=== PATIENT | male | born 1970 | race Caucasian/White ===

== ENCOUNTER 2016-10-01 12:42 | Emergency (ER) | payer OTHER ==
[2016-10-01 12:51] VITALS: BP 145/80; PULSE 71; RESP 18; TEMP 98.7
--- NOTE | 2016-10-01 13:25 | ED ---
General Adult HPI - General Chief complaint: Dental/Oral Stated complaint: Dental Pain Time Seen by Provider: 10/01/16 12:52 Source: patient, RN notes reviewed Mode of arrival: ambulatory Limitations: no limitations - History of Present Illness Initial comments: Patient 46-year-old male who presents emergency room today with a chief complaint of increased dental pain over the last 2 days. He does admit to a bad tooth of tooth #32. She states is been ongoing off and on over the last several months. States he was scheduled to have it removed. Patient states increased pain last 2 days. Patient denies any drainage or discharge. Does admit to some mild swelling. Patient denies any recent fever, chills, shortness of breath, chest pain, back pain, abdominal pain, nausea or vomiting, numbness or tingling, dysuria or hematuria, constipation or diarrhea, headaches or visual changes, or any other complaints. - Related Data Home Medications Medication Instructions Recorded Confirmed HYDROcodone/APAP 5-325MG [Padroni 5] 1 - 2 each PO Q6HR PRN 12/28/14 12/28/14 PARoxetine [Paxil] 20 mg PO DAILY 12/28/14 12/28/14 Previous Rx's Medication Instructions Recorded Clindamycin HCl [Cleocin] 300 mg PO Q6H 10 Days 10/01/16 Hydrocodone/Acetaminophen [Padroni 1 each PO Q6HR PRN #15 tab 10/01/16 5-325] Ibuprofen [Motrin] 800 mg PO Q6HR PRN #30 tab 10/01/16 Allergies Allergy/AdvReac Type Severity Reaction Status Date / Time Penicillins Allergy Unknown Verified 10/01/16 12:51 Childhood Review of Systems ROS Statement: Those systems with pertinent positive or pertinent negative responses have been documented in the HPI. ROS Other: All systems not noted in ROS Statement are negative. Past Medical History Past Medical History: No Reported History History of Any Multi-Drug Resistant Organisms: None Reported Past Surgical History: No Surgical Hx Reported Past Anesthesia/Blood Transfusion Reactions: No Reported Reaction Past Psychological History: Anxiety Smoking Status: Former smoker Past Alcohol Use History: Occasional Past Drug Use History: None Reported - Past Family History Father Family Medical History: Cancer Additional Family Medical History / Comment(s): Brain CA Mother Additional Family Medical History / Comment(s): stroke General Exam - General Exam Comments Initial Comments: General: The patient is awake and alert, in no distress, and does not appear acutely ill. Eye: Pupils are equal, round and reactive to light, extra-ocular movements are intact. No nystagmus. There is normal conjunctiva bilaterally. No signs of icterus. Ears, nose, mouth and throat: There are moist mucous membranes and no oral lesions. Patient does have fractured tooth #32 down to the gumline. Tender over tooth #31. No sign of abscess. Neck: The neck is supple, there is no tenderness or JVD. Cardiovascular: There is a regular rate and rhythm. No murmur, rub or gallop is appreciated. Respiratory: Lungs are clear to auscultation, respirations are non-labored, breath sounds are equal. No wheezes, stridor, rales, or rhonchi. Musculoskeletal: Normal ROM, no tenderness. Strength 5/5. Sensation intact. Pulses equal bilaterally 2+. Neurological: A&O x 3. CN II-XII intact, There are no obvious motor or sensory deficits. Coordination appears grossly intact. Speech is normal. Skin: Skin is warm and dry and no rashes or lesions are noted. Psychiatric: Cooperative, appropriate mood & affect, normal judgment. Limitations: no limitations Course Vital Signs 10/01/16 12:49 Temperature 98.7 F Pulse Rate 71 Respiratory 18 Rate Blood Pressure 145/80 O2 Sat by Pulse 96 Oximetry Medical Decision Making - Medical Decision Making Patient advised to follow-up with oral surgeon. Will be started on clindamycin. Given short prescription of pain medication. Disposition Clinical Impression: Dental abscess Disposition: HOME SELF-CARE Condition: Good Instructions: Dental Abscess (ED) Additional Instructions: Please follow-up with oral surgeon as discussed. Please use antibiotic as prescribed pain medication as needed. Please be aware that pain medicines may make you drowsy. Please return if any symptoms increase or worsen. Prescriptions: Clindamycin HCl [Cleocin] 300 mg PO Q6H 10 Days Hydrocodone/Acetaminophen [Padroni 5-325] 1 each PO Q6HR PRN #15 tab PRN Reason: Pain Ibuprofen [Motrin] 800 mg PO Q6HR PRN #30 tab PRN Reason: Pain Time of Disposition: 13:14
== END 2016-10-01 13:33 | disposition home or self-care (01) ==
LOC: EC 12:42
DX: K04.7 Periapical abscess without sinus (principal); F41.9 Anxiety disorder, unspecified; Z87.891 Personal history of nicotine dependence; Z79.899 Other long term (current) drug therapy; Z88.0 Allergy status to penicillin

== ENCOUNTER 2017-01-27 11:53 | Inpatient (IN) | payer OTHER ==
[2017-01-27] MEDS ORDERED: THIAMINE 100 MG/ML 2 ML VIAL IVPB STA (12:25)
[2017-01-27] MEDS ORDERED: SODIUM CHLORIDE 0.9% 1,000 ML IV STA (12:25)
[2017-01-27] MEDS ORDERED: SODIUM CHLORIDE 0.9% 500 ML IV STA (12:25)
[2017-01-27] MEDS ORDERED: FOLIC ACID 1 MG TAB PO STA (12:31)
[2017-01-27 12:35] LABS: Basophils # (A) 0.1 k/uL (0-0.2); Basophils % (A) 1 %; CH 32.4; CHCM 34.6; Eosinophils # (A) 0.1 k/uL (0-0.7); Eosinophils % (A) 1 %; HCT 44.5 % (39.0-53.0); HDW 2.05; HGB 14.9 gm/dL (13.0-17.5); Luc % (Auto) 3; Lymphocytes # (A) 1.6 k/uL (1.0-4.8); Lymphocytes % (A) 20 %; MCH 31.5 pg (25.0-35.0); MCHC 33.6 g/dL (31.0-37.0); MCV 93.8 fL (80.0-100.0); Mean Platelet Volume 7.7; Monocytes # (A) 0.5 k/uL (0-1.0); Monocytes % (A) 6 %; Neutrophils # (A) 5.7 k/uL (1.3-7.7); Neutrophils % (A) 71 %; RBC 4.74 m/uL (4.30-5.90); RDW 14.2 % (11.5-15.5); WBC 8.1 k/uL (3.8-10.6); WBC (Perox) 7.76
[2017-01-27 12:42] LABS: ALT 135 U/L (21-72); AST 106 U/L (17-59); Alkaline Phosphatase 61 U/L (38-126); Amylase 92 U/L (30-110); Anion Gap 16 mmol/L; Blood Urea Nitrogen 11 mg/dL (9-20); Calcium 9.4 mg/dL (8.4-10.2); Carbon Dioxide 20 mmol/L (22-30); Chloride 107 mmol/L (98-107); Glucose 180 mg/dL (74-99); Non-African American GFR(MDRD) >60 (>60 ml/min/1.73 sqM); Potassium 4.4 mmol/L (3.5-5.1); Sodium 143 mmol/L (137-145); Total Bilirubin 0.6 mg/dL (0.2-1.3); Total Protein 7.7 g/dL (6.3-8.2)
[2017-01-27] MEDS ORDERED: SODIUM CHLORIDE 0.9% 1,000 ML with MVI, ADULT NO.4 WITH VIT K 10 ML, THIAMINE 100 MG, F... IV ONE ×4 (12:43)
[2017-01-27] MEDS ORDERED: LORazepam 2 MG/ML SYRINGE IV STA (12:44)
[2017-01-27 12:50] LABS: Alcohol 444 mg/dL
[2017-01-27 13:10] LABS: Appearance,Urine Clear (Clear); Bilirubin,Urine Negative (Negative); Glucose,Urine (UA) Trace (Negative); Ketones,Urine Negative (Negative); Leukocyte Esterase,Urine Negative (Negative); Nitrite,Urine Negative (Negative); PH, Urine 6.5 (5.0-8.0); Protein,Urine Negative (Negative); Specific Gravity,Urine 1.002 (1.001-1.035); UA Billing (MACRO vs. MICRO) CHEM; Urobilinogen,Urine <2.0 mg/dL (<2.0)
--- NOTE | 2017-01-27 13:29 | ED ---
General Adult HPI - General Chief complaint: Alcohol Stated complaint: withdrawls Time Seen by Provider: 01/27/17 12:06 Source: patient, RN notes reviewed, old records reviewed Mode of arrival: ambulatory Limitations: no limitations - History of Present Illness Initial comments: A 47-year-old male the ER for evaluation of delirium, severe alcohol toxicity. Going to withdraw from alcohol. Alcohol withdrawal. Patient states his last drink was earlier today, started trying to quit since last night. Patient's been hallucinating, not acting appropriately per . Patient denies homicidal or suicidal. Patient is argumentative on exam - Related Data Home Medications Medication Instructions Recorded Confirmed HYDROcodone/APAP 5-325MG [Bolivar 5] 1 - 2 each PO Q6HR PRN 12/28/14 12/28/14 PARoxetine [Paxil] 20 mg PO DAILY 12/28/14 12/28/14 Previous Rx's Medication Instructions Recorded Clindamycin HCl [Cleocin] 300 mg PO Q6H 10 Days 10/01/16 Hydrocodone/Acetaminophen [B[place]ivar 1 each PO Q6HR PRN #15 tab 10/01/16 5-325] Ibuprofen [Motrin] 800 mg PO Q6HR PRN #30 tab 10/01/16 Allergies Allergy/AdvReac Type Severity Reaction Status Date / Time Penicillins Allergy Unknown Verified 01/27/17 11:58 Childhood Review of Systems ROS Statement: Those systems with pertinent positive or pertinent negative responses have been documented in the HPI. ROS Other: All systems not noted in ROS Statement are negative. Past Medical History Past Medical History: No Reported History Additional Past Medical History / Comment(s): ETOH abuse History of Any Multi-Drug Resistant Organisms: None Reported Past Surgical History: No Surgical Hx Reported Past Anesthesia/Blood Transfusion Reactions: No Reported Reaction Past Psychological History: Anxiety Smoking Status: Former smoker Past Alcohol Use History: Daily, Heavy Past Drug Use History: None Reported - Past Family History Father Family Medical History: Cancer Additional Family Medical History / Comment(s): Brain CA Mother Additional Family Medical History / Comment(s): stroke General Exam Limitations: no limitations General appearance: alert, in no apparent distress Head exam: Present: atraumatic, normocephalic, normal inspection Eye exam: Present: normal appearance, PERRL, EOMI. Absent: scleral icterus, conjunctival injection, periorbital swelling ENT exam: Present: normal exam, mucous membranes moist Neck exam: Present: normal inspection. Absent: tenderness, meningismus, lymphadenopathy Respiratory exam: Present: normal lung sounds bilaterally. Absent: respiratory distress, wheezes, rales, rhonchi, stridor Cardiovascular Exam: Present: regular rate, normal rhythm, normal heart sounds. Absent: systolic murmur, diastolic murmur, rubs, gallop, clicks GI/Abdominal exam: Present: soft, normal bowel sounds. Absent: distended, tenderness, guarding, rebound, rigid Extremities exam: Present: normal inspection, full ROM, normal capillary refill. Absent: tenderness, pedal edema, joint swelling, calf tenderness Back exam: Present: normal inspection Neurological exam: Present: alert, oriented X3, CN II-XII intact Psychiatric exam: Present: normal affect, normal mood Skin exam: Present: warm, dry, intact, normal color. Absent: rash Course Vital Signs 01/27/17 01/27/17 11:55 12:21 Temperature 97.5 F L Pulse Rate 77 76 Respiratory 18 26 H Rate Blood Pressure 136/76 128/84 O2 Sat by Pulse 98 97 Oximetry - Reevaluation(s) Reevaluation #1: 01/27/17 13:29 Patient eating chemical sedation regarding actions Medical Decision Making - Medical Decision Making 47 LDR for evaluation of alcohol cultural, patient's acutely alcohol intoxicated , [place]. Patient will be admitted for monitoring of vital signs, monitoring of electrolytes, rehydration, monitoring of acute alcoholic trauma - Lab Data Result diagrams: 01/27/17 12:15 01/27/17 12:15 Lab Results 01/27/17 01/27/17 01/27/17 Range/Units 12:15 12:15 12:15 WBC 8.1 (3.8-10.6) k/uL RBC 4.74 (4.30-5.90) m/uL Hgb 14.9 (13.0-17.5) gm/dL Hct 44.5 (39.0-53.0) % MCV 93.8 (80.0-100.0) fL MCH 31.5 (25.0-35.0) pg MCHC 33.6 (31.0-37.0) g/dL RDW 14.2 (11.5-15.5) % Plt Count 218 (150-450) k/uL Neutrophils % 71 % Lymphocytes % 20 % Monocytes % 6 % Eosinophils % 1 % Basophils % 1 % Neutrophils # 5.7 (1.3-7.7) k/uL Lymphocytes # 1.6 (1.0-4.8) k/uL Monocytes # 0.5 (0-1.0) k/uL Eosinophils # 0.1 (0-0.7) k/uL Basophils # 0.1 (0-0.2) k/uL Sodium 143 (137-145) mmol/L Potassium 4.4 (3.5-5.1) mmol/L Chloride 107 (98-107) mmol/L Carbon Dioxide 20 L (22-30) mmol/L Anion Gap 16 mmol/L BUN 11 (9-20) mg/dL Creatinine 0.62 L (0.66-1.25) mg/dL Est GFR (MDRD) Af Amer >60 (>60 ml/min/1.73 sqM) Est GFR (MDRD) Non-Af >60 (>60 ml/min/1.73 sqM) Glucose 180 H (74-99) mg/dL Calcium 9.4 (8.4-10.2) mg/dL Phosphorus 2.8 (2.5-4.5) mg/dL Magnesium 2.0 (1.6-2.3) mg/dL Total Bilirubin 0.6 (0.2-1.3) mg/dL AST 106 H (17-59) U/L ALT 135 H (21-72) U/L Alkaline Phosphatase 61 (38-126) U/L Total Protein 7.7 (6.3-8.2) g/dL Albumin 4.9 (3.5-5.0) g/dL Amylase 92 (30-110) U/L Lipase 261 (23-300) U/L Urine Color Urine Appearance (Clear) Urine pH (5.0-8.0) Ur Specific Ackerman (1.001-1.035) Urine Protein (Negative) Urine Glucose (UA) (Negative) Urine Ketones (Negative) Urine Blood (Negative) Urine Nitrite (Negative) Urine Bilirubin (Negative) Urine Urobilinogen (<2.0) mg/dL Ur Leukocyte Esterase (Negative) Urine Opiates Screen (NotDetected) Ur Oxycodone Screen (NotDetected) Urine Methadone Screen (NotDetected) Ur Propoxyphene Screen (NotDetected) Ur Barbiturates Screen (NotDetected) U Tricyclic Antidepress (NotDetected) Ur Phencyclidine Scrn (NotDetected) Ur Amphetamines Screen (NotDetected) U Methamphetamines Scrn (NotDetected) U Benzodiazepines Scrn (NotDetected) Urine Cocaine Screen (NotDetected) U Marijuana (THC) Screen (NotDetected) Serum Alcohol 444 mg/dL 01/27/17 Range/Units 12:54 WBC (3.8-10.6) k/uL RBC (4.30-5.90) m/uL Hgb (13.0-17.5) gm/dL Hct (39.0-53.0) % MCV (80.0-100.0) fL MCH (25.0-35.0) pg MCHC (31.0-37.0) g/dL RDW (11.5-15.5) % Plt Count (150-450) k/uL Neutrophils % % Lymphocytes % % Monocytes % % Eosinophils % % Basophils % % Neutrophils # (1.3-7.7) k/uL Lymphocytes # (1.0-4.8) k/uL Monocytes # (0-1.0) k/uL Eosinophils # (0-0.7) k/uL Basophils # (0-0.2) k/uL Sodium (137-145) mmol/L Potassium (3.5-5.1) mmol/L Chloride (98-107) mmol/L Carbon Dioxide (22-30) mmol/L Anion Gap mmol/L BUN (9-20) mg/dL Creatinine (0.66-1.25) mg/dL Est GFR (MDRD) Af Amer (>60 ml/min/1.73 sqM) Est GFR (MDRD) Non-Af (>60 ml/min/1.73 sqM) Glucose (74-99) mg/dL Calcium (8.4-10.2) mg/dL Phosphorus (2.5-4.5) mg/dL Magnesium (1.6-2.3) mg/dL Total Bilirubin (0.2-1.3) mg/dL AST (17-59) U/L ALT (21-72) U/L Alkaline Phosphatase (38-126) U/L Total Protein (6.3-8.2) g/dL Albumin (3.5-5.0) g/dL Amylase (30-110) U/L Lipase (23-300) U/L Urine Color Colorless Urine Appearance Clear (Clear) Urine pH 6.5 (5.0-8.0) Ur Specific Ackerman 1.002 (1.001-1.035) Urine Protein Negative (Negative) Urine Glucose (UA) Trace H (Negative) Urine Ketones Negative (Negative) Urine Blood Negative (Negative) Urine Nitrite Negative (Negative) Urine Bilirubin Negative (Negative) Urine Urobilinogen <2.0 (<2.0) mg/dL Ur Leukocyte Esterase Negative (Negative) Urine Opiates Screen Not Detected (NotDetected) Ur Oxycodone Screen Not Detected (NotDetected) Urine Methadone Screen Not Detected (NotDetected) Ur Propoxyphene Screen Not Detected (NotDetected) Ur Barbiturates Screen Not Detected (NotDetected) U Tricyclic Antidepress Not Detected (NotDetected) Ur Phencyclidine Scrn Not Detected (NotDetected) Ur Amphetamines Screen Not Detected (NotDetected) U Methamphetamines Scrn Not Detected (NotDetected) U Benzodiazepines Scrn Not Detected (NotDetected) Urine Cocaine Screen Not Detected (NotDetected) U Marijuana (THC) Screen Not Detected (NotDetected) Serum Alcohol mg/dL Disposition Clinical Impression: Alcoholic intoxication, Toxic effect of alcohol, Alcoholic hepatitis, Delirium Disposition: ADMITTED IP TO THIS [facility] Condition: Fair Referrals: Parmjit Rider MD [Primary Care Provider] - 1-2 days
[2017-01-27] MEDS ORDERED: THIAMINE 100 MG/ML 2 ML VIAL IM STA (13:31)
[2017-01-27] MEDS ORDERED: LORazepam 2 MG/ML SYRINGE IV PRN ×2 (13:31)
[2017-01-27] MEDS: DIAZEPAM 5 MG/ML 2 ML SYRINGE IVP SCH ×2 (15:26→21:10)
[2017-01-27 17:06] VITALS: BMI 25.0
[2017-01-27] MEDS ORDERED: NICOTINE 21MG/24HR PATCH TRANSDERM STA (17:21)
[2017-01-27] MEDS: THIAMINE 100 MG TAB PO SCH (17:48)
[2017-01-27] MEDS: METOPROLOL TARTRATE 25 MG TAB PO SCH (21:10)
[2017-01-28] MEDS: DIAZEPAM 5 MG/ML 2 ML SYRINGE IVP SCH ×2 (03:34→08:00)
[2017-01-28 07:24] VITALS: RESP 16
[2017-01-28] MEDS: METOPROLOL TARTRATE 25 MG TAB PO SCH ×3 (07:59→20:33)
[2017-01-28] MEDS: NICOTINE 21MG/24HR PATCH TRANSDERM SCH (07:59)
[2017-01-28] MEDS: LORazepam 2 MG/ML SYRINGE IV PRN ×4 (08:08→20:25)
[2017-01-28] MEDS: THIAMINE 100 MG TAB PO SCH ×2 (12:27→16:04)
[2017-01-28] MEDS: FAMOTIDINE 20 MG TAB PO SCH ×2 (14:02→20:33)
[2017-01-28] MEDS: DIAZEPAM 5 MG TAB PO SCH ×2 (14:02→18:09)
[2017-01-28] MEDS: NICOTINE POLACRILEX 2 MG GUM BUCCAL PRN ×2 (14:03→20:34)
--- NOTE | 2017-01-28 17:46 | HP ---
DATE OF ADMISSION: 01/27/2017 PRESENTING COMPLAINT: Alcohol intoxication. HISTORY OF PRESENTING COMPLAINT: This is a 47-year-old patient of Dr. Rider with longstanding history of alcoholism. The patient had been drinking for quite some time then became sober for over a year then started back about a year and a half ago. Drinks vodka. Patient's /significant other also drinks alcohol sometimes. Patient got really fed up, felt exhausted yesterday and has come in. Patient is having early alcohol withdrawal, put on Valium. Patient easily gets nauseated and dry heaving. Feels tired. The patient has got some tremors. REVIEW OF SYSTEMS: CONSTITUTIONAL: Weak, tired, tremors. HEENT: None. RESPIRATORY: None. CARDIOVASCULAR: None. GASTROINTESTINAL: Heartburn, nausea. GENITOURINARY: None. MUSCULOSKELETAL: None. DERMATOLOGIC: None. HEMATOLOGIC: None. LYMPHATIC: None. PSYCHIATRY: ( ). NEUROLOGICAL: Tremors present. Past medical history of chronic alcoholism with some low back pain, GERD. PAST SURGICAL HISTORY: Surgery for penis. PSYCH HISTORY: Anxiety. 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 Smokes about 1 to 2 packs a day and drinking vodka. Family history of brain cancer. HOME MEDICATIONS: 1. Vitamin B complex 1 capsule p.o. daily. 2. Vitamin D3, 1000 units p.o. daily. 3. Multivitamin 1 tablet p.o. daily. 4. Lexapro 10 mg p.o. daily. ALLERGIES: PENICILLIN. On examination, temperature 97.5, pulse 77, respirations 18, blood pressure 136/76, pulse ox 98% on room air. GENERAL APPEARANCE: Average built, lying in bed, somewhat shaky, restless. EYES: Pupils equal. Conjunctivae normal. HENT: Oral cavity normal. NECK: JVD not raised. Mass not palpable. RESPIRATORY: Effort normal. LUNGS: Fair air entry. CARDIOVASCULAR: First and second sounds normal. No edema. ABDOMEN: Soft, nontender. Liver and spleen not palpable. LYMPHATIC: No lymph node palpable in the neck or axillae. PSYCHIATRY: Alert and oriented x3. Mood and affect anxious appearing. NEUROLOGICAL: Pupils equal. Cranial nerves grossly intact. Generalized tremulousness is present. INVESTIGATIONS: White count 8.1, hemoglobin 14.9. Potassium 4.4. Glucose 180. AST 106, ALT 135. Serum alcohol was 444. ASSESSMENT: 1. Acute alcohol intoxication, present on admission. 2. Alcohol withdrawals. 3. Chronic alcohol dependence. 4. Alcoholic hepatitis. 5. Hyperglycemia. 6. Chronic nicotine dependence, smokes cigarettes. 7. Gastroesophageal reflux disease. PLAN: I had a lengthy talk with the patient and , talked about counseling sessions for alcohol. The patient does want to try and stop. At the present time, I have put the patient on Valium 10 mg q.6 and also beta blockers to cut back on the sympathetic drive, Pepcid for GI and a nicotine patch. Patient will be watched closely and see how he fairs. Care was discussed in detail.
[2017-01-29] MEDS: DIAZEPAM 5 MG TAB PO SCH ×4 (00:20→17:51)
[2017-01-29] MEDS: LORazepam 2 MG/ML SYRINGE IV PRN ×3 (06:31→21:18)
[2017-01-29] MEDS: NICOTINE 21MG/24HR PATCH TRANSDERM SCH ×2 (06:31→21:25)
[2017-01-29] MEDS: METOPROLOL TARTRATE 25 MG TAB PO SCH ×3 (08:41→21:22)
[2017-01-29] MEDS: FAMOTIDINE 20 MG TAB PO SCH ×2 (08:41→21:22)
[2017-01-29] MEDS: THIAMINE 100 MG TAB PO SCH ×2 (12:45→16:06)
--- NOTE | 2017-01-29 21:32 | P.PN ---
Progress Note - Text DATE OF SERVICE: 01/29/2017 PRESENTING COMPLAINT: Alcohol intoxication INTERVAL HISTORY: This 47-year-old male who presented with acute alcohol intoxication and withdrawal symptoms. Patient symptoms while improved, are still present. Appears fidgety, unable to sit still, when asked to extend his arms is visible shaking, while sitting on the edge of the bed patient had visible shaking as well. States he is not hallucinating but would really like to go home. Patient was able to eat some of his meals, is able to get up and around in the room to one from the bathroom. Long conversation was had regarding the perils of alcohol withdrawal, and the risk that he would be taking by going home now. He verbalized understanding however continue to push to go home. Explained to patient that late afternoon rounds would occur and we would see how he felt at that time. REVIEW OF SYSTEMS: Done for constitutional ,cardiovascular, GI, pulmonary with relevant findings as above. CURRENT MEDICATIONS Valium 15 mg by mouth every 6 hours, Pepcid 20 mg twice a day, Ativan, Lopressor , nicotine patch, Nicorette gum, vitamin B1. PHYSICAL EXAM VITAL SIGNS: Temperature 98.0, pulse 65, respiratory rate 16, blood pressure 140/80, oxygen saturation 98% on room air. GENERAL APPEARANCE: . Sitting in bed, anxious, visibly shaking, appears sweaty, EYES: Pupils equal. Conjunctiva normal. NECK: JVD not raised. Mass not palpable. RESPIRATORY: Respiratory effort increased. Lungs diminished bilaterally to auscultation. CARDIOVASCULAR: First and second sounds normal. No edema. ABDOMEN: Soft. Liver and spleen not palpable. No tenderness. No mass palpable. PSYCHIATRY: Alert and oriented x3. Mood and affect anxiox. INVESTIGATIONS: None new ASSESSMENT: Acute alcohol intoxication, present on admission, improving Alcohol withdrawals, improving Chronic alcohol dependence. Alcoholic hepatitis. Hyperglycemia, not on insulin. Chronic nicotine dependence, smokes cigarettes. Gastroesophageal reflux disease. PLAN: Currently on Valium Lopressor and CIWA scale for withdrawal symptoms. While patient's symptoms have improved in the past 24 hours, patient remains fidgety and anxious to leave. Informed patient to wait for afternoon rounds, we would see how he feels. Discussion was had with Dr. Cuellar regarding the concerns above, increased amount of Valium patient is receiving to help minimize some of his symptoms. Patient will be reevaluated on late afternoon rounds. We'll continue to monitor very closely. [employer] statement: Patient was seen and examined by nurse practitioner Nyasia Zaidi and all elements of the case discussed with attending Dr. Cuellar
[2017-01-30 01:21] VITALS: BP 134/88; PULSE 60; TEMP 97.9
[2017-01-30] MEDS: DIAZEPAM 5 MG TAB PO SCH ×2 (05:59)
--- NOTE | 2017-01-30 07:46 | PN ---
DATE OF SERVICE: 01/29/2017 ATTENDING NOTE: This patient was seen and examined by me earlier today. I reviewed the note of my nurse practitioner, Ms. Zaidi. Reviewed and discussed additional findings below. This is a patient who presented with alcohol withdrawals and alcoholic intoxication. Earlier today, patient is rather uncontrolled and increased the patient's Valium to 50 mg q.4. Later in the day he was a bit more settled, started to walk up and down the hallway. On examination, still somewhat shaky at rest, anxious. Blood pressure 140/80. Anxious-appearing. ASSESSMENT: 1. Alcohol withdrawal, uncontrolled this morning. 2. Chronic alcohol dependence. PLAN: I had a very lengthy talk with the patient. He was keen to go home. He has a lot of work to do. I did tell him that he is on a hefty dose of Valium right now and it would not be a good idea to go home. Very lengthy discussion was held and told him depending on how he does tomorrow, we may consider. Total time spent today was about 40 minutes with over 25 minutes of discussion today.
--- NOTE | 2017-02-03 13:22 | DS ---
DATE OF ADMISSION: 01/27/2017 DATE OF DISCHARGE: 01/30/2017 DATE LEFT AGAINST MEDICAL ADVICE: 01/30/2017 FINAL DIAGNOSES: 1. Acute alcohol intoxication present on admission. 2. Alcohol withdrawal syndrome including delirium tremens. 3. Chronic alcohol dependence. 4. Alcoholic hepatitis. 5. Hypoglycemia. 6. Chronic nicotine dependence, cigarette dependent. 7. Gastroesophageal reflux disease. HOSPITAL COURSE: This patient had alcohol problem for long time presented with alcoholic intoxication and alcoholic hepatitis, put on high dose of Valium and beta blockers, nicotine patch. I did middle school guidance counselor the patient extensively. Patient was very keen to go home. It was explained to him it is very important he stays back or he will go back into drinking. On 01/30/17 early in the morning, the patient left AGAINST MEDICAL ADVICE.
== END 2017-01-30 06:24 | disposition left against medical advice (07) | DRG 894 ==
LOC: EC 11:53 → 4MS4W 13:31
PROVIDERS: ADMIT Hospitalist; ATTEND Hospitalist
PROC: HZ2ZZZZ Detoxification Services for Substance Abuse Treatment (ICD-10-PCS; principal; 2017-01-27)
DX: F10.221 Alcohol dependence with intoxication delirium (principal); K70.10 Alcoholic hepatitis without ascites; F10.231 Alcohol dependence with withdrawal delirium; K21.9 Gastro-esophageal reflux disease without esophagitis; R73.9 Hyperglycemia, unspecified; R11.0 Nausea; M54.5 Low back pain; R53.1 Weakness; R12 Heartburn; F17.210 Nicotine dependence, cigarettes, uncomplicated; F41.9 Anxiety disorder, unspecified; Z88.0 Allergy status to penicillin; Z53.21 Procedure and treatment not carried out due to patient leaving prior to being seen by health care provider; Z71.41 Alcohol abuse counseling and surveillance of alcoholic; Z79.899 Other long term (current) drug therapy; Z80.8 Family history of malignant neoplasm of other organs or systems; Z87.438 Personal history of other diseases of male genital organs; Z82.3 Family history of stroke; Y90.8 Blood alcohol level of 240 mg/100 ml or more
CPT/HCPCS: 36415; 80053; 80306; 80320; 81003; 82075; 82150; 83690; 83735; 84100; 85025; 96361; 96365; 96375; 99285

== ENCOUNTER 2017-04-07 02:19 | Inpatient (IN) | payer OTHER ==
[2017-04-07] MEDS ORDERED: SODIUM CHLORIDE 0.9% 1,000 ML with MVI, ADULT NO.4 WITH VIT K 10 ML, THIAMINE 100 MG, F... IV ONE ×4 (02:39)
--- NOTE | 2017-04-07 02:42 | ED ---
General Adult HPI - General Chief complaint: Overdose Stated complaint: overdose Time Seen by Provider: 04/07/17 02:35 Source: patient, RN notes reviewed Mode of arrival: wheelchair Limitations: no limitations - History of Present Illness Initial comments: Patient is a 47-year-old male presenting to the emergency department for alcohol intoxication and possibly taking Klonopin. Patient does not recall whether or not he took Klonopin. Reportedly patient's does have concern for this. No other reported ingestion. Patient does admit to having difficult times trying to discontinue alcohol. Patient does admit to feeling depressed. Patient is unclear if he is having thoughts of self-harm. No homicidal thoughts. No hallucinations. No physical complaints. - Related Data Home Medications Medication Instructions Recorded Confirmed Cholecalciferol [Vitamin D3] 1,000 unit PO DAILY 01/27/17 01/27/17 Escitalopram [Lexapro] 10 mg PO DAILY 01/27/17 01/27/17 Multivitamins, Thera [Multivitamin 1 tab PO DAILY 01/27/17 01/27/17 (formulary)] Vitamin B Complex 1 cap PO DAILY 01/27/17 01/27/17 Allergies Allergy/AdvReac Type Severity Reaction Status Date / Time Penicillins Allergy Unknown Verified 04/07/17 02:28 Childhood Review of Systems ROS Statement: Those systems with pertinent positive or pertinent negative responses have been documented in the HPI. ROS Other: All systems not noted in ROS Statement are negative. Constitutional: Denies: fever Eyes: Denies: eye pain ENT: Denies: ear pain Respiratory: Denies: cough Cardiovascular: Denies: chest pain Endocrine: Denies: fatigue Gastrointestinal: Denies: abdominal pain Genitourinary: Denies: dysuria Musculoskeletal: Denies: arthralgia Skin: Denies: rash Neurological: Denies: weakness Psychiatric: Reports: depression Past Medical History Past Medical History: GERD/Reflux Additional Past Medical History / Comment(s): ETOH abuse, low back pain History of Any Multi-Drug Resistant Organisms: None Reported Past Surgical History: No Surgical Hx Reported Additional Past Surgical History / Comment(s): 2014 surgery for fractured penis Past Anesthesia/Blood Transfusion Reactions: No Reported Reaction Past Psychological History: Anxiety Smoking Status: Current every day smoker - Past Family History Father Family Medical History: Cancer Additional Family Medical History / Comment(s): Brain CA and is . Mother Family Medical History: CVA/TIA Additional Family Medical History / Comment(s): Mother is living. General Exam Limitations: no limitations General appearance: alert, in no apparent distress Head exam: Present: atraumatic Eye exam: Present: normal appearance, PERRL, EOMI, nystagmus ENT exam: Present: normal oropharynx Neck exam: Present: normal inspection Respiratory exam: Present: normal lung sounds bilaterally Cardiovascular Exam: Present: regular rate, normal rhythm GI/Abdominal exam: Present: soft. Absent: tenderness Extremities exam: Present: normal inspection Neurological exam: Present: alert Psychiatric exam: Present: depressed Skin exam: Present: normal color Course Vital Signs 04/07/17 02:20 Temperature 97.5 F L Pulse Rate 77 Respiratory 20 Rate Blood Pressure 127/88 O2 Sat by Pulse 96 Oximetry - Reevaluation(s) Reevaluation #1: 04/07/17 03:53 Patient reevaluated and unchanged. Case discussed with Dr. casarez, who will admit for Dr. Rider. Psychiatry will be consult. Medical Decision Making - Lab Data Result diagrams: 04/07/17 03:02 04/07/17 03:02 Lab Results 04/07/17 04/07/17 04/07/17 Range/Units 03:02 03:02 03:02 WBC 10.6 (3.8-10.6) k/uL RBC 5.32 (4.30-5.90) m/uL Hgb 16.6 (13.0-17.5) gm/dL Hct 50.1 (39.0-53.0) % MCV 94.0 (80.0-100.0) fL MCH 31.1 (25.0-35.0) pg MCHC 33.1 (31.0-37.0) g/dL RDW 14.2 (11.5-15.5) % Plt Count 317 (150-450) k/uL Neutrophils % 66 % Lymphocytes % 23 % Monocytes % 7 % Eosinophils % 1 % Basophils % 1 % Neutrophils # 7.0 (1.3-7.7) k/uL Lymphocytes # 2.4 (1.0-4.8) k/uL Monocytes # 0.7 (0-1.0) k/uL Eosinophils # 0.1 (0-0.7) k/uL Basophils # 0.1 (0-0.2) k/uL PT 9.7 (9.0-12.0) sec INR 0.9 (<1.2) Sodium 145 (137-145) mmol/L Potassium 4.1 (3.5-5.1) mmol/L Chloride 107 (98-107) mmol/L Carbon Dioxide 22 (22-30) mmol/L Anion Gap 16 mmol/L BUN 14 (9-20) mg/dL Creatinine 0.70 (0.66-1.25) mg/dL Est GFR (MDRD) Af Amer >60 (>60 ml/min/1.73 sqM) Est GFR (MDRD) Non-Af >60 (>60 ml/min/1.73 sqM) Glucose 89 (74-99) mg/dL Calcium 9.4 (8.4-10.2) mg/dL Total Bilirubin 0.5 (0.2-1.3) mg/dL AST 45 (17-59) U/L ALT 44 (21-72) U/L Alkaline Phosphatase 58 (38-126) U/L Total Protein 7.4 (6.3-8.2) g/dL Albumin 4.7 (3.5-5.0) g/dL Salicylates <1.0 mg/dL Acetaminophen <10.0 ug/mL Serum Alcohol 426 mg/dL Disposition Clinical Impression: Alcoholic intoxication, Benzodiazepine overdose of undetermined intent Disposition: ADMITTED IP TO THIS HOSP Referrals: Parmjit Rider MD [Primary Care Provider] - 1-2 days Decision Time: 03:53
[2017-04-07 03:11] LABS: Basophils # (A) 0.1 k/uL (0-0.2); Basophils % (A) 1 %; CH 32.3; CHCM 34.5; Eosinophils # (A) 0.1 k/uL (0-0.7); Eosinophils % (A) 1 %; HCT 50.1 % (39.0-53.0); HDW 2.22; HGB 16.6 gm/dL (13.0-17.5); Luc # (Auto) 0.26; Luc % (Auto) 2; Lymphocytes # (A) 2.4 k/uL (1.0-4.8); Lymphocytes % (A) 23 %; MCH 31.1 pg (25.0-35.0); MCHC 33.1 g/dL (31.0-37.0); Mean Platelet Volume 7.3; Monocytes # (A) 0.7 k/uL (0-1.0); Monocytes % (A) 7 %; Neutrophils % (A) 66 %; RBC 5.32 m/uL (4.30-5.90); RDW 14.2 % (11.5-15.5); WBC 10.6 k/uL (3.8-10.6)
[2017-04-07 03:23] LABS: INR 0.9 (<1.2); Prothrombin Time 9.7 sec (9.0-12.0)
[2017-04-07 03:33] LABS: ALT 44 U/L (21-72); AST 45 U/L (17-59); Acetaminophen <10.0 ug/mL; Alkaline Phosphatase 58 U/L (38-126); Anion Gap 16 mmol/L; Blood Urea Nitrogen 14 mg/dL (9-20); Calcium 9.4 mg/dL (8.4-10.2); Carbon Dioxide 22 mmol/L (22-30); Chloride 107 mmol/L (98-107); Glucose 89 mg/dL (74-99); Non-African American GFR(MDRD) >60 (>60 ml/min/1.73 sqM); Potassium 4.1 mmol/L (3.5-5.1); Salicylate <1.0 mg/dL; Sodium 145 mmol/L (137-145); Total Bilirubin 0.5 mg/dL (0.2-1.3); Total Protein 7.4 g/dL (6.3-8.2)
[2017-04-07 03:49] LABS: Alcohol 426 mg/dL
[2017-04-07] MEDS ORDERED: NALOXONE 0.4 MG/ML 1 ML VIAL IV PRN (03:54)
[2017-04-07] MEDS ORDERED: THIAMINE 100 MG/ML 2 ML VIAL IM STA (03:56)
[2017-04-07] MEDS ORDERED: LORazepam 2 MG/ML SYRINGE IV PRN ×2 (03:56)
[2017-04-07] MEDS ORDERED: HALOPERIDOL LACTATE 5 MG/ML 1 ML VIAL IM ONE (04:12)
[2017-04-07 04:51] VITALS: BMI 23.7
[2017-04-07] MEDS: LORazepam 2 MG/ML SYRINGE IV PRN ×3 (05:29→18:35)
[2017-04-07] MEDS: NICOTINE 21MG/24HR PATCH TRANSDERM SCH (12:42)
--- NOTE | 2017-04-07 12:44 | P.HPIM ---
History of Present Illness H&P Date: 04/07/17 Chief Complaint: Alcohol intoxication History of present complaint: This is a 47-year-old patient of Dr. New.Patient is a long-standing history of alcoholism. Was in the hospital about 2 months ago. The patient was back in 4 to the patient lives with his significant other and drinks about a fifth of vodka a day and drinks overnight for monitoring tonight. Also smokes cigarettes. Patient about in about 2:00 in the morning but intoxicated depressed some suicidal ideation. Patient currently states that he may have said something stupid does not think he would do that. Lethargic tired that he ate his breakfast this morning. The bili much in bed. Anxious. GEN.: Tired EYES: None HEENT: None NECK: None RESPIRATORY: None CARDIOVASCULAR: None GASTROINTESTINAL: Heartburn GENITOURINARY: None MUSCULOSKELETAL: None LYMPHATICS: None HEMATOLOGICAL: None PSYCHIATRY: Anxious depressed NEUROLOGICAL: None Past medical history: Chronic alcohol dependence, alcoholic hepatitis, chronic nicotine dependence, GERD Past surgical history surgery for practice fractured penis and did great break both his arms also had laceration of his liver and fracture of his ribs in 2011 new primary Social history: Has a girlfriend. 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 Smokes about 2 packs a day for about 32 years and drinking about a fifth of vodka a day sometimes marijuana. Family history: Brain cancer : Home medications: Home medications reviewed ALLERGIES: Penicillin VITAL SIGNS: 37.5, 77, 20, 127/88, and 6% room air GENERAL: [Average built, laying in bed tired appearing. EYES: Pupils equal. Conjunctiva normal. HEENT: External appearance of nose and ears normal, oral cavity grossly normal. NECK: JVD not raised; masses not palpable. HEART: First and second heart sounds are normal; no edema. LUNGS: Respiratory rate normal; clear to auscultation. ABDOMEN: Soft, nontender, liver spleen not palpable, no masses palpable. LYMPHATICS: No lymph nodes palpable in the axilla and neck. PSYCH: Alert and oriented x3; mood and affect anxious appearingl. NEUROLOGICAL: Cranial nerves grossly intact; no facial asymmetry, power and sensation grossly intact. Investigations white count 10.6 hemoglobin 16.6 potassium 4.1 Urine drug screen positive for marijuana, serum alcohol for 426 Assessment: 1-acute metabolic encephalopathy from acute alcohol intoxication present admission -Chronic alcohol dependency -Alcoholic hepatitis --Chronic nicotine dependence patient cigarette smoker -GERD probably from alcoholic gastritis -Depression not otherwise specified controlled with acute flareup Plan: Patient has a sitter at the bedside. Psychiatry is consulted. We will put the patient on Valium for DVT prophylaxis. Did educational guidance counselor patient against smoking and alcohol. Also given a nicotine patch. Past Medical History Past Medical History: GERD/Reflux Additional Past Medical History / Comment(s): ETOH abuse, low back pain History of Any Multi-Drug Resistant Organisms: None Reported Past Surgical History: No Surgical Hx Reported, Orthopedic Surgery Additional Past Surgical History / Comment(s): 2014 surgery for fractured penis. Pt. states he broke both of his arms and had surgery; states back in 1999 -something. States he lacerated his liver. States he fractured all of his ribs back in 2011. Past Anesthesia/Blood Transfusion Reactions: No Reported Reaction Past Psychological History: Anxiety Additional Psychological History / Comment(s): Pt resides with his significant other. 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 Smoking Status: Current every day smoker Past Alcohol Use History: Daily, Heavy Additional Past Alcohol Use History / Comment(s): Pt started smoking in 1984 and is about a 2 ppd smoker. He has been drinking more for quite a while and is up to at least 1/5 of vodka a day. Past Drug Use History: Marijuana - Past Family History Father Family Medical History: Cancer Additional Family Medical History / Comment(s): Brain CA and is . Mother Family Medical History: CVA/TIA Additional Family Medical History / Comment(s): Mother is living. Medications and Allergies Home Medications Medication Instructions Recorded Confirmed Type Cholecalciferol [Vitamin D3] 1,000 unit PO DAILY 01/27/17 04/07/17 History Escitalopram [Lexapro] 10 mg PO DAILY 01/27/17 04/07/17 History Multivitamins, Thera [Multivitamin 1 tab PO DAILY 01/27/17 04/07/17 History (formulary)] Vitamin B Complex 1 cap PO DAILY 01/27/17 04/07/17 History clonazePAM [KlonoPIN] 1 mg PO TID 04/07/17 04/07/17 History Allergies Allergy/AdvReac Type Severity Reaction Status Date / Time Penicillins Allergy Unknown Verified 04/07/17 08:04 Childhood Results CBC & Chem 7: 04/07/17 03:02 04/07/17 03:02
[2017-04-07] MEDS: METOPROLOL TARTRATE 12.5 MG TAB PO SCH ×2 (13:02→21:35)
[2017-04-07] MEDS: DIAZEPAM 5 MG TAB PO SCH ×3 (13:06→21:36)
[2017-04-07] MEDS: THIAMINE 100 MG TAB PO SCH (17:09)
[2017-04-08] MEDS: METOPROLOL TARTRATE 12.5 MG TAB PO SCH (07:39)
[2017-04-08] MEDS: NICOTINE 21MG/24HR PATCH TRANSDERM SCH (07:39)
[2017-04-08] MEDS: DIAZEPAM 5 MG TAB PO SCH (07:39)
[2017-04-08 07:46] VITALS: BP 141/94; PULSE 62; RESP 16; TEMP 97.4
[2017-04-08] MEDS: LORazepam 2 MG/ML SYRINGE IV PRN ×2 (08:03→12:30)
[2017-04-08] MEDS ORDERED: MULTIVITAMINS, THERA 1 EACH TAB PO SCH (12:00)
[2017-04-08] MEDS: THIAMINE 100 MG TAB PO SCH (12:30)
--- NOTE | 2017-04-08 12:34 | P.DS ---
Providers Date of admission: 04/07/17 15:53 Expected date of discharge: 04/08/17 Attending physician: Mark Cuellar Consults: 04/07/17 03:54 Consult Physician Urgent Consulting Provider: Alonzo Thomson Consult Reason/Comments: Klonopin overdose, depression Do you want consulting provider notified?: Yes Primary care physician: Parmjit Rider Hospital Course: Final diagnoses: 1-acute metabolic encephalopathy from acute alcohol intoxication present on admission -Chronic alcohol dependency -Alcoholic hepatitis --Chronic nicotine dependence patient cigarette smoker -GERD probably from alcoholic gastritis -Depression not otherwise specified controlled with acute flareup Hospital course: This is a patient with long-standing history of alcoholism. Presents with alkaline intoxication depression initially had some suicidal ideation and he's told me that is very stupid about the same thing. Was put on Valium remained calm. Today he very much wants to go home had a long talk with the patient counseled him against smoking and alcohol. He was to make things work. Discussed with Dr. Thomson of psychiatry. He cleared the patient to be discharged.. Discussion and discharge planning more than 35 minutes. On examination: Lungs-clear to station, cardiovascular first seconds are normal, abdomen-soft nontender Psych AO 3 mood affect normal. Consultation: Psychiatry-Dr. Thomson Plan - Discharge Summary New Discharge Prescriptions: New Diazepam [Valium] 0 mg PO DIRECTED #12 tab Metoprolol Tartrate [Lopressor] 12.5 mg PO BID #6 tab Nicotine 21Mg/24Hr Patch [Habitrol] 1 patch TRANSDERM DAILY #14 patch Continue Cholecalciferol [Vitamin D3] 1,000 unit PO DAILY Multivitamins, Thera [Multivitamin (formulary)] 1 tab PO DAILY Escitalopram [Lexapro] 10 mg PO DAILY Vitamin B Complex 1 cap PO DAILY No Action clonazePAM [KlonoPIN] 1 mg PO TID Discharge Medication List Cholecalciferol [Vitamin D3] 1,000 unit PO DAILY 01/27/17 [History] Escitalopram [Lexapro] 10 mg PO DAILY 01/27/17 [History] Multivitamins, Thera [Multivitamin (formulary)] 1 tab PO DAILY 01/27/17 [History ] Vitamin B Complex 1 cap PO DAILY 01/27/17 [History] clonazePAM [KlonoPIN] 1 mg PO TID 04/07/17 [History] Diazepam [Valium] 0 mg PO DIRECTED #12 tab 04/08/17 [Rx] Metoprolol Tartrate [Lopressor] 12.5 mg PO BID #6 tab 04/08/17 [Rx] Nicotine 21Mg/24Hr Patch [Habitrol] 1 patch TRANSDERM DAILY #14 patch 04/08/17 [ Rx] Follow up Appointment(s)/Referral(s): Parmjit Rider MD [Primary Care Provider] - 3 Days
--- NOTE | 2017-04-08 12:34 | CONS ---
DATE OF SERVICE: 04/07/2017 PURPOSE OF CONSULTATION: Evaluation for alcoholism, acute intoxication and alcohol withdrawal. 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 He has has a number of admission for acute detoxification. He indicates that he has had past diagnosis of delirium tremens where he was reported to be confused, delirious and having psychotic symptoms. He has a long history of alcohol use going back to his 20s. He says in the last ten years or more, he has progressively used more alcohol and currently reports drinking about a fifth of vodka per day. He notes that he gets up on the morning and will drink to quiet his shakes and then he is able to go to work. He says he has made efforts in the past to drink, to stop drinking though for the most part, though he rarely goes more than several days to a week without drinking. His longest period of sobriety was from 2011 to 2012 when he was free of alcohol for al year and a half. He said part of that related to being in long term after having been arrested fro driving on a suspended license. Apparently he has had a number of charges relating to that. He has had two DWI in the . He says typically he will dry out for a few days and then will get back into drinking. He acknowledges that withdrawal issues will get intense for him after a few days when he will have mood swings, irritability and depressed mood and physical symptoms. Alcohol will relieve his symptoms for a short term. He says there is at least part of him that has motivations for stop drinking. He recognizes the degree to which his drinking is affecting his life. 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 According to records, he lives with his significant other who also has alcohol use. This may be a complication to his own issues. On admission, he apparently made some indications about having suicide thoughts. When I interviewed him, he made no indication in that regard. When I talked to nursing , they said in general he has been doing fairly well. He dimas been cooperative. For the most part, he has been fairly calm. He has only required a total of 3 mg of Ativan. He has maintained good orientation and clear mentation. Apparently he is on withdrawal protocol. He is receiving Valium 5 mg three times a day in addition to prn Ativan titrated to withdrawal symptoms based on his CIWA score. At home, it was noted that he was on Klonopin 1 mg three times a day. Since admission, his vital signs have been stable and without significant signs of alcohol withdrawal. Lab findings have been unremarkable. MENTAL STATUS: The patient was lying in bed, he gave fair eye contact. Psychomotor activity was slow. Speech was monotone. He answered questions with brief responses. His thoughts were clear. He did not say a lot. He was not spontaneous or interactive. Though he did give direct responses to questions. His affect was flat. His mood depressed. He was significantly distressed. There were no indications of thought disorder. He was oriented times three and alert. He was cooperative in the interview. ASSESSMENT: This 47 -year-old male was diagnosed with alcohol dependence. He may have underlying mood disorder secondary to his alcohol use disorder. Whether there are other significant mental health issues will require further evaluation. At this point, I would recommend continuing the protocol for alcohol withdrawal. The patient is at risk for developing delirium tremens given the terminal clerk nature and severity of his drinking. I discussed with the patient that there might be benefit for his being on the medicine like Zyprexa that can help reduce physiologic stress response relating to alcohol withdrawal symptoms particularly early withdrawal. We discussed possible treatment for mood disorder. I advised the patient that antidepressants may be important medications for him though generally are of little value the first six to eight weeks of withdrawal from alcohol. I also advised the patient that continued use of benzodiazepines such as Klonopin is not recommended for any terminal clerk use as it simply continues substance dependency to get thru early withdrawal in order to be able to help stabilize withdrawal symptoms and improved mood he needs to be off all habit forming medications and substances for six to eight weeks. I discussed with the patient that the oncology social worker on the medical floor will talk to him about possible referral for outpatient substance use treatment and support. The patient indicated that his intention is to get back to work as soon as possible which he hopes is early next week. He declines to consider any possible placement in an inpatient substance use treatment program. Obviously, the prognosis is quite guarded. I would not start any other medications at this time though over the next few days as he gets through some of the immediate detox issues, we could look at possibly starting the Zyprexa as a potential help for him if he chooses to get into a program to help him stop drinking. If there are any further issues that develop over the weekend , please contact the psychiatric unit and reconsult for the patient. If he is still in the hospital on Monday, I will see him in follow-up. TO
== END 2017-04-08 13:03 | disposition home or self-care (01) | DRG 896 ==
LOC: EC 02:19 → 4MS4W 03:54 → OBSVTOIN 15:53
PROVIDERS: ADMIT Hospitalist; ATTEND Hospitalist
DX: F10.229 Alcohol dependence with intoxication, unspecified (principal); G93.41 Metabolic encephalopathy; F10.239 Alcohol dependence with withdrawal, unspecified; R45.851 Suicidal ideations; K70.10 Alcoholic hepatitis without ascites; F41.9 Anxiety disorder, unspecified; F17.210 Nicotine dependence, cigarettes, uncomplicated; K21.9 Gastro-esophageal reflux disease without esophagitis; K29.20 Alcoholic gastritis without bleeding; F32.9 Major depressive disorder, single episode, unspecified; Z79.899 Other long term (current) drug therapy; Z88.0 Allergy status to penicillin; Y90.8 Blood alcohol level of 240 mg/100 ml or more
CPT/HCPCS: 36415; 80053; 80306; 80320; 82075; 83520; 85025; 85610; 96365; 96372; 96375; 99285

== ENCOUNTER 2017-08-30 16:34 | Inpatient (IN) | payer OTHER ==
[2017-08-30] MEDS ORDERED: LORazepam 2 MG/ML INJ IV STA (17:14)
[2017-08-30] MEDS ORDERED: THIAMINE 100 MG/ML 2 ML VIAL IM STA (17:14)
[2017-08-30] MEDS ORDERED: SODIUM CHLORIDE 0.9% 1,000 ML IV STA (17:14)
[2017-08-30 17:27] LABS: Basophils # (A) 0.1 k/uL (0-0.2); Basophils % (A) 1 %; Eosinophils # (A) 0.1 k/uL (0-0.7); Eosinophils % (A) 1 %; HCT 47.8 % (39.0-53.0); Lymphocytes # (A) 2.9 k/uL (1.0-4.8); Lymphocytes % (A) 32 %; MCHC 33.5 g/dL (31.0-37.0); MCV 89.4 fL (80.0-100.0); Mean Platelet Volume 7.2; Monocytes # (A) 0.4 k/uL (0-1.0); Monocytes % (A) 4 %; Neutrophils # (A) 5.7 k/uL (1.3-7.7); Neutrophils % (A) 61 %; Platelet Count 448 k/uL (150-450); RBC 5.35 m/uL (4.30-5.90); RDW 15.3 % (11.5-15.5); WBC 9.3 k/uL (3.8-10.6)
[2017-08-30 17:39] LABS: ALT 29 U/L (21-72); AST 30 U/L (17-59); Albumin 4.6 g/dL (3.5-5.0); Alkaline Phosphatase 72 U/L (38-126); Anion Gap 16 mmol/L; Blood Urea Nitrogen 9 mg/dL (9-20); Calcium 9.8 mg/dL (8.4-10.2); Carbon Dioxide 24 mmol/L (22-30); Chloride 110 mmol/L (98-107); Glucose 137 mg/dL (74-99); Lipase 251 U/L (23-300); Magnesium 1.9 mg/dL (1.6-2.3); Potassium 3.9 mmol/L (3.5-5.1); Sodium 150 mmol/L (137-145); Total Bilirubin 0.2 mg/dL (0.2-1.3); Total Protein 7.4 g/dL (6.3-8.2)
--- NOTE | 2017-08-30 17:43 | CT ---
EXAMINATION TYPE: CT brain wo con DATE OF EXAM: 08/30/2017 COMPARISON: NONE HISTORY: Patient appears intoxicated. Seizure-like activity. CT DLP: 1144 mGycm. Automated Exposure Control for Dose Reduction was Utilized. TECHNIQUE: CT scan of the head is performed without contrast. FINDINGS: There is no mass effect nor midline shift. Ventricles have normal size. There is no sign of intracranial hemorrhage. The calvarium is intact. CONCLUSION: Normal CT scan of the brain.
--- NOTE | 2017-08-30 17:45 | ED ---
Seizure HPI - General Chief Complaint: Seizure Stated Complaint: Seizure Time Seen by Provider: 08/30/17 16:55 Source: patient Mode of arrival: wheelchair Limitations: no limitations - History of Present Illness Initial Comments: Is a 47-year-old male with a history of alcohol abuse who presents emergency department for suspected seizure. The patient states that he has been drinking about a fifth a day since her spouse. He states that at that time he stopped taking his depression medications and started drinking again. He has been to [place] in the past and was sober for a couple of months however then again started drinking. He states that today he decided he wanted to stop drinking however believes that he had a seizure because she just woke up on the ground. He does not recall a lot of what happened today and is a poor historian. The patient states that he does feel like he drank today however he is unsure how much. He denies any headache right now. No visual changes. States he just feels generally unwell. A little bit of nausea and some shakiness and anxiety. - Related Data Home Medications Medication Instructions Recorded Confirmed [id number] 2 tab PO Q4-6H PRN 08/30/17 08/30/17 [Excedrin] Escitalopram [Lexapro] 10 mg PO DAILY 08/30/17 08/30/17 Allergies Allergy/AdvReac Type Severity Reaction Status Date / Time Penicillins Allergy Unknown Verified 08/30/17 16:40 Childhood Review of Systems ROS Statement: Those systems with pertinent positive or pertinent negative responses have been documented in the HPI. ROS Other: All systems not noted in ROS Statement are negative. Past Medical History Past Medical History: GERD/Reflux Additional Past Medical History / Comment(s): ETOH abuse, low back pain History of Any Multi-Drug Resistant Organisms: None Reported Past Surgical History: Orthopedic Surgery Additional Past Surgical History / Comment(s): 2015 surgery for fractured penis. Pt. states he broke both of his arms and had surgery; states back in 1999 -something. States he lacerated his liver. States he fractured all of his ribs back in 2011. Past Anesthesia/Blood Transfusion Reactions: No Reported Reaction Past Psychological History: Anxiety, Depression Smoking Status: Current every day smoker Past Alcohol Use History: Abuse, Heavy Past Drug Use History: Marijuana - Past Family History Father Family Medical History: Cancer Additional Family Medical History / Comment(s): Brain CA and is . Mother Family Medical History: CVA/TIA Additional Family Medical History / Comment(s): Mother is living. General Exam - General Exam Comments Initial Comments: Constitutional: Awake alert patient is agitated and appears uncomfortable Head: Normocephalic atraumatic Eyes: no conjunctival injection No scleral icterus EOMI, pupils are 4 mm reactive bilaterally Neck: No JVD Supple Heart: Regular rate rhythm normal S1-S2 no murmurs Lungs: Clear to auscultation bilaterally No wheezing No rales Abdomen: Soft nondistended nontender Extremities: Non edematous DP pulses intact Radial pulses intact Neuro: A&Ox3 No focal neurologic deficits, the patient is tremulous Psych: Appropriate mood and affect Limitations: no limitations Course Vital Signs 08/30/17 16:40 Temperature 97.3 F L Pulse Rate 96 Respiratory 18 Rate Blood Pressure 128/84 O2 Sat by Pulse 100 Oximetry Medical Decision Making - Medical Decision Making Is a 47-year-old male who presents emergency report for alcohol withdrawal seizure. Patient will call us [phone]. He is also found to be hypernatremic at 150. The patient was started on lactated Ringer's per Dr. Cuellar's team. He is going to be admitted for a call the trauma an impending DTs. Admission orders placed. - Lab Data Result diagrams: 08/30/17 17:05 08/30/17 17:05 Lab Results 08/30/17 08/30/17 Range/Units 17:05 17:05 WBC 9.3 (3.8-10.6) k/uL RBC 5.35 (4.30-5.90) m/uL Hgb 16.0 (13.0-17.5) gm/dL Hct 47.8 (39.0-53.0) % MCV 89.4 (80.0-100.0) fL MCH 30.0 (25.0-35.0) pg MCHC 33.5 (31.0-37.0) g/dL RDW 15.3 (11.5-15.5) % Plt Count 448 (150-450) k/uL Neutrophils % 61 % Lymphocytes % 32 % Monocytes % 4 % Eosinophils % 1 % Basophils % 1 % Neutrophils # 5.7 (1.3-7.7) k/uL Lymphocytes # 2.9 (1.0-4.8) k/uL Monocytes # 0.4 (0-1.0) k/uL Eosinophils # 0.1 (0-0.7) k/uL Basophils # 0.1 (0-0.2) k/uL Sodium 150 H (137-145) mmol/L Potassium 3.9 (3.5-5.1) mmol/L Chloride 110 H (98-107) mmol/L Carbon Dioxide 24 (22-30) mmol/L Anion Gap 16 mmol/L BUN 9 (9-20) mg/dL Creatinine 0.89 (0.66-1.25) mg/dL Est GFR (MDRD) Af Amer >60 (>60 ml/min/1.73 sqM) Est GFR (MDRD) Non-Af >60 (>60 ml/min/1.73 sqM) Glucose 137 H (74-99) mg/dL Calcium 9.8 (8.4-10.2) mg/dL Magnesium 1.9 (1.6-2.3) mg/dL Total Bilirubin 0.2 (0.2-1.3) mg/dL AST 30 (17-59) U/L ALT 29 (21-72) U/L Alkaline Phosphatase 72 (38-126) U/L Total Protein 7.4 (6.3-8.2) g/dL Albumin 4.6 (3.5-5.0) g/dL Lipase 251 (23-300) U/L Serum Alcohol mg/dL Acetone, Qual Negative (Negative) Disposition Clinical Impression: Alcohol withdrawal, Hypernatremia Disposition: ADMITTED IP TO THIS HOSP Condition: Stable
[2017-08-30] MEDS ORDERED: LACTATED RINGERS 1,000 ML IV ONE (18:07)
[2017-08-30] MEDS ORDERED: NALOXONE 0.4 MG/ML 1 ML VIAL IV PRN (18:11)
[2017-08-30] MEDS ORDERED: LORazepam 2 MG/ML INJ IV PRN ×2 (18:11)
[2017-08-30] MEDS: THIAMINE 100 MG TAB PO SCH (18:18)
[2017-08-30 19:45] VITALS: BMI 24.4
[2017-08-30] MEDS ORDERED: NICOTINE 21MG/24HR PATCH TRANSDERM STA (20:04)
[2017-08-30] MEDS ORDERED: METOPROLOL TARTRATE 12.5 MG TAB PO SCH (20:30)
[2017-08-30] MEDS ORDERED: NICOTINE 21MG/24HR PATCH TRANSDERM SCH (20:30)
[2017-08-30] MEDS ORDERED: DIAZEPAM 5 MG TAB PO SCH (22:00)
[2017-08-30] MEDS: DIAZEPAM 5 MG TAB PO SCH (22:25)
[2017-08-30] MEDS: METOPROLOL TARTRATE 12.5 MG TAB PO SCH (22:25)
[2017-08-30] MEDS: SODIUM CHLORIDE 0.9% 1,000 ML IV SCH (22:26)
--- NOTE | 2017-08-30 22:57 | HP ---
HISTORY AND PHYSICAL DATE OF ADMISSION: 08/30/2017 PRESENTING COMPLAINT: Possible seizure, alcohol related. HISTORY OF PRESENTING COMPLAINT: This is a 47-year-old patient of Dr. Rider, long-standing history of alcoholism. The patient continues to drink about a fifth of vodka a day, continues to smoke a pack a day. The patient is at home and he is not sure, but it looks like he may have had a seizure. He then called his girlfriend and patient was brought in here. The patient is somewhat delirious from the alcohol, not able to give a more detailed history, rather restless. He says he continues to drink. REVIEW OF SYSTEMS: CONSTITUTIONAL: Tired. HEENT: None. RESPIRATORY: None. CARDIOVASCULAR: None. GASTROINTESTINAL: Heartburn. GENITOURINARY: None. MUSCULOSKELETAL: None. DERMATOLOGICAL: None. HEMATOLOGIC: None. LYMPHATIC: None. PSYCHIATRY: Anxious, depressed. NEUROLOGICAL: Possible seizure. PAST MEDICAL HISTORY: Chronic alcohol dependence, alcoholic hepatitis, chronic nicotine dependence, GERD. PAST SURGICAL HISTORY: Surgery for fractured penis, broke both of his arms and had surgery, lacerated his liver, also had fracture of all of his ribs. 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 The patient has been drinking at least a pint of vodka a day, does some marijuana. Family history of brain cancer. HOME MEDICATIONS: 1. Lexapro 10 mg a day. 2. Excedrin 2 tablets q.4-6 p.r.n. ALLERGIES: PENICILLIN. EXAMINATION: Temperature 97.3, pulse 96, respirations 18, blood pressure 120/84, pulse ox 100% on room air. The patient is average build, BMI 24.4, lying in bed, rather restless, anxious-appearing. EYES: Pupils equal. Conjunctivae normal. HEENT: Oral cavity normal. NECK: JVD not raised. Mass not palpable. RESPIRATORY: Effort normal. LUNGS: Slightly decreased breath sounds. CARDIOVASCULAR: First and second sounds normal. No edema. ABDOMEN: Soft, nontender. Liver and spleen not palpable. LYMPHATIC: No lymph node palpable. PSYCHIATRY: Alert and oriented x3. Patient is rather restless. NEUROLOGICAL: Moving all 4 limbs. No facial asymmetry. INVESTIGATION: White count 9.3, hemoglobin 16. Sodium 150, potassium 3.9, BUN and creatinine are normal. Alcohol results not noted from the ER. ASSESSMENT: 1. Possible alcohol-related seizure. 2. Chronic alcohol dependence. 3. Acute alcohol withdrawal with element of delirium tremens. 4. Hypernatremia, likely free water deficit. 5. Chronic nicotine dependence. Patient is a cigarette smoker. PLAN: Patient will be put on lactated Ringer's 100 cc now with seizure precautions, given a nicotine patch. Will start the patient on Valium 10 mg 3 times a day and Lopressor 12.5 three times a day for adrenergic drive control. Will keep a close eye on the patient. MMODL / IJN: [id number] /
[2017-08-31] MEDS: LORazepam 2 MG/ML INJ IV PRN ×2 (05:50→08:18)
[2017-08-31] MEDS: ACETAMINOPHEN TAB 325 MG TAB PO PRN ×2 (05:50→11:04)
[2017-08-31] MEDS: SODIUM CHLORIDE 0.9% 1,000 ML IV SCH ×3 (05:52→21:41)
[2017-08-31] MEDS ORDERED: ONDANSETRON 4 MG/2 ML VIAL IVP PRN (06:02)
[2017-08-31] MEDS: DIAZEPAM 5 MG TAB PO SCH ×4 (08:07→21:40)
[2017-08-31] MEDS: METOPROLOL TARTRATE 12.5 MG TAB PO SCH ×3 (08:08→21:39)
[2017-08-31] MEDS: ENOXAPARIN 40 MG/0.4 ML SYRINGE SQ SCH ×2 (08:08→08:14)
[2017-08-31] MEDS: ESCITALOPRAM 10 MG TAB PO SCH (08:08)
[2017-08-31] MEDS: NICOTINE 21MG/24HR PATCH TRANSDERM SCH (08:09)
[2017-08-31] MEDS: THIAMINE 100 MG TAB PO SCH ×2 (11:05→17:12)
[2017-08-31 14:52] LABS: Anion Gap 9 mmol/L; Blood Urea Nitrogen 14 mg/dL (9-20); Calcium 9.7 mg/dL (8.4-10.2); Carbon Dioxide 29 mmol/L (22-30); Chloride 103 mmol/L (98-107); Glucose 96 mg/dL (74-99); Potassium 4.1 mmol/L (3.5-5.1); Sodium 141 mmol/L (137-145)
--- NOTE | 2017-08-31 19:53 | XR ---
EXAMINATION TYPE: XR lumbosacral spine min 4V DATE OF EXAM: 08/31/2017 COMPARISON: NONE HISTORY: Back pain TECHNIQUE: 5 views FINDINGS: Vertebra have normal alignment. There is slight narrowing with spurring at L4-5 and L5-S1. There is no compression fracture. Posterior elements are intact. Sacroiliac joints appear intact. IMPRESSION: Mild spondylosis in the lower lumbar spine. No fracture seen. There is also spurring at T 12-L1.
--- NOTE | 2017-08-31 20:34 | P.PN ---
Progress Note - Text Progress Note Date: 08/31/17 DATE OF SERVICE: 08/31/2017 PRESENTING COMPLAINT: Alcohol withdrawal HISTORY OF PRESENT ILLNESS: 47-year-old male who presents with possible seizure likely alcohol-related. Drinks about a fifth of vodka a day continues to smoke. States he found himself down felt like he had a seizure then he called his girlfriend and was brought for further evaluation and treatment. INTERVAL HISTORY: 08/31/2017 Sitting up at the edge of the bed, somewhat restless. Talking about wanting to get out of here. Vital signs stable, afebrile. Patient maintained on Valium and beta emma for delirium tremens control. Additionally has the CIWA protocol available should he become more acute. Has complaints of low back pain that is chronic in nature. We'll consult orthopedic spine service. Tolerating his diet, ambulatory in the room and gardiner ways and encouraged to be ambulatory. Last BM prior to admission. REVIEW OF SYSTEMS: Done for constitutional ,cardiovascular, GI, pulmonary with relevant findings as above. CURRENT MEDICATIONS Tylenol, Valium, Lovenox, Lexapro, Ativan, Lopressor, nicotine patch, Zofran, vitamin B1 PHYSICAL EXAM VITAL SIGNS: Temperature 97.3, pulse 70, respiratory rate 16, blood pressure 120/80, oxygen saturation 98% on room air. GENERAL APPEARANCE: Sitting up in the edge of the bed, anxious appearing. HENT: Normocephalic, JVD not raised. Mass not palpable. Oral cavity normal, external appearance of ears and nose normal. EYES:Pupils equal. Conjunctiva normal. RESPIRATORY: Respiratory effort normal. Lungs diminished to auscultation. CARDIOVASCULAR: First and second sounds normal. No edema. ABDOMEN: Soft. Liver and spleen not palpable. No tenderness. No mass palpable. PSYCHIATRY: Alert and oriented x3. Mood and affect anxious and mildly fidgety. INVESTIGATIONS: BMP unremarkable ASSESSMENT: -Possible alcohol related seizure. -Chronic alcohol dependence. -Acute alcohol withdrawal with elements of delirium tremens. -Hypernatremia, likely free water deficit, resolved area -Chronic nicotine dependence, patient is a current cigarette smoke -Chronic low back pain PLAN: Continue Valium 10 mg 4 times a day and Lopressor 3 times a day. Consult orthospine for chronic back pain. Plan of care discussed with the patient at the bedside he is in agreement. We will follow closely. G[employer] APPLIANCE SERVICER statement: Patient was seen and examined by nurse practitioner Nyasia Zaidi and all elements of the case discussed with attending Dr. Cuellar
--- NOTE | 2017-08-31 23:05 | PN ---
PROGRESS NOTE DATE OF SERVICE: 08/31/2017 ATTENDING NOTE: This patient was seen and examined by me. I discussed the case with the nurse practitioner Rona Dyan. This is a patient who presented with acute alcohol intake on chronic with DTs. The patient was rather restless when I saw him this morning, already on Valium though, better than last night. The patient has chronic low back pain and is concerned about that. Alcohol is affecting all his lifestyle and his family. On examination, temperature 97.3, pulse 70, respiration 20, blood pressure 128/80, pulse ox 98% on room air. Somewhat restless but much improved from yesterday. LUNGS: Slightly decreased breath sounds. CARDIOVASCULAR: First and second sounds normal. ASSESSMENT: 1. Acute alcohol withdrawal. 2. Chronic alcohol dependence. 3. Chronic low back pain. I did order an x-ray that showed slight narrowing with spurring at L4-L5 and L5-S1. Will also get an opinion from Dr. Galicia. In the meantime, I did increase the Valium to 10 mg q.6. The patient is already on Lopressor. I encouraged him to ambulate. Total time spent today was about 35 to 40 minutes, including 25 to 30 minutes of counseling for smoking, alcohol, lifestyle changes, exercise. MMODL / IJN: [id number] /
[2017-09-01] MEDS: SODIUM CHLORIDE 0.9% 1,000 ML IV SCH ×2 (06:21→14:42)
[2017-09-01] MEDS: ACETAMINOPHEN TAB 325 MG TAB PO PRN ×2 (06:48→10:41)
[2017-09-01] MEDS: LORazepam 2 MG/ML INJ IV PRN (06:49)
[2017-09-01 08:23] VITALS: BP 131/92; PULSE 66; RESP 16; TEMP 97.8
[2017-09-01] MEDS: ENOXAPARIN 40 MG/0.4 ML SYRINGE SQ SCH (08:36)
[2017-09-01] MEDS: ESCITALOPRAM 10 MG TAB PO SCH (08:36)
[2017-09-01] MEDS: METOPROLOL TARTRATE 12.5 MG TAB PO SCH (08:39)
[2017-09-01] MEDS: NICOTINE 21MG/24HR PATCH TRANSDERM SCH (08:39)
[2017-09-01] MEDS: DIAZEPAM 5 MG TAB PO SCH ×2 (08:39→11:27)
--- NOTE | 2017-09-01 08:57 | P.CNOR ---
<Jarad Liz - Last Filed: 09/01/17 08:48> History of Present Illness - [facility] Consult date: 09/01/17 Requesting physician: Mark Cuellar Consult reason: low back pain History of present illness: Patient is a pleasant 47-year-old male who is seen and examined at the bedside after consultation was placed for further evaluation for chronic low back pain. Patient was originally admitted on the 08/30/2017 after presenting to the emergency department for alcohol-related suspected seizure. Patient has a history of alcohol abuse. He states he has been at [facility] for rehabilitation previously. His last stay at [facility] was a few months ago. He states he had remained dry and avoided drinking until the last week. 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 He has been drinking with them and states he has also been drinking due to his ongoing low back pain. Denies specific workup in regards to his lumbar spine. He states he did experience left lower extremity sciatica a few years ago that was debilitating at that time. He is not currently experiencing these symptoms. He states his most significant symptom his ongoing low back pain that radiates towards the right lateral hip. He denies any specific falls, accidents, or injuries. He states he is not currently experiencing any withdrawal symptoms. He states he is ready for discharge home and no longer wishes to be in the hospital. He is restless at the bedside and has difficulty sitting still. X-rays lumbar spine were taken during this admission. Past Medical History Past Medical History: GERD/Reflux Additional Past Medical History / Comment(s): ETOH abuse, low back pain History of Any Multi-Drug Resistant Organisms: None Reported Past Surgical History: Orthopedic Surgery Additional Past Surgical History / Comment(s): 2014 surgery for fractured penis. Pt. states he broke both of his arms and had surgery; states back in 1999 -. States he lacerated his liver. States he fractured all of his ribs back in 2011. Past Anesthesia/Blood Transfusion Reactions: No Reported Reaction Past Psychological History: Anxiety, Depression Additional Psychological History / Comment(s): Pt resides with his significant other. 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 Smoking Status: Current every day smoker Past Alcohol Use History: Abuse, Heavy Additional Past Alcohol Use History / Comment(s): Pt started smoking in 1984 and is about a 1 ppd smoker. He has been drinking more for quite a while and is up to at least 1/5 of vodka a day. Past Drug Use History: Marijuana - Past Family History Father Family Medical History: Cancer Additional Family Medical History / Comment(s): Brain CA and is . Mother Family Medical History: CVA/TIA Additional Family Medical History / Comment(s): Mother is living. Medications and Allergies Home Medications Medication Instructions Recorded Confirmed Type Escitalopram [Lexapro] 10 mg PO DAILY 08/30/17 08/30/17 History Acetaminophen Tab [Tylenol] 650 mg PO Q6HR PRN tab 09/01/17 Rx Diazepam [Valium] 5 mg PO DIRECTED #12 tab 09/01/17 Rx Disulfiram 250 mg PO DIRECTED #30 tablet 09/01/17 Rx Metoprolol Tartrate [Lopressor] 12.5 mg PO TID #15 tab 09/01/17 Rx Naproxen [Naprosyn] 500 mg PO Q12HR #14 tab 09/01/17 Rx Nicotine 21Mg/24Hr Patch [Habitrol] 1 patch TRANSDERM DAILY #42 patch 09/01/17 Rx Thiamine [Vitamin B-1] 100 mg PO BID@1200,1700 tab 09/01/17 Rx Allergies Allergy/AdvReac Type Severity Reaction Status Date / Time Penicillins Allergy Unknown Verified 08/30/17 16:40 Childhood Physical Examination Physical exam: Patient is awake, alert, and oriented 3; patient appears restless and agitated has difficulty sitting still Vital signs stable Good chest excursion with deep inspiration and expiration Examination of lumbar spine reveals skin is intact with no abrasions, lacerations, or bruises; no erythema, purulence or signs of infection No significant pain with palpation of the lumbosacral spine along the midline Dorsiflexion, plantarflexion, and extensor hallucis longus positive sustained bilaterally Lower extremity strength 5/5 bilaterally Patellar reflex 1+ bilaterally and Achilles reflexes 0+ bilaterally No lower extremity hyperreflexia bilaterally Straight leg test negative bilateral lower extremities No signs or symptoms of DVT; no calf pain No pain with internal and external rotation of the hips bilaterally Neurovascularly intact Results Pertinent Studies: X-rays lumbar spine: L4-5 and L5-S1 degenerative disc disease with some anterior osteophytic spurring; T12-L1 significant disc disease; overall alignment appears to be adequately maintained; no evidence of vertebral body compression fracture - Labs Labs: H & H 08/30/17 Range/Units 17:05 Hgb 16.0 (13.0-17.5) gm/dL Hct 47.8 (39.0-53.0) % Result Diagrams: 08/30/17 17:05 08/31/17 13:57 Assessment and Plan Assessment: Assessment: Chronic low back pain L4-5 and L5-S1 degenerative disc disease History of alcohol abuse (1) Chronic low back pain Status: Acute Code(s): M54.5 - LOW BACK PAIN; G89.29 - OTHER CHRONIC PAIN SNOMED Code(s): 782646802 (2) Lumbar degenerative disc disease Status: Acute Code(s): M51.36 - OTHER INTERVERTEBRAL DISC DEGENERATION, LUMBAR REGION SNOMED Code(s): 01801355 (3) Disc degeneration, lumbosacral Status: Acute Code(s): M51.37 - OTHER INTERVERTEBRAL DISC DEGENERATION, LUMBOSACRAL REGION SNOMED Code(s): 95721274 (4) Alcohol abuse Status: Acute Code(s): F10.10 - ALCOHOL ABUSE, UNCOMPLICATED SNOMED Code(s) : 50395839 Plan: Plan: 1. After reviewing of imaging, physical examination of the patient, and further discussion with the patient, we will currently planned to continue with conservative treatment. He does have evidence of some degenerative changes at his lumbosacral spine without evidence of acute change. He is not currently experiencing any significant lower extremity radiculopathy or weakness. He continues to experience ongoing low back pain that has been chronic for him without significant change recently. He was admitted for further evaluation and treatment for possible alcohol-related seizure. At this time, we will not currently plan for further imaging or evaluation here in the hospital. Patient is eager for discharge and is hopeful for discharge home today. We will plan to follow him up in the outpatient setting for further evaluation and treatment. We will plan to have him follow-up in approximately 2 weeks at [facility] for further evaluation. Patient may follow- up with Jarad Liz or Dr. Yonathan Galicia. We will plan to obtain further imaging at that time. We will refrain from prescribing narcotic pain medications during his admittance and discharge. We will leave pain control up to medicine's recommendations. Patient may continue to participate in activities to tolerance. 2. Medicine to continue following the patient 3. From an orthopedic spine standpoint, patient is clear for discharge once cleared by medicine 4. Following discharge, patient may follow-up with Jarad Liz PA-C or Dr. Yonathan Galicia at [facility] in approximately 2 weeks for further evaluation 5. Patient will be discussed in detail with Dr. Yonathan Galicia Time with Patient: Less than 30 <Leobardo Galicia - Last Filed: 09/03/17 09:46> Physical Examination Osteopathic Statement: *. No significant issues noted on an osteopathic structural exam other than those noted in the History and Physical/Consult. Results - Labs Labs: H & H 08/30/17 Range/Units 17:05 Hgb 16.0 (13.0-17.5) gm/dL Hct 47.8 (39.0-53.0) % Result Diagrams: 08/30/17 17:05 08/31/17 13:57 Assessment and Plan Plan: I was able to review the case and review the imaging and discussed the case with the position contract assistant. I agree with the above and we will continue with conservative care at this point. We do not plan surgical intervention at this point. If patient continues to have significant symptoms we can see him back in as outpatient and possible 2 weeks at our office
[2017-09-01] MEDS: THIAMINE 100 MG TAB PO SCH (11:06)
--- NOTE | 2017-09-01 15:24 | DS ---
DISCHARGE SUMMARY DATE OF ADMISSION: 08/20/2017 DATE OF DISCHARGE: 09/01/2017. FINAL DIAGNOSES: 1. Acute delirium tremens from alcohol intake. 2. chronic alcohol dependence. 3. Hyponatremia, likely free water deficit. 4. Chronic nicotine dependence, patient is a cigarette smoker. 5. Chronic lumbar pain, possibly lumbago with mild spondylosis of the lumbar spine. HOSPITAL COURSE: This patient drinks quite a bit of vodka, presented with acute DTs. Initially, I thought this could have been seizures, but the patient did have a classic delirium tremens. Responded well to Valium, beta blockers. Patient also got some chronic low back pain, lumbar spine did show some mild evidence of spondylosis seen by Dr. Yonathan Galicia who will see the patient as an outpatient. Again today, patient was counseled against smoking and alcohol. On exam, lungs are clear. CARDIOVASCULAR: First and second sounds are normal. Patient is up and about, tolerating a diet. DISCHARGE MEDICATIONS: 1. Lexapro 10 mg p.o. daily. 2. Valium 5 mg, taper as directed. 3. Disulfiram 500 mg p.o. daily for 7 days, then 250 mg a day. 4. Lopressor 12.5 p.o. t.i.d. for 15 tablets. 5. Naproxen 500 mg p.o. q.12 fourteen tablets. 6. Nicotine patch. 7. Thiamine 100 mg p.o. b.i.d. Patient may return to work next . Follow up with Dr. Rider in 3 days. Follow with Jarad Liz/Dr. Galicia in 2 weeks. Smoking cessation counseling at least more than 3 minutes was spent in addition to the discharge summary. MMODL / IJN: [id number] /
== END 2017-09-01 15:24 | disposition home or self-care (01) | DRG 897 ==
LOC: EC 16:34 → 4MS4W 18:12
PROVIDERS: ADMIT Hospitalist; ATTEND Hospitalist
DX: F10.231 Alcohol dependence with withdrawal delirium (principal); E87.0 Hyperosmolality and hypernatremia; K70.10 Alcoholic hepatitis without ascites; E87.1 Hypo-osmolality and hyponatremia; G40.509 Epileptic seizures related to external causes, not intractable, without status epilepticus; F17.210 Nicotine dependence, cigarettes, uncomplicated; K21.9 Gastro-esophageal reflux disease without esophagitis; G89.29 Other chronic pain; M47.9 Spondylosis, unspecified; M51.37 Other intervertebral disc degeneration, lumbosacral region; Z71.6 Tobacco abuse counseling; Z71.41 Alcohol abuse counseling and surveillance of alcoholic; Z80.8 Family history of malignant neoplasm of other organs or systems; Z82.3 Family history of stroke; Z79.899 Other long term (current) drug therapy; Z88.0 Allergy status to penicillin; Z79.82 Long term (current) use of aspirin
CPT/HCPCS: 36415; 70450; 72110; 80048; 80053; 80320; 82009; 83690; 83735; 85025; 96361; 96372; 96374; 99285

== ENCOUNTER 2018-12-06 20:29 | Emergency (ER) | payer OTHER ==
[2018-12-06 20:58] VITALS: BP 154/122; PULSE 99; RESP 20; TEMP 97.9
--- NOTE | 2018-12-06 22:23 | ED ---
Fall HPI - General Chief Complaint: Fall Stated Complaint: Fall, Facial Injury Time Seen by Provider: 12/06/18 21:02 Source: patient, EMS Mode of arrival: EMS - History of Present Illness Initial Comments: 48-year-old male presents today for follow-up. Patient states he tripped over a manhole. Patient fell for his face. Patient states he did lose consciousness. Patient states he has a headache. Patient denies neck pain. Patient wants C collar removed. Patient states he is bleeding a lot which was his main concern and presented for evaluation. Patient denies diplopia or visual changes vision loss numbness tingling loss sensation muscle weakness of the upper or lower extremity. Remaining review of systems negative, patient denies any recent fever, chills, shortness of breath, chest pain, back pain, abdominal pain, nausea or vomiting, dysuria or hematuria, constipation or diarrhea, or any other complaints. Upon arrival pt trying to leave, I discussed importance of imaging studies. Pt agreed to treatment. - Related Data Home Medications Medication Instructions Recorded Confirmed No Known Home Medications 12/06/18 12/06/18 Allergies Allergy/AdvReac Type Severity Reaction Status Date / Time Penicillins Allergy Rash/Hives Verified 12/06/18 21:20 Review of Systems ROS Statement: Those systems with pertinent positive or pertinent negative responses have been documented in the HPI. ROS Other: All systems not noted in ROS Statement are negative. Past Medical History Past Medical History: GERD/Reflux Additional Past Medical History / Comment(s): ETOH abuse, low back pain History of Any Multi-Drug Resistant Organisms: None Reported Past Surgical History: Orthopedic Surgery Additional Past Surgical History / Comment(s): 2014 surgery for fractured penis. Pt. states he broke both of his arms and had surgery; states back in 1999- something. States he lacerated his liver. States he fractured all of his ribs back in 2011. Past Anesthesia/Blood Transfusion Reactions: No Reported Reaction Past Psychological History: Anxiety, Depression Smoking Status: Current every day smoker Past Alcohol Use History: Abuse, Heavy Past Drug Use History: Marijuana - Past Family History Father Family Medical History: Cancer Additional Family Medical History / Comment(s): Brain CA and is . Mother Family Medical History: CVA/TIA Additional Family Medical History / Comment(s): Mother is living. General Exam - General Exam Comments Initial Comments: General: The patient is awake and alert, in no distress, and does not appear acutely ill. Eye: Pupils are equal, round and reactive to light, extra-ocular movements are intact. No nystagmus. There is normal conjunctiva bilaterally. No signs of icterus. Ears, nose, mouth and throat: There are moist mucous membranes and no oral lesions. Neck: The neck is supple, there is no tenderness or JVD. Soft tissue swelling over the right zygomatic arch. Orbits appear intact. No peeking of pupils. No raccoon or Lester sign. No pain extraocular movements. C-collar in place. Cardiovascular: There is a regular rate and rhythm. No murmur, rub or gallop is appreciated. Respiratory: Lungs are clear to auscultation, respirations are non-labored, breath sounds are equal. No wheezes, stridor, rales, or rhonchi Gastrointestinal: Soft, non-distended, non-tender abdomen without masses or organomegaly noted. There is no rebound or guarding present. No CVA tenderness. Bowel sounds are unremarkable. Musculoskeletal: Normal ROM, no tenderness. Strength 5/5. Sensation intact. Pulses equal bilaterally 2+. Neurological: A&O x 3. CN II-XII intact, There are no obvious motor or sensory deficits. Coordination appears grossly intact. Speech is normal. Skin: Skin is warm and dry and no rashes or lesions are noted. Psychiatric: Cooperative, appropriate mood & affect, normal judgment. Limitations: no limitations Course Vital Signs 12/06/18 20:52 Temperature 97.9 F Pulse Rate 99 Respiratory 20 Rate Blood Pressure 154/122 O2 Sat by Pulse 95 Oximetry Medical Decision Making - Medical Decision Making Patient left prior to imaging studies. Patient states he did not need to be evaluated and left. Left AGAINST MEDICAL ADVICE without completion of care. Disposition Clinical Impression: Fall Disposition: Left Against Medical Advice Condition: Undetermined Is patient prescribed a controlled substance at d/c from ED?: No Referrals: Parmjit Rider MD [Primary Care Provider] - 1-2 days Time of Disposition: 04:50
== END 2018-12-06 22:49 | disposition left against medical advice (07) ==
LOC: EC 20:29
DX: R51 Headache (principal); R22.0 Localized swelling, mass and lump, head; F17.200 Nicotine dependence, unspecified, uncomplicated; Z88.0 Allergy status to penicillin; Z53.29 Procedure and treatment not carried out because of patient's decision for other reasons; W01.198A Fall on same level from slipping, tripping and stumbling with subsequent striking against other object, initial encounter; Y92.410 Unspecified street and highway as the place of occurrence of the external cause
CPT/HCPCS: 99283

== ENCOUNTER 2018-12-21 20:36 | Inpatient (IN) | payer OTHER ==
[2018-12-21] MEDS: SODIUM CHLORIDE 0.9% 500 ML 500 ML IV STA (21:32)
[2018-12-21] MEDS ORDERED: THIAMINE 100 MG/ML 2 ML VIAL IM STA (21:47)
[2018-12-21] MEDS ORDERED: LORazepam 2 MG/ML INJ IV PRN ×2 (21:47)
[2018-12-21 21:54] LABS: Basophils # (A) 0.1 k/uL (0-0.2); Basophils % (A) 1 %; Eosinophils # (A) 0.1 k/uL (0-0.7); Eosinophils % (A) 2 %; HCT 49.4 % (39.0-53.0); Lymphocytes # (A) 1.6 k/uL (1.0-4.8); Lymphocytes % (A) 25 %; MCH 31.2 pg (25.0-35.0); MCHC 32.3 g/dL (31.0-37.0); MCV 96.7 fL (80.0-100.0); Mean Platelet Volume 8.1; Monocytes # (A) 0.6 k/uL (0-1.0); Monocytes % (A) 9 %; Neutrophils # (A) 3.7 k/uL (1.3-7.7); Neutrophils % (A) 59 %; Platelet Count 218 k/uL (150-450); RBC 5.12 m/uL (4.30-5.90); RDW 14.9 % (11.5-15.5); WBC 6.3 k/uL (3.8-10.6)
[2018-12-21] MEDS: THIAMINE 100 MG TAB PO SCH (22:09)
[2018-12-21 22:10] LABS: ALT 115 U/L (21-72); AST 132 U/L (17-59); Albumin 4.9 g/dL (3.5-5.0); Alkaline Phosphatase 59 U/L (38-126); Anion Gap 13 mmol/L; Blood Urea Nitrogen 7 mg/dL (9-20); Calcium 9.9 mg/dL (8.4-10.2); Carbon Dioxide 26 mmol/L (22-30); Chloride 107 mmol/L (98-107); Glucose 110 mg/dL (74-99); Lipase 175 U/L (23-300); Potassium 4.5 mmol/L (3.5-5.1); Sodium 146 mmol/L (137-145); Total Bilirubin 0.5 mg/dL (0.2-1.3); Total Protein 7.7 g/dL (6.3-8.2)
[2018-12-21 22:26] LABS: Alcohol 474 mg/dL
--- NOTE | 2018-12-21 22:54 | CT ---
EXAM: CT Head Without Intravenous Contrast CLINICAL HISTORY: Intoxication TECHNIQUE: Axial computed tomography images of the head/brain without intravenous contrast. CTDI is 56.87 mGy and DLP is 1366.4 mGy-cm. This CT exam was performed using one or more of the following dose reduction techniques: automated exposure control, adjustment of the mA and/or kV according to patient size, and/or use of iterative reconstruction technique. Coronal and sagittal reconstructions are performed COMPARISON: 08/30/17 FINDINGS: Brain: Unremarkable. No hemorrhage. No significant white matter disease. No edema. Ventricles: Unremarkable. No ventriculomegaly. Bones/joints: Unremarkable. No acute fracture. Soft tissues: Unremarkable. Sinuses: Small polyp versus retention cyst in lateral aspect of right maxillary sinus. Thin layer of mucosal thickening in left maxillary sinus. Mastoid air cells: Unremarkable as visualized. No mastoid effusion. IMPRESSION: No acute findings. Minimal sinus disease EXAM: CT Cervical Spine Without Intravenous Contrast CLINICAL HISTORY: Intoxication TECHNIQUE: Axial computed tomography images of the cervical spine without intravenous contrast. CTDI is 56.87 mGy and DLP is 1366.4 mGy-cm. This CT exam was performed using one or more of the following dose reduction techniques: automated exposure control, adjustment of the mA and/or kV according to patient size, and/or use of iterative reconstruction technique. Coronal and sagittal reconstructions are performed COMPARISON: No relevant prior studies available. FINDINGS: Vertebrae: Unremarkable. No acute fracture. Discs/spinal canal/neural foramina: Mild to moderate degenerative disc disease, worse at C5-6. No spinal canal stenosis. Soft tissues: Unremarkable. IMPRESSION: No fracture or subluxation.
[2018-12-21 23:51] LABS: Appearance,Urine Clear (Clear); Bilirubin,Urine Negative (Negative); Blood,Urine Negative (Negative); Color,Urine Light Yellow; Glucose,Urine (UA) Negative (Negative); Ketones,Urine Negative (Negative); Leukocyte Esterase,Urine Negative (Negative); Nitrite,Urine Negative (Negative); PH, Urine 6.5 (5.0-8.0); Protein,Urine Negative (Negative); Specific Gravity,Urine 1.004 (1.001-1.035); Urobilinogen,Urine <2.0 mg/dL (<2.0)
[2018-12-22 00:01] LABS: Amphetamine Screen,Urine Not Detected (NotDetected); Barbiturate Screen,Urine Not Detected (NotDetected); Benzodiazepines Screen,Urine Not Detected (NotDetected); Cocaine Screen,Urine Not Detected (NotDetected); Methadone Screen, Urine Not Detected (NotDetected); Opiate Screen,Urine Not Detected (NotDetected); Oxycodone Screen, Urine Not Detected (NotDetected); Phencyclidine Screen,Urine Not Detected (NotDetected); Tricyclic Antidepressant,Urine Not Detected (NotDetected); Urn Cannabinoid Scrn Not Detected (NotDetected)
--- NOTE | 2018-12-22 00:32 | ED ---
General Adult HPI - General Source: patient, family, RN notes reviewed, old records reviewed Mode of arrival: wheelchair Limitations: no limitations <Enrrique Stafford - Last Filed: 12/22/18 00:32> <Desirae Bennett - Last Filed: 12/22/18 00:34> - General Chief complaint: Alcohol Stated complaint: Detox Time Seen by Provider: 12/21/18 21:01 - History of Present Illness Initial comments: 48-year-old male patient passed medical history of alcohol abuse presents to ED for alcohol intoxication. Patient reports that he wants to stop drinking. Patient reports he has been drinking heavily today. Patient reports he drinks about 1 L per day. Patient denies any falls or trauma. Patient has a 4 they did have a fall approximately one month ago which she was seen here but declined imaging and left AGAINST MEDICAL ADVICE. Patient denies any other complaints at this time. Patient denies headache chest pain shortness of breath, nausea vomiting or diarrhea. Systemic: Pt denies fatigue, myalgia, fever/chills, rash. Pt denies weakness, night sweats, weight loss. Neuro: Pt denies headache, visual disturbances, syncope or pre-syncope. HEENT: Pt denies ocular discharge or irritation, otalgia, rhinorrhea, phary ngitis or notable lymphadenopathy. Cardiopulmonary: Pt denies chest pain, SOB, heart palpitations, dyspnea on exertion. Abdominal/GI: Pt denies abdominal pain, n/v/d. : Pt denies dysuria, burning w/ urination, frequency/urgency. Denies new onset urinary or bowel incontinence. MSK: Pt denies myalgia, loss of strength or function in extremities. Neuro: Pt denies new onset weakness, paresthesias. (Enrrique Stafford) - Related Data Home Medications Medication Instructions Recorded Confirmed No Known Home Medications 12/06/18 12/21/18 Allergies Allergy/AdvReac Type Severity Reaction Status Date / Time Penicillins Allergy Rash/Hives Verified 12/21/18 21:14 Review of Systems ROS Other: All systems not noted in ROS Statement are negative. <Enrrique Stafford - Last Filed: 12/22/18 00:32> ROS Other: All systems not noted in ROS Statement are negative. <Desirae Bennett - Last Filed: 12/22/18 00:34> ROS Statement: Those systems with pertinent positive or pertinent negative responses have been documented in the HPI. Past Medical History Past Medical History: GERD/Reflux Additional Past Medical History / Comment(s): ETOH abuse, low back pain History of Any Multi-Drug Resistant Organisms: None Reported Past Surgical History: Orthopedic Surgery Additional Past Surgical History / Comment(s): 2014 surgery for fractured penis. Pt. states he broke both of his arms and had surgery; states back in 1999- . States he lacerated his liver. States he fractured all of his ribs back in 2011. Past Anesthesia/Blood Transfusion Reactions: No Reported Reaction Past Psychological History: Anxiety, Depression Smoking Status: Current every day smoker Past Alcohol Use History: Abuse, Heavy Past Drug Use History: Marijuana - Past Family History Father Family Medical History: Cancer Additional Family Medical History / Comment(s): Brain CA and is . Mother Family Medical History: CVA/TIA Additional Family Medical History / Comment(s): Mother is living. <Enrrique Stafford - Last Filed: 12/22/18 00:32> General Exam Limitations: no limitations <Enrrique Stafford - Last Filed: 12/22/18 00:32> - General Exam Comments Initial Comments: Constitutional: NAD, AOX3, Pt has pleasant affect. HEENT: NC/AT, trachea midline, neck supple, no lymphadenopathy. Posterior pharynx non erythematous, without exudates. External ears appear normal, without discharge. Mucous membranes moist. Eyes PERRLA, EOM intact. There is no scleral icterus. No pallor noted. Cardiopulmonary: RRR, no murmurs, rubs or gallops, no JVD noted. Lungs CTAB in anterior and posterior jones. No peripheral edema. Abdominal exam: Abdomen soft and non-distended. Abdomen non-tender to palpation in all 4 quadrants. Bowel sounds active in LLQ. No hepatosplenomegaly. No ecchymosis Neuro: CN II-XII intact. No nuchal rigidity. No focal deficit, no facial droop. MSK: No posterior calf tenderness bilaterally, homans sign negative bilaterally. Posterior tibialis and radial pulse +2 bilaterally. Sensation intact in upper and lower extremities. Full active ROM in upper and lower extremities, 5/5 stregnth. (Enrrique Stafford) Course Vital Signs 12/21/18 12/21/18 12/21/18 20:47 21:01 22:58 Temperature 98.5 F Pulse Rate 77 Respiratory 16 18 19 Rate Blood Pressure 133/95 O2 Sat by Pulse 97 Oximetry 12/21/18 23:42 Temperature Pulse Rate Respiratory 21 Rate Blood Pressure O2 Sat by Pulse Oximetry Medical Decision Making - Lab Data Result diagrams: 12/21/18 21:30 12/21/18 21:30 <Enrrique Stafford - Last Filed: 12/22/18 00:32> - Lab Data Result diagrams: 12/21/18 21:30 12/21/18 21:30 <Desirae Bennett - Last Filed: 12/22/18 00:34> - Medical Decision Making 48-year-old male patient passed medical history of alcohol abuse presents to ED for alcohol intoxication. Patient reports that he wants to stop drinking. Patient reports he has been drinking heavily today. Patient reports he drinks about 1 L per day. Patient denies any falls or trauma. Patient has a 4 they did have a fall approximately one month ago which she was seen here but declined imaging and left AGAINST MEDICAL ADVICE. Patient denies any other complaints at this time. Patient denies headache chest pain shortness of breath, nausea vomiting or diarrhea. Pt VSS, afebrile. Physical exam did not display acute pathology. Laboratory investigations revealed nonpassive CBC. CMP revealed mildly elevated liver enzymes. UA negative, toxicology screen negative. Alcohol 474. He previously supplied did not display any acute process. Patient placed in C reportable. Patient be admitted to hospital for acute intoxication. Case discussed with . (Enrrique Stafford) I personally saw and examined the patient. I reviewed and agree with the mid- level provider findings including all diagnostic interpretations and treatment plans as written unless otherwise stated. , Patient care was discussed with Dr. Monique of the [facility] who agrees with plan for admission for alcohol intoxication, concern for withdrawal as the patient is a daily drinker at high risk of alcohol withdrawal. (Desirae Bennett) - Lab Data Lab Results 12/21/18 12/21/18 12/21/18 Range/Units 21:30 21:30 23:30 WBC 6.3 (3.8-10.6) k/uL RBC 5.12 (4.30-5.90) m/uL Hgb 16.0 (13.0-17.5) gm/dL Hct 49.4 (39.0-53.0) % MCV 96.7 (80.0-100.0) fL MCH 31.2 (25.0-35.0) pg MCHC 32.3 (31.0-37.0) g/dL RDW 14.9 (11.5-15.5) % Plt Count 218 (150-450) k/uL Neutrophils % 59 % Lymphocytes % 25 % Monocytes % 9 % Eosinophils % 2 % Basophils % 1 % Neutrophils # 3.7 (1.3-7.7) k/uL Lymphocytes # 1.6 (1.0-4.8) k/uL Monocytes # 0.6 (0-1.0) k/uL Eosinophils # 0.1 (0-0.7) k/uL Basophils # 0.1 (0-0.2) k/uL Sodium 146 H (137-145) mmol/L Potassium 4.5 (3.5-5.1) mmol/L Chloride 107 (98-107) mmol/L Carbon Dioxide 26 (22-30) mmol/L Anion Gap 13 mmol/L BUN 7 L (9-20) mg/dL Creatinine 0.52 L (0.66-1.25) mg/dL Est GFR (CKD-EPI)AfAm >90 (>60 ml/min/1.73 sqM) Est GFR (CKD-EPI)NonAf >90 (>60 ml/min/1.73 sqM) Glucose 110 H (74-99) mg/dL Calcium 9.9 (8.4-10.2) mg/dL Total Bilirubin 0.5 (0.2-1.3) mg/dL AST 132 H (17-59) U/L ALT 115 H (21-72) U/L Alkaline Phosphatase 59 (38-126) U/L Total Protein 7.7 (6.3-8.2) g/dL Albumin 4.9 (3.5-5.0) g/dL Lipase 175 (23-300) U/L Urine Color Light Yellow Urine Appearance Clear (Clear) Urine pH 6.5 (5.0-8.0) Ur Specific [place] 1.004 (1.001-1.035) Urine Protein Negative (Negative) Urine Glucose (UA) Negative (Negative) Urine Ketones Negative (Negative) Urine Blood Negative (Negative) Urine Nitrite Negative (Negative) Urine Bilirubin Negative (Negative) Urine Urobilinogen <2.0 (<2.0) mg/dL Ur Leukocyte Esterase Negative (Negative) Urine Opiates Screen Not Detected (NotDetected) Ur Oxycodone Screen Not Detected (NotDetected) Urine Methadone Screen Not Detected (NotDetected) Ur Propoxyphene Screen Not Detected (NotDetected) Ur Barbiturates Screen Not Detected (NotDetected) U Tricyclic Antidepress Not Detected (NotDetected) Ur Phencyclidine Scrn Not Detected (NotDetected) Ur Amphetamines Screen Not Detected (NotDetected) U Methamphetamines Scrn Not Detected (NotDetected) U Benzodiazepines Scrn Not Detected (NotDetected) Urine Cocaine Screen Not Detected (NotDetected) U Marijuana (THC) Screen Not Detected (NotDetected) Serum Alcohol 474 H* mg/dL Disposition Is patient prescribed a controlled substance at d/c from ED?: No <Enrrique Stafford - Last Filed: 12/22/18 00:32> <Desirae Bennett P - Last Filed: 12/22/18 00:34> Clinical Impression: Alcohol intoxication Disposition: ADMITTED IP TO THIS HOSP Condition: Serious Instructions (If sedation given, give patient instructions): Alcohol Intoxication (ED) Referrals: Parmjit Rider MD [Primary Care Provider] - 1-2 days
[2018-12-22] MEDS: LORazepam 2 MG/ML INJ IV PRN ×4 (00:55→21:11)
[2018-12-22] MEDS: SODIUM CHLORIDE 0.9% 500 ML 500 ML IV STA (00:59)
[2018-12-22] MEDS: SODIUM CHLORIDE 0.9% 1,000 ML IV SCH ×3 (01:03→21:13)
[2018-12-22 02:09] VITALS: BMI 24.4
--- NOTE | 2018-12-22 06:58 | P.HPIM ---
History of Present Illness H&P Date: 12/22/18 Chief Complaint: Alcohol intoxication 48-year-old male with no significant past medical history except for alcohol abuse Patient presented due to alcohol intoxication severe in nature requesting help to quit alcohol. Patient has been in the cycle multiple times in the past. Reports that 2 weeks ago he sustained a fall on the sidewalk resulted in a bloody face but he didn't seek medical attention at that time. In the ED today CT of the head performed showed no acute injuries. Patient was intoxicated became sober after few hours however his alcohol level was still in the 400 range he denied any other complaints like chest pain or trouble breathing fevers chills coughing abdominal pain or GI bleeding. Urine drug screen was negative, labs showed alcoholic hepatitis Review of Systems Pertinent positives as noted in HPI. All other systems were reviewed and are negative Past Medical History Past Medical History: GERD/Reflux Additional Past Medical History / Comment(s): ETOH abuse, low back pain History of Any Multi-Drug Resistant Organisms: None Reported Past Surgical History: Orthopedic Surgery Additional Past Surgical History / Comment(s): 2014 surgery for fractured penis. Pt. states he broke both of his arms and had surgery; states back in 1999- . States he lacerated his liver. States he fractured all of his ribs back in 2011. Past Anesthesia/Blood Transfusion Reactions: No Reported Reaction Past Psychological History: Anxiety, Depression Smoking Status: Current every day smoker Past Alcohol Use History: Abuse, Heavy Past Drug Use History: Marijuana - Past Family History Father Family Medical History: Cancer Additional Family Medical History / Comment(s): Brain CA and is . Mother Family Medical History: CVA/TIA Additional Family Medical History / Comment(s): Mother is living. Medications and Allergies Home Medications Medication Instructions Recorded Confirmed Type No Known Home Medications 12/06/18 12/21/18 History Allergies Allergy/AdvReac Type Severity Reaction Status Date / Time Penicillins Allergy Rash/Hives Verified 12/21/18 21:14 Physical Exam Vitals: Vital Signs Temp Pulse Resp BP Pulse Ox 12/21/18 23:42 21 12/21/18 22:58 19 12/21/18 21:01 18 12/21/18 20:47 98.5 F 77 16 133/95 97 Intake and Output 12/21/18 12/21/18 12/22/18 14:59 22:59 06:59 Other: Weight 81.647 kg Constitutional: No acute distress, conversant, pleasant Eyes: Anicteric sclerae, moist conjunctiva, no lid-lag Pupils equal round reactive to light ENMT: NC/ bruising over the face Oropharynx clear, no erythema, exudates No active bleeding in the gums Neck: Supple, FROM, no masses, or JVD No carotid bruits No thyromegaly Lungs: Clear to auscultation Clear to percussion Normal respiratory effort, no accessory muscle use Cardiovascular: Heart regular in rate and rhythm, No murmurs, gallops, or rubs No peripheral edema Abdominal: Soft Nontender, no guarding, rebound or rigidity Abdomen moving with respiration Normoactive bowel sounds No hepatomegaly, No splenomegaly No palpable mass No abdominal wall hernia noted Skin: Normal temperature, tone, texture, turgor No induration No subcutaneous nodules No rash, lesions No ulcers Extremities: No digital cyanosis No clubbing Pedal pulses intact and symmetrical Radial pulses intact and symmetrical No calf tenderness Psychiatric: Alert and oriented to person, place and time Appropriate affect fair judgment Neuro Muscles Strength 5/5 in all 4 extremities Sensation to light touch grossly present throughout Cranial nerves II-XII grossly intact No focal sensory deficits Lymphatics: no palpable cervical or supraclavicular , or inguinal lymph nodes Results CBC & Chem 7: 12/21/18 21:30 12/21/18 21:30 Labs: Abnormal Lab Results - Last 24 Hours (Table) 12/21/18 Range/Units 21:30 Sodium 146 H (137-145) mmol/L BUN 7 L (9-20) mg/dL Creatinine 0.52 L (0.66-1.25) mg/dL Glucose 110 H (74-99) mg/dL AST 132 H (17-59) U/L ALT 115 H (21-72) U/L Serum Alcohol 474 H* mg/dL Assessment and Plan Assessment: 48-year-old male with history of alcoholism admitted as an inpatient with anticipated length of stay more than 48 hours due to severe alcohol intoxication patient decided to quit alcohol since he is at risk of withdrawal at this point. Patient sobered up in the ER despite his severely elevated alcohol level Plan: Severe alcohol intoxication Pending alcohol withdrawal syndrome Patient started on IV fluids Benzodiazepines per CIWA scale Withdrawal precautions, seizure precautions, fall precautions Thiamine and folic acid Follow-up labs Patient counseled to quit alcohol Alcoholic hepatitis Continue to follow up levels DVT prophylaxis heparin subcu 3 times a day Surrogate decision-maker: *Patient CODE STATUS: Full code Discussed with: Patient, ER, RN Anticipated discharge: >[address]: Home A total of 60 minutes was spent on the care of this complex patient more than 50% of the time was spent in counseling and care coordination.
[2018-12-22] MEDS: PANTOPRAZOLE 40 MG TABLET PO SCH (08:51)
[2018-12-22] MEDS: THIAMINE 100 MG TAB PO SCH ×2 (08:51→18:25)
[2018-12-22] MEDS: HEPARIN SODIUM,PORCINE 5,000 UNIT/ML 1 ML VIAL SQ SCH ×2 (08:56→18:25)
--- NOTE | 2018-12-22 10:03 | P.PN ---
Subjective Progress Note Date: 12/22/18 Principal diagnosis: Impending withdrawal Patient is a 48-year-old male with a past medical history of GERD, alcohol abuse, and chronic low back pain who presented to the emergency Department severe alcohol intoxication and requesting to help quit drinking. In the ER he underwent an extensive evaluation. He had suffered a fall several weeks ago and did not seek medical attention at that point in time. He underwent a CT head/neck which showed no acute findings the minimal sinus disease. Initial vital signs were within normal limits. Laboratory analysis showed slightly elevated AST at 132 and ALT 115. Alcohol level was 474. He was admitted for impending alcohol withdrawal and detox therapy. He was started on CIWA protocol. Patient seen and examined at bedside. He complains of feeling shaky, slightly nauseous, and having some numbness and tingling. He has undergone detox multiple times. He has never had a seizure or required intubation but has had severe hallucinations. He went to [place] approximately a year ago. He got laid off and then started drinking. He has been drinking approximately 2 pints daily. He denies any chest pain or shortness of breath, he denies any headache. He is now on low back to [place] and he does not believe in AA. But he states he will maintain sobriety after discharge. Objective - Vital Signs Vital signs: Vital Signs Temp 98.2 F 12/22/18 07:00 Pulse 81 12/22/18 07:00 Resp 16 12/22/18 02:00 BP 114/73 12/22/18 07:00 Pulse Ox 94 L 12/22/18 07:00 Intake & Output 12/21/18 12/22/18 12/22/18 18:59 06:59 18:59 Intake Total 200 Balance 200 Weight 81.647 kg Intake: Intake, IV Titration 200 Amount Sodium Chloride 0.9% 1, 200 000 ml @ 100 mls/hr IV . Q10H JOZEF Rx#:[id number] Other: Voiding Method Urinal - Exam General: non toxic, no distress, appears at stated age, disheveled Derm: warm, dry Head: atraumatic, normocephalic, symmetric Eyes: EOMI, no lid lag, anicteric sclera Mouth: no lip lesion, mucus membranes moist Cardiovascular: S1S2 reg, no murmur, positive posterior tibial pulse bilateral, Lungs: CTA bilateral, no rhonchi, no rales , no accessory muscle use Abdominal: soft, nontender to palpation, no guarding, no appreciable organomegaly Ext: no gross muscle atrophy, no edema, no contractures Neuro: CN II-XI grossly intact, no focal neuro deficits, tremors bilaterally Psych: Alert, oriented, appropriate affect - Labs CBC & Chem 7: 12/21/18 21:30 12/21/18 21:30 Labs: Abnormal Lab Results - Last 24 Hours (Table) 12/21/18 Range/Units 21:30 Sodium 146 H (137-145) mmol/L BUN 7 L (9-20) mg/dL Creatinine 0.52 L (0.66-1.25) mg/dL Glucose 110 H (74-99) mg/dL AST 132 H (17-59) U/L ALT 115 H (21-72) U/L Serum Alcohol 474 H* mg/dL Assessment and Plan Assessment: Alcohol intoxication with impending withdrawal -Already starting the trigger on CIWA scale -Thiamine, folic acid -Start Librium 10 mg 3 times daily in addition to CIWA protocol -cinder pit worker consult -Seizure precautions and fall precautions Alcoholic hepatitis -Repeat CMP in a.m. GERD -PPI Tobacco abuse -Nicotine replacement -Cessation DVT prophylaxis: Early ambulation Discussed with: Patient, nursing Anticipated discharge: 1- days Anticipated discharge place: home A total of 25 minutes was spent on the care of this complex patient more than 50% of the time was spent in counseling and care coordination.
[2018-12-22] MEDS: NICOTINE 14MG/24HR PATCH TRANSDERM SCH (14:12)
[2018-12-22] MEDS: FOLIC ACID 1 MG TAB PO SCH (14:12)
[2018-12-22] MEDS ORDERED: CALCIUM CARBONATE 500 MG CHEWABLE PO PRN (18:42)
[2018-12-22] MEDS ORDERED: ACETAMINOPHEN TAB 325 MG TAB PO PRN (18:42)
[2018-12-22] MEDS ORDERED: SIMETHICONE 80 MG CHEWABLE PO PRN (18:43)
[2018-12-23] MEDS: HEPARIN SODIUM,PORCINE 5,000 UNIT/ML 1 ML VIAL SQ SCH ×3 (00:04→17:55)
[2018-12-23 07:18] LABS: HCT 41.7 % (39.0-53.0); HGB 14.1 gm/dL (13.0-17.5); MCH 32.6 pg (25.0-35.0); MCHC 33.7 g/dL (31.0-37.0); MCV 96.6 fL (80.0-100.0); Mean Platelet Volume 8.5; Platelet Count 181 k/uL (150-450); RBC 4.32 m/uL (4.30-5.90); RDW 14.4 % (11.5-15.5); WBC 8.6 k/uL (3.8-10.6)
[2018-12-23 07:52] LABS: ALT 88 U/L (21-72); AST 78 U/L (17-59); Albumin 4.5 g/dL (3.5-5.0); Alkaline Phosphatase 45 U/L (38-126); Anion Gap 11 mmol/L; Blood Urea Nitrogen 8 mg/dL (9-20); Calcium 9.5 mg/dL (8.4-10.2); Carbon Dioxide 25 mmol/L (22-30); Chloride 102 mmol/L (98-107); Glucose 71 mg/dL (74-99); Magnesium 1.4 mg/dL (1.6-2.3); Potassium 3.7 mmol/L (3.5-5.1); Sodium 138 mmol/L (137-145); Total Bilirubin 0.9 mg/dL (0.2-1.3); Total Protein 6.9 g/dL (6.3-8.2)
[2018-12-23] MEDS: NICOTINE 14MG/24HR PATCH TRANSDERM SCH (09:27)
[2018-12-23] MEDS: PANTOPRAZOLE 40 MG TABLET PO SCH (09:27)
[2018-12-23] MEDS: FOLIC ACID 1 MG TAB PO SCH (09:27)
[2018-12-23] MEDS: THIAMINE 100 MG TAB PO SCH ×2 (09:28→17:55)
[2018-12-23] MEDS: LORazepam 2 MG/ML INJ IV PRN (10:33)
[2018-12-23] MEDS: SODIUM CHLORIDE 0.9% 1,000 ML IV SCH ×2 (10:35→17:56)
--- NOTE | 2018-12-23 21:11 | P.PN ---
Subjective Progress Note Date: 12/23/18 (delayed charting seen at 1200) Principal diagnosis: Alcohol withdrawal Patient is a 48-year-old male with a past medical history of GERD, alcohol abuse, and chronic low back pain who presented to the emergency Department severe alcohol intoxication and requesting to help quit drinking. In the ER he underwent an extensive evaluation. He had suffered a fall several weeks ago and did not seek medical attention at that point in time. He underwent a CT head/neck which showed no acute findings the minimal sinus disease. Initial vital signs were within normal limits. Laboratory analysis showed slightly elevated AST at 132 and ALT 115. Alcohol level was 474. He was admitted for impending alcohol withdrawal and detox therapy. He was started on CIWA protocol. Liver enzymes improving. Withdrawl improving by 12/23 with addition of librium Patient seen and examined at bedside. Feeling shaky today, headache improved but not resolved, nausea and diarrhea improved, still feeling slightly weak. Anxious to go home. Objective - Vital Signs Vital signs: Vital Signs Temp 98.3 F 12/23/18 20:04 Pulse 72 12/23/18 20:04 Resp 17 12/23/18 20:04 BP 131/86 12/23/18 20:04 Pulse Ox 98 12/23/18 20:04 Intake & Output 12/23/18 12/23/18 12/24/18 06:59 18:59 06:59 Intake Total 900 Balance 900 Intake: Intake, IV Titration 900 Amount Sodium Chloride 0.9% 1, 900 000 ml @ 100 mls/hr IV . Q10H JOZEF Rx#:[id number] Other: # Voids 2 3 - Exam General: non toxic, no distress, appears at stated age Derm: warm, dry Head: atraumatic, normocephalic, symmetric Eyes: EOMI, no lid lag, anicteric sclera Mouth: no lip lesion, mucus membranes moist Cardiovascular: S1S2 reg, no murmur, positive posterior tibial pulse bilateral, Lungs: Decreased breath sounds bilateral, no rhonchi, no rales , no accessory muscle use Abdominal: soft, nontender to palpation, no guarding, no appreciable organ omegaly Ext: no gross muscle atrophy, no edema, no contractures Neuro: CN II-XI grossly intact, no focal neuro deficits, no tremors noted Psych: Alert, oriented, appropriate affect - Labs CBC & Chem 7: 12/23/18 06:24 12/23/18 06:24 Labs: Abnormal Lab Results - Last 24 Hours (Table) 12/23/18 Range/Units 06:24 BUN 8 L (9-20) mg/dL Creatinine 0.52 L (0.66-1.25) mg/dL Glucose 71 L (74-99) mg/dL Magnesium 1.4 L (1.6-2.3) mg/dL AST 78 H (17-59) U/L ALT 88 H (21-72) U/L Assessment and Plan Assessment: Alcohol withdrawal -Thiamine, folic acid -Librium 10 mg 3 times daily in addition to CIWA protocol -chip loft worker consult -Seizure precautions and fall precautions Alcoholic hepatitis, improving -Repeat CMP in a.m. GERD -PPI Tobacco abuse -Nicotine replacement -Cessation DVT prophylaxis: Early ambulation Discussed with: Patient, nursing Anticipated discharge: Likely home in a.m. Anticipated discharge place: home A total of 25 minutes was spent on the care of this complex patient more than 50% of the time was spent in counseling and care coordination.
[2018-12-24] MEDS: HEPARIN SODIUM,PORCINE 5,000 UNIT/ML 1 ML VIAL SQ SCH ×3 (00:37→08:24)
[2018-12-24] MEDS: SODIUM CHLORIDE 0.9% 1,000 ML IV SCH (04:13)
[2018-12-24 07:49] VITALS: PULSE 85; RESP 18; TEMP 98.7
[2018-12-24 08:11] VITALS: BP 143/87
[2018-12-24] MEDS: THIAMINE 100 MG TAB PO SCH (08:22)
[2018-12-24] MEDS: FOLIC ACID 1 MG TAB PO SCH (08:22)
[2018-12-24] MEDS: PANTOPRAZOLE 40 MG TABLET PO SCH (08:22)
[2018-12-24] MEDS: NICOTINE 14MG/24HR PATCH TRANSDERM SCH (08:22)
--- NOTE | 2018-12-24 20:42 | P.DS ---
Providers Date of admission: 12/21/18 23:48 Expected date of discharge: 12/24/18 Attending physician: Juan Sanders MD Primary care physician: Parmjit Rider Hospital Course: Discharge Diagnosis: Alcohol withdrawal Alcoholic hepatitis GERD Tobacco abuse Hospital Course: Patient is a 48-year-old male with a past medical history of GERD, alcohol abuse, and chronic low back pain who presented to the Emergency Department with severe alcohol intoxication and requesting help to quit drinking. In the ER he underwent an extensive evaluation. He had suffered a fall several weeks ago and did not seek medical attention at that point in time. He underwent a CT head/neck which showed no acute findings with minimal sinus disease. Initial vital signs were within normal limits. Laboratory analysis showed slightly elevated AST at 132 and ALT 115. Alcohol level was 474. He was admitted for impending alcohol withdrawal and detox therapy. He was started on CIWA protocol. Liver enzymes improving. Withdrawal improving by 12/23 with addition of librium. [place] back to baseline on 12/24. He did not want to go back to [facility] for treatment and does not want to join [employer]. He was given resources by social work. He was back to baseline and subsequently discharged home. He will complete a librium taper. We did discuss that librium can lead to overdose if combined with alcohol, and he is aware. He will follow with Dr. Rider in a few days, and is aware that he should have his liver enzymes repeated to ensure then normalize. Patient seen and examined at bedside. Headache resolved, tremors resolved, no longer diaphoretic. Feeling back to baseline and wants to go home. Determined that he will abstain from alcohol. Vital signs reviewed and stable. General: non toxic, no distress, appears at stated age Derm: warm, dry Head: atraumatic, normocephalic, symmetric Eyes: EOMI, no lid lag, anicteric sclera Mouth: no lip lesion, mucus membranes moist Cardiovascular: S1S2 reg, no murmur, positive posterior tibial pulse bilateral, Lungs: CTA bilateral, no rhonchi, no rales , no accessory muscle use Abdominal: soft, nontender to palpation, no guarding, no appreciable organomegaly Ext: no gross muscle atrophy, no edema, no contractures Neuro: CN II-XI grossly intact, no focal neuro deficits Psych: Alert, oriented, appropriate affect A total of 35 minutes of time were spent preparing this complex discharge summary . Pertinent Studies: CT head and neck-no acute process Patient Condition at Discharge: Stable Plan - Discharge Summary New Discharge Prescriptions: New chlordiazePOXIDE HCl [Librium] 10 mg PO DIRECTED #8 cap Discharge Medication List chlordiazePOXIDE HCl [Librium] 10 mg PO DIRECTED #8 cap 12/24/18 [Rx] Follow up Appointment(s)/Referral(s): Parmjit Rider MD [Primary Care Provider] - 12/26/18 9:45 am Patient Instructions/Handouts: Alcohol Intoxication (ED) Activity/Diet/Wound Care/Special Instructions: regular diet activity as tolerated Do not combine librium with alcohol Discharge Disposition: HOME SELF-CARE
== END 2018-12-24 11:40 | disposition home or self-care (01) | DRG 897 ==
LOC: EC 20:36 → 4SSUR 23:48
PROVIDERS: ADMIT Internal Medicine; ATTEND Internal Medicine
DX: F10.229 Alcohol dependence with intoxication, unspecified (principal); F10.239 Alcohol dependence with withdrawal, unspecified; F17.210 Nicotine dependence, cigarettes, uncomplicated; Z71.41 Alcohol abuse counseling and surveillance of alcoholic; F32.9 Major depressive disorder, single episode, unspecified; F41.9 Anxiety disorder, unspecified; K21.9 Gastro-esophageal reflux disease without esophagitis; K70.10 Alcoholic hepatitis without ascites; Z91.81 History of falling; Y90.8 Blood alcohol level of 240 mg/100 ml or more; Z80.8 Family history of malignant neoplasm of other organs or systems; Z82.3 Family history of stroke; M54.5 Low back pain
CPT/HCPCS: 36415; 70450; 72125; 80053; 80306; 80320; 81003; 82075; 83690; 83735; 85025; 85027; 96361; 96372; 96374; 99285

== ENCOUNTER 2019-02-08 10:38 | Emergency (ER) | payer OTHER ==
[2019-02-08 10:45] VITALS: BP 126/84; PULSE 78; RESP 18; TEMP 98
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
--- NOTE | 2019-02-08 11:32 | XR ---
Right ankle and right foot HISTORY: Trauma and pain 3 views of the right ankle, 3 views of the right foot are submitted. No comparisons Bone mineralization, joint spaces and alignment are maintained. Ossific density lateral to the interp halangeal joint of the first digit is well-corticated and not felt likely to be acute. There is some obliquity to the frontal view of the right foot. There is a small plantar calcaneal spur. IMPRESSION: No fracture or dislocation.
== END 2019-02-08 12:00 | disposition home or self-care (01) ==
LOC: EC 10:38
DX: S90.31XA Contusion of right foot, initial encounter (principal); F17.200 Nicotine dependence, unspecified, uncomplicated; Z88.0 Allergy status to penicillin; V03.90XA Pedestrian on foot injured in collision with car, pick-up truck or van, unspecified whether traffic or nontraffic accident, initial encounter
CPT/HCPCS: 99284

== ENCOUNTER 2020-02-05 15:35 | Inpatient (IN) | payer OTHER ==
[2020-02-05] MEDS ORDERED: SODIUM CHLORIDE 0.9% 1,000 ML IV STA (16:17)
--- NOTE | 2020-02-05 17:06 | CT ---
EXAMINATION TYPE: CT brain wo con DATE OF EXAM: 02/05/2020 HISTORY: Seizure activity today. CT DLP: 1173.4 mGycm. Automated Exposure Control for Dose Reduction was Utilized. TECHNIQUE: CT scan of the head is performed without contrast. COMPARISON: CT brain December 21, 2018.. FINDINGS: There is no acute intracranial hemorrhage or midline shift identified. There is diffuse v entricular and sulcal prominence consistent with mild diffuse age-related cerebral atrophy. Matthews-whit e matter differentiation is maintained. The globes are intact and the visualized sinuses are clear. IMPRESSION: No acute intracranial hemorrhage or midline shift. No significant change from prior.
[2020-02-05 17:12] LABS: AST 205 U/L (17-59); African American GFR (CKD) >90 (>60 ml/min/1.73 sqM); Albumin 4.5 g/dL (3.5-5.0); Alcohol <10 mg/dL; Alkaline Phosphatase 53 U/L (38-126); Anion Gap 20 mmol/L; Blood Urea Nitrogen 7 mg/dL (9-20); Calcium 9.8 mg/dL (8.4-10.2); Carbon Dioxide 18 mmol/L (22-30); Chloride 85 mmol/L (98-107); Glucose 130 mg/dL (74-99); Non-African American GFR(CKD) >90 (>60 ml/min/1.73 sqM); Potassium 4.4 mmol/L (3.5-5.1); Sodium 123 mmol/L (137-145); Total Bilirubin 0.8 mg/dL (0.2-1.3)
[2020-02-05 17:17] LABS: ALT 71 U/L (4-49)
[2020-02-05 17:29] LABS: Basophils % (A) 0 %; Eosinophils # (A) 0.1 k/uL (0-0.7); Eosinophils % (A) 0 %; HCT 40.1 % (39.0-53.0); HGB 13.8 gm/dL (13.0-17.5); Lymphocytes # (A) 0.8 k/uL (1.0-4.8); Lymphocytes % (A) 5 %; MCH 29.7 pg (25.0-35.0); MCHC 34.4 g/dL (31.0-37.0); MCV 86.4 fL (80.0-100.0); Mean Platelet Volume 8.7; Monocytes # (A) 1.3 k/uL (0-1.0); Monocytes % (A) 7 %; Neutrophils # (A) 15.7 k/uL (1.3-7.7); Neutrophils % (A) 88 %; Platelet Count 282 k/uL (150-450); RBC 4.64 m/uL (4.30-5.90); RDW 13.2 % (11.5-15.5)
[2020-02-05] MEDS ORDERED: LORazepam 2 MG/ML INJ IV STA (17:33)
[2020-02-05] MEDS: SODIUM CHLORIDE 0.9% 1,000 ML IV SCH (17:46)
[2020-02-05] MEDS ORDERED: LORazepam 2 MG/ML INJ IV PRN ×3 (18:00)
[2020-02-05] MEDS ORDERED: THIAMINE 100 MG/ML 2 ML VIAL IM STA (18:00)
--- NOTE | 2020-02-05 18:04 | ED ---
General Adult HPI - General Chief complaint: Seizure Stated complaint: Seizure Time Seen by Provider: 02/05/20 16:17 Source: patient, EMS, RN notes reviewed, old records reviewed Mode of arrival: EMS Limitations: no limitations - History of Present Illness Initial comments: 50-year-old male presenting for evaluation of seizure. Patient has no previous seizure history. He had a 1 minute witnessed tonic-clonic seizure. Patient is somewhat postictal but able to answer questions on initial evaluation. He does admit to daily drinking approximately 10 drinks daily. He states he has not had anything to drink in the past 24-48 hours. He has no previous history of alcohol withdrawal seizure. No chronic medical conditions. Denies pain complaints. He did bite his tongue. - Related Data Home Medications Medication Instructions Recorded Confirmed Sildenafil Citrate 100 mg PO DAILY PRN 02/05/20 02/05/20 buPROPion XL [Wellbutrin Xl] 150 mg PO DAILY 02/05/20 02/05/20 traZODone HCL [Desyrel] 100 mg PO HS 02/05/20 02/05/20 Allergies Allergy/AdvReac Type Severity Reaction Status Date / Time Penicillins Allergy Rash/Hives Verified 02/08/19 10:45 Review of Systems ROS Statement: Those systems with pertinent positive or pertinent negative responses have been documented in the HPI. ROS Other: All systems not noted in ROS Statement are negative. Past Medical History Past Medical History: GERD/Reflux Additional Past Medical History / Comment(s): ETOH abuse, low back pain History of Any Multi-Drug Resistant Organisms: None Reported Past Surgical History: Orthopedic Surgery Additional Past Surgical History / Comment(s): 2014 surgery for fractured penis. Pt. states he broke both of his arms and had surgery; states back in 1999- something. States he lacerated his liver. States he fractured all of his ribs back in 2011. Past Anesthesia/Blood Transfusion Reactions: No Reported Reaction Past Psychological History: Anxiety, Depression Smoking Status: Current every day smoker Past Alcohol Use History: Abuse, Heavy Past Drug Use History: Marijuana - Past Family History Father Family Medical History: Cancer Additional Family Medical History / Comment(s): Brain CA and is . Mother Family Medical History: CVA/TIA Additional Family Medical History / Comment(s): Mother is living. General Exam Limitations: no limitations General appearance: alert, in no apparent distress Head exam: Present: atraumatic, normocephalic Eye exam: Present: normal appearance, PERRL ENT exam: Present: mucous membranes dry, other (Right lateral tongue abrasion) Neck exam: Present: normal inspection. Absent: tenderness, meningismus Respiratory exam: Present: normal lung sounds bilaterally. Absent: respiratory distress Cardiovascular Exam: Present: regular rate, normal rhythm GI/Abdominal exam: Present: soft. Absent: distended, tenderness, guarding, rebound Extremities exam: Present: normal inspection, normal capillary refill. Absent: pedal edema Neurological exam: Present: alert, oriented X3, CN II-XII intact. Absent: motor sensory deficit Psychiatric exam: Present: normal affect, normal mood Skin exam: Present: warm, dry, intact, normal color. Absent: cyanosis, diaphoretic Course Vital Signs 02/05/20 02/05/20 02/05/20 15:37 17:44 17:49 Temperature 100.8 F H Pulse Rate 81 75 77 Respiratory 18 18 18 Rate Blood Pressure 128/78 128/78 133/91 O2 Sat by Pulse 95 100 100 Oximetry EKG Findings - EKG Comments: EKG Findings:: EKG: Normal sinus rhythm with sinus arrhythmia, rate of 78, LA interval 156, QRS duration 88, QTC 456, no ST segment elevation. Medical Decision Making - Medical Decision Making 50-year-old male with new onset seizure, daily alcohol use. Head CT performed negative for intracranial hemorrhage or mass effect. He has a white blood cell count of 18, patient did have some vomiting and this may be reactive. He has a sodium of 123, he is mildly acidotic with a CO2 of 18. He has elevated AST and ALT which may be related to alcohol. Patient remains in sinus rhythm with stable vitals. He is given Ativan, normal saline in the emergency department. I suspect this is alcohol withdrawal however he does have sodium of 123 which may be contributing. He is maintained on normal saline. He is placed on Ativan according to CIWA. Case discussed with Dr. Pereira who will admit. - Lab Data Result diagrams: 02/05/20 16:08 02/05/20 16:08 Lab Results 02/05/20 02/05/20 Range/Units 16:08 16:08 WBC 18.0 H (3.8-10.6) k/uL RBC 4.64 (4.30-5.90) m/uL Hgb 13.8 (13.0-17.5) gm/dL Hct 40.1 (39.0-53.0) % MCV 86.4 (80.0-100.0) fL MCH 29.7 (25.0-35.0) pg MCHC 34.4 (31.0-37.0) g/dL RDW 13.2 (11.5-15.5) % Plt Count 282 (150-450) k/uL Neutrophils % 88 % Lymphocytes % 5 % Monocytes % 7 % Eosinophils % 0 % Basophils % 0 % Neutrophils # 15.7 H (1.3-7.7) k/uL Lymphocytes # 0.8 L (1.0-4.8) k/uL Monocytes # 1.3 H (0-1.0) k/uL Eosinophils # 0.1 (0-0.7) k/uL Basophils # 0.0 (0-0.2) k/uL Sodium 123 L (137-145) mmol/L Potassium 4.4 (3.5-5.1) mmol/L Chloride 85 L (98-107) mmol/L Carbon Dioxide 18 L (22-30) mmol/L Anion Gap 20 mmol/L BUN 7 L (9-20) mg/dL Creatinine 0.71 (0.66-1.25) mg/dL Est GFR (CKD-EPI)AfAm >90 (>60 ml/min/1.73 sqM) Est GFR (CKD-EPI)NonAf >90 (>60 ml/min/1.73 sqM) Glucose 130 H (74-99) mg/dL Calcium 9.8 (8.4-10.2) mg/dL Total Bilirubin 0.8 (0.2-1.3) mg/dL AST 205 H (17-59) U/L ALT 71 H (4-49) U/L Alkaline Phosphatase 53 (38-126) U/L Total Protein 7.0 (6.3-8.2) g/dL Albumin 4.5 (3.5-5.0) g/dL Serum Alcohol <10 mg/dL Disposition Clinical Impression: Alcohol abuse, New onset seizure, Alcohol withdrawal, Hyponatremia Disposition: ADMITTED IP TO THIS [facility] Condition: Stable Is patient prescribed a controlled substance at d/c from ED?: No Referrals: Nedic,Parmjit, MD [Primary Care Provider] - 1-2 days Decision to Admit Reason: Admit from EC Decision Date: 02/05/20 Decision Time: 18:04
[2020-02-05] MEDS ORDERED: NALOXONE 0.4 MG/ML 1 ML VIAL IV PRN (18:05)
[2020-02-05] MEDS: ACETAMINOPHEN TAB 325 MG TAB PO PRN (22:20)
--- NOTE | 2020-02-05 22:43 | XR ---
EXAMINATION TYPE: XR chest 1V portable DATE OF EXAM: 02/05/2020 COMPARISON: NONE HISTORY: Fever TECHNIQUE: Single view FINDINGS: Heart and mediastinum are normal. Lungs are clear of infiltrate. There are chest leads. Bon y thorax is intact. IMPRESSION: No active cardiopulmonary disease. Normal heart.
[2020-02-05 22:46] LABS: Appearance,Urine Clear (Clear); Bacteria,Urine Rare /hpf; Bilirubin,Urine Negative (Negative); Blood,Urine Trace (Negative); Color,Urine Light Yellow; Glucose,Urine (UA) Negative (Negative); Ketones,Urine Negative (Negative); Leukocyte Esterase,Urine Negative (Negative); Nitrite,Urine Negative (Negative); Protein,Urine Negative (Negative); Specific Gravity,Urine 1.002 (1.001-1.035); Urobilinogen,Urine <2.0 mg/dL (<2.0); WBC,Urine <1 /hpf (0-5)
[2020-02-06] MEDS ORDERED: MORPHINE SULFATE 2 MG/ML SYRINGE IVP STA ×2 (00:34→03:03)
--- NOTE | 2020-02-06 03:14 | P.HPIM ---
History of Present Illness H&P Date: 02/05/20 The patient is a 50-year-old male with a PMH of extensive EtOH abuse with history of delirium tremens requiring ICU admissions presented to the ED after an episode of seizure at home. The patient reports that she normally drinks a pint of vodka daily though had been trying to cut down and had essentially stopped drinking with his last drink 48-72 hours ago. He notes that earlier today he felt somewhat shaky and was found by his girlfriend to be somewhat confused and he subsequently had an episode which she described as a seizure. The patient reported that his girlfriend told him he was on the ground and shaking uncontrollably and had lost control of his urine. The episode lasted an unknown amount of time and the patient notes he was confused afterwards. The patient also reports biting his tongue during this episode. The patient notes that he has previously attempted to detox from alcohol and has never had a seizure before, despite having gone into delirium tremens. At time of int erview, he reported feeling sore along with having pain at the tongue. He otherwise denied fever, chills, chest pain, shortness of breath, dysuria, nausea, vomiting, dizziness, visual disturbances, headache or abdominal pain. In the ED, CT brain was unremarkable with chest x-ray also unremarkable and EKG showing normal sinus rhythm at 78 bpm. Laboratory evaluation revealed a WBC count of 18.0, sodium 123, potassium 4.4, chloride 85, CO2 18, BUN 7, creatinine 0.71, glucose 1:30, AST 205, ALT 71, with UA unremarkable, and serum alcohol level less than 10. Review of Systems Pertinent positives and negatives as discussed in HPI, a complete review of systems was performed and all other systems are negative. Past Medical History Past Medical History: GERD/Reflux Additional Past Medical History / Comment(s): ETOH abuse, low back pain History of Any Multi-Drug Resistant Organisms: None Reported Past Surgical History: Orthopedic Surgery Additional Past Surgical History / Comment(s): 2014 surgery for fractured penis. Pt. states he broke both of his arms and had surgery; states back in 1999- . States he lacerated his liver. States he fractured all of his ribs back in 2011. Past Anesthesia/Blood Transfusion Reactions: No Reported Reaction Past Psychological History: Anxiety, Depression Additional Psychological History / Comment(s): Pt resides with his significant other. 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 Smoking Status: Current every day smoker Past Alcohol Use History: Abuse, Heavy Additional Past Alcohol Use History / Comment(s): Pt started smoking in 1984 and is about a 1 ppd smoker. He has been drinking more for quite a while and is up to at least 1/5 of vodka a day. Past Drug Use History: Marijuana Additional Drug Use History / Comment(s): Occasional marijuana use. - Past Family History Father Family Medical History: Cancer Additional Family Medical History / Comment(s): Brain CA and is . Mother Family Medical History: CVA/TIA Additional Family Medical History / Comment(s): Mother is living. Medications and Allergies Home Medications Medication Instructions Recorded Confirmed Type Sildenafil Citrate 100 mg PO DAILY PRN 02/05/20 02/05/20 History buPROPion XL [Wellbutrin Xl] 150 mg PO DAILY 02/05/20 02/05/20 History traZODone HCL [Desyrel] 100 mg PO HS 02/05/20 02/05/20 History Allergies Allergy/AdvReac Type Severity Reaction Status Date / Time Penicillins Allergy Rash/Hives Verified 02/08/19 10:45 Physical Exam Vitals: Vital Signs Temp Pulse Pulse Resp BP BP Pulse Ox 02/05/20 20:00 99 F 88 18 121/67 98 02/05/20 18:37 100.2 F H 81 16 121/62 96 02/05/20 18:30 100.1 F H 71 20 125/82 96 02/05/20 18:00 75 17 133/91 95 02/05/20 17:49 77 18 133/91 100 02/05/20 17:44 75 18 128/78 100 02/05/20 15:37 100.8 F H 81 18 128/78 95 Intake and Output 02/05/20 02/05/20 02/05/20 06:59 14:59 22:59 Output Total 1050 Balance -1050 Output: Urine 1050 Other: Weight 83.915 kg General: non toxic, no distress, appears at stated age, normal weight Derm: no unusual rashes/lesions no unusual ecchymoses, warm, dry Head: atraumatic, normocephalic, symmetric Eyes: EOMI, no lid lag, anicteric sclera, pupils equal round reactive to light ENT: Nose and ears atraumatic, no thrush, right-sided tongue bite dominique, no pharyngeal erythema Neck: No thyromegaly, no cervical lymphadenopathy, trachea midline, supple Mouth: no lip lesion, mucus membranes moist Cardiovascular: S1S2 reg, no murmur, positive posterior tibial pulse bilateral, no edema, capillary refill less than 2 seconds Lungs: CTA bilateral, no rhonchi, no rales , no accessory muscle use Abdominal: soft, nontender to palpation, no guarding, no appreciable organomegaly, normal bowel sounds Ext: no gross muscle atrophy, muscle strength 5 out of 5 in all 4 extremities grossly, no contractures, Neuro: CN II-XI grossly intact, light touch intact all 4 extremities, finger to nose within normal limits, no outstretched hand tremor, mild tongue fasciculations noted, Kernigs and Brudzinskis negative Psych: Awake, alert, oriented to person, and place, and oriented to month and year though couldn't state the exact date Results CBC & Chem 7: 02/05/20 16:08 02/05/20 16:08 Labs: Abnormal Lab Results - Last 24 Hours (Table) 02/05/20 02/05/20 Range/Units 16:08 16:08 WBC 18.0 H (3.8-10.6) k/uL Neutrophils # 15.7 H (1.3-7.7) k/uL Lymphocytes # 0.8 L (1.0-4.8) k/uL Monocytes # 1.3 H (0-1.0) k/uL Sodium 123 L (137-145) mmol/L Chloride 85 L (98-107) mmol/L Carbon Dioxide 18 L (22-30) mmol/L BUN 7 L (9-20) mg/dL Glucose 130 H (74-99) mg/dL AST 205 H (17-59) U/L ALT 71 H (4-49) U/L Thrombosis Risk Factor Assmnt - Choose All That Apply Any of the Below Risk Factors Present?: Yes Each Factor Represents 1 point: Age 41-60 years Other Risk Factors: No Other congenital or acquired thrombophilia - If yes, enter type in comment: No Thrombosis Risk Factor Assessment Total Risk Factor Score: 1 Thrombosis Risk Factor Assessment Level: Low Risk Assessment and Plan Plan: Alcohol withdrawal seizure -Continue with CIWA protocol -Thiamine and folic acid and multivitamin -Continue with fall, aspiration, seizure precautions -Start Librium -Advised on the importance of cessation from alcohol use -Continue with IV fluids and monitor electrolytes daily Hypochloremic hyponatremia -Likely secondary to chronic malnutrition with beer potomania -Avoid over-correction -Continue with normal saline -Monitor BMP -Check magnesium levels Abnormal LFTs, likely direct hepatotoxicity from alcohol use -Monitor this for now Leukocytosis -No active source of infection noted at this time -Likely due to acute distress DVT prophylaxis -Heparin subq The patient is admitted with an anticipated greater than 2 midnight stay for evaluation of EtOH withdrawal CODE STATUS: Full Code Discussed with: patient Anticipated discharge date: 2-[address]: Home A total of 40 minutes was spent on the care of this complex patient more than 50% of the time was spent in counseling and care coordination.
[2020-02-06] MEDS: THIAMINE 100 MG TAB PO SCH ×2 (06:49→16:44)
[2020-02-06] MEDS: SODIUM CHLORIDE 0.9% 1,000 ML IV SCH (06:56)
[2020-02-06 07:30] LABS: HCT 41.7 % (39.0-53.0); HGB 13.5 gm/dL (13.0-17.5); MCH 28.3 pg (25.0-35.0); MCHC 32.3 g/dL (31.0-37.0); MCV 87.7 fL (80.0-100.0); Mean Platelet Volume 7.5; Platelet Count 290 k/uL (150-450); RBC 4.76 m/uL (4.30-5.90); RDW 13.8 % (11.5-15.5); WBC 15.1 k/uL (3.8-10.6)
[2020-02-06 07:59] LABS: ALT 80 U/L (4-49); AST 163 U/L (17-59); African American GFR (CKD) >90 (>60 ml/min/1.73 sqM); Albumin 3.8 g/dL (3.5-5.0); Alkaline Phosphatase 49 U/L (38-126); Anion Gap 7 mmol/L; Blood Urea Nitrogen 9 mg/dL (9-20); Calcium 9.2 mg/dL (8.4-10.2); Carbon Dioxide 26 mmol/L (22-30); Chloride 105 mmol/L (98-107); Glucose 88 mg/dL (74-99); Magnesium 2.1 mg/dL (1.6-2.3); Non-African American GFR(CKD) >90 (>60 ml/min/1.73 sqM); Potassium 3.6 mmol/L (3.5-5.1); Sodium 138 mmol/L (137-145); Total Bilirubin 0.9 mg/dL (0.2-1.3); Total Protein 6.3 g/dL (6.3-8.2)
[2020-02-06] MEDS: FOLIC ACID 1 MG TAB PO SCH (08:20)
[2020-02-06] MEDS: HEPARIN SODIUM,PORCINE 5,000 UNIT/ML 1 ML VIAL SQ SCH ×2 (08:20→16:43)
[2020-02-06] MEDS: MULTIVITAMINS, THERA 1 EACH TAB PO SCH (08:20)
[2020-02-06 12:08] LABS: Cholesterol 166 mg/dL (<200); HDL Cholesterol 75 mg/dL (40-60); LDL Cholesterol,Calculated 77 mg/dL (0-99); Triglycerides 70 mg/dL (<150)
--- NOTE | 2020-02-06 14:45 | MR ---
EXAMINATION TYPE: MR brain wo con DATE OF EXAM: 02/06/2020 COMPARISON: 02/05/2020 CT brain HISTORY: New onset seizure, No Know head injury. Hx ETOH abuse, Hyponatremia CONTRAST: Performed utilizing 0 mL intravenous Gadavist gadolinium contrast. TECHNIQUE: Multiplanar, multiecho imaging on a 3.0 Yue magnet is performed through the brain. Stud y is performed within 24 hours of arrival to the hospital. The craniovertebral junction is normal. The pituitary is normal. Diffusion-weighted imaging is performed. No abnormal hyperintensity is present to suggest an acute i ntracranial infarct or acute ischemic change. There are a few scattered subcortical white matter changes not out of proportion to the patient age. Cerebellum appears within normal limits. Brainstem appears unremarkable. Ventricles and sulci are appropriate for the patient age. There is mucosal thickening within the frontal sinuses ethmoid air cells and a focus retention cyst w ithin the left maxillary sinus. IMPRESSIONS: 1. Mild white matter changes not out of proportion to the patient age.
[2020-02-06] MEDS: ACETAMINOPHEN TAB 325 MG TAB PO PRN (16:47)
--- NOTE | 2020-02-06 17:13 | EEG ---
ELECTROENCEPHALOGRAM REPORT DATE OF SERVICE: 02/06/2020. HISTORY: This is an inpatient EEG performed on a 50-year-old gentleman with new-onset seizures. No prior history of seizures is noted. TECHNICAL REPORT: This is an inpatient EEG performed on the Xsigo EEG monitor with electrodes placed according to the international 10-20 system and a single EKG channel. Simultaneous video EEG monitoring was performed. This EEG was reviewed in both longitudinal bipolar, common average referential and transverse montages. Photic stimulation was performed. Hyperventilation was not performed. The recording begins with the patient in quiet wakefulness. A well-sustained, well- modulated, low- to moderate-amplitude 8-9 hertz alpha rhythm is present. The alpha rhythm attenuates with eye opening. Low-amplitude beta activity is prominent over the anterior and central head regions. The patient waxes and wanes between quiet wakefulness and drowsiness. Drowsiness is associated with further attenuation of the background rhythm, the appearance of slow rolling eye movements and an increase in beta anteriorly and centrally. Intermittent frequent eye blinking artifact is noted. During stage I sleep (drowsiness), the phone rings, which awakens the patient. The background is reactive and the patient resumes a well-modulated 8 Hz posterior-dominant rhythm. Following this, the patient transitions back into stage I sleep followed by entry into stage II non-rapid eye movement sleep. Stage II sleep is characterized by a further attenuation of the background into low- amplitude mixed theta frequencies between 6 and 7 Hz. Rare synchronous sleep spindles are noted and rare symmetric vertex waves. Deeper stages of sleep were not achieved. During stage II sleep the phone rings again and awakens the patient. The background is reactive and the patient resumes a normal 8-9 hertz posterior-dominant rhythm associated with wakefulness. Deeper stages of sleep such as slow-wave sleep and rapid eye movement sleep were not achieved. IMPRESSION: This is a normal wake drowsy sleep recording. No epileptiform discharges, electrographic seizures or clinical seizures were noted. No abnormalities were noted in the EKG. No abnormalities were noted during photic stimulation. CLINICAL CORRELATION: A normal wake sleep EEG recording does not preclude an underlying seizure tendency; thus further clinical correlation is needed. If clinically indicated, serial EEGs and/or a more prolonged overnight study could provide additional information. MMODL / IJN: [id number] /
[2020-02-06] MEDS ORDERED: BENZOCAINE 20 % GEL 15 GM TUBE MM PRN (19:43)
--- NOTE | 2020-02-06 20:02 | P.PN ---
Subjective Progress Note Date: 02/06/20 (delayed charting seen at 1015) Principal diagnosis: seizure Patient is a 50-year-old male with a history of multiple hospitalizations secondary to EtOH abuse and withdrawal with prior ICU admissions, acid reflux, and chronic low back pain who presented after a seizure at home. He had been cutting down on his alcohol intake and had not had anything to drink in 48-72 hours. In the ER he underwent an extensive evaluation. Chest x-ray and EKG were unremarkable. CT of the brain did not show any acute process. On initial arrival he was febrile with a temperature of 100.8. Initial vital signs and white blood cell count of 18, sodium 123, carbon dioxide 18, anion gap 20, BUN 7, creatinine 0.71, AST 205, ALT 71, alcohol undetectable, coated testing was negative, urinalysis negative. He was given a dose of Ativan and arrangements were made for admission for seizure. Neurology was consulted. He underwent an MRI which showed mild white matter changes. EEG did not show any underlying seizure tendency. Patient seen and examined at bedside. He complains of pain on the right side of his tongue where he bit it. He denies any headache, nausea, vomiting, tremors, or hallucinations. He states he is not involved with AA nor does he want to be. He has tried [facility] in the past and does not want to go back there. He does state he is trying to stop alcohol at home. Objective - Vital Signs Vital signs: Vital Signs Temp 99.2 F 02/06/20 08:00 Pulse 56 L 02/06/20 16:00 Resp 16 02/06/20 16:00 BP 140/79 02/06/20 16:00 Pulse Ox 98 02/06/20 16:00 Intake & Output 02/06/20 02/06/20 02/07/20 06:59 18:59 06:59 Output Total 600 1200 Balance -600 -1200 Weight 81.5 kg Output: Urine 600 800 Other 400 Other: Voiding Method Urinal Urinal - Exam General: non toxic, no distress, appears at stated age Derm: Tongue with bite roman right base warm, dry Head: atraumatic, normocephalic, symmetric Eyes: EOMI, no lid lag, anicteric sclera Mouth: no lip lesion, mucus membranes moist Cardiovascular: S1S2 reg, no murmur, positive posterior tibial pulse bilateral, Lungs: CTA bilateral, no rhonchi, no rales , no accessory muscle use Abdominal: soft, nontender to palpation, no guarding, no appreciable organ omegaly Ext: no gross muscle atrophy, no edema, no contractures Neuro: CN II-XI grossly intact, no focal neuro deficits Psych: Alert, oriented, appropriate affect - Labs CBC & Chem 7: 02/06/20 06:34 02/06/20 06:34 Labs: Abnormal Lab Results - Last 24 Hours (Table) 02/05/20 02/06/20 02/06/20 Range/Units 22:20 06:34 06:34 WBC 15.1 H (3.8-10.6) k/uL AST 163 H (17-59) U/L ALT 80 H (4-49) U/L HDL Cholesterol (40-60) mg/dL Urine Blood Trace H (Negative) Urine Bacteria Rare H (None) /hpf 02/06/20 Range/Units 06:34 WBC (3.8-10.6) k/uL AST (17-59) U/L ALT (4-49) U/L HDL Cholesterol 75 H (40-60) mg/dL Urine Blood (Negative) Urine Bacteria (None) /hpf Assessment and Plan Assessment: New onset seizure, suspect ETOH withdrawal -Continue with CIWA protocol -Thiamine and folic acid and multivitamin -Continue with fall, aspiration, seizure precautions -Neurology consulted: MRI normal, EEG without focus of seizure activity -Does not want [facility] or AA -No driving for 6 months Tongue bite - orajel Probable alcoholic hepatitis -Repeat CMP in a.m. -Abstain from alcohol Leukocytosis -Likely reactive -Did have mild fevers on admission but no suspicion of infection at this point in time -Repeat in a.m. Hyponatremia, resolved DVT prophylaxis: heparin Discussed with: patient, nursing Anticipated discharge: in AM Anticipated discharge place: 25 A total of 35 minutes was spent on the care of this complex patient more than 50% of the time was spent in counseling and care coordination.
[2020-02-07] MEDS: ACETAMINOPHEN TAB 325 MG TAB PO PRN (00:25)
[2020-02-07] MEDS: HEPARIN SODIUM,PORCINE 5,000 UNIT/ML 1 ML VIAL SQ SCH ×3 (00:27→18:10)
[2020-02-07] MEDS: THIAMINE 100 MG TAB PO SCH (06:30)
[2020-02-07 07:26] LABS: HCT 42.2 % (39.0-53.0); HGB 13.6 gm/dL (13.0-17.5); MCH 28.6 pg (25.0-35.0); MCHC 32.3 g/dL (31.0-37.0); MCV 88.4 fL (80.0-100.0); Mean Platelet Volume 7.5; Platelet Count 293 k/uL (150-450); RBC 4.77 m/uL (4.30-5.90); RDW 13.7 % (11.5-15.5); WBC 11.7 k/uL (3.8-10.6)
[2020-02-07 07:38] LABS: ALT 112 U/L (4-49); AST 265 U/L (17-59); African American GFR (CKD) >90 (>60 ml/min/1.73 sqM); Albumin 3.7 g/dL (3.5-5.0); Alkaline Phosphatase 48 U/L (38-126); Anion Gap 6 mmol/L; Blood Urea Nitrogen 15 mg/dL (9-20); Calcium 9.2 mg/dL (8.4-10.2); Carbon Dioxide 27 mmol/L (22-30); Chloride 107 mmol/L (98-107); Glucose 89 mg/dL (74-99); Magnesium 1.9 mg/dL (1.6-2.3); Non-African American GFR(CKD) >90 (>60 ml/min/1.73 sqM); Potassium 3.8 mmol/L (3.5-5.1); Sodium 140 mmol/L (137-145); Total Bilirubin 0.8 mg/dL (0.2-1.3); Total Protein 6.4 g/dL (6.3-8.2)
[2020-02-07] MEDS: FOLIC ACID 1 MG TAB PO SCH (08:21)
[2020-02-07] MEDS: MULTIVITAMINS, THERA 1 EACH TAB PO SCH (08:21)
[2020-02-07 13:17] LABS: Amphetamine Screen,Urine Not Detected (NotDetected); Barbiturate Screen,Urine Not Detected (NotDetected); Benzodiazepines Screen,Urine Detected (NotDetected); Cocaine Screen,Urine Not Detected (NotDetected); Methadone Screen, Urine Not Detected (NotDetected); Opiate Screen,Urine Detected (NotDetected); Oxycodone Screen, Urine Not Detected (NotDetected); Phencyclidine Screen,Urine Not Detected (NotDetected); Tricyclic Antidepressant,Urine Not Detected (NotDetected); Urn Cannabinoid Scrn Not Detected (NotDetected)
--- NOTE | 2020-02-07 16:21 | P.CNNES ---
History of Present Illness Consult date: 02/07/20 Reason for Consult: New onset seizure Chief complaint: Alcohol withdrawal seizure. History of Present Illness: This is a 50-year-old gentleman who has a known history for alcoholism and was admitted on the for alcohol withdrawal symptoms and the new onset seizure. The patient however reports that he's not had any alcohol for several days and denies drinking daily. However other records show he does suffer from chronic alcoholism consuming approximately 10 beers per day. He has no other significant medical problems other than reflux chronic low back pain and chronic nicotine abuse. His current medications are Sildenafil, Wellbutrin, trazodone. ALLERGIES to penicillin next Past medical history: Gastroesophageal reflux. Alcohol abuse. Chronic low back pain. Chronic nicotine abuse. Next The patient was admitted for further evaluation given Ativan and placed on SIWA protocol. Pertinent labs on admission showed he had a decreased sodium of 123. Mildly acidotic with CO2 18. Elevated AST and an PLT. Normal sinus rate. Over the interim of this admission he did undergo an MRI of the brain which did not show any evidence of intracranial pathology. A computed tomography scan of the head that was normal. EEG showing no evidence of epileptiform activity or electrographic seizures. Past Medical History Past Medical History: GERD/Reflux Additional Past Medical History / Comment(s): ETOH abuse, low back pain History of Any Multi-Drug Resistant Organisms: None Reported Past Surgical History: Orthopedic Surgery Additional Past Surgical History / Comment(s): 2014 surgery for fractured penis. Pt. states he broke both of his arms and had surgery; states back in 1999- something. States he lacerated his liver. States he fractured all of his ribs back in 2011. Past Anesthesia/Blood Transfusion Reactions: No Reported Reaction Past Psychological History: Anxiety, Depression Additional Psychological History / Comment(s): Pt resides with his significant other. 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 Smoking Status: Current every day smoker Past Alcohol Use History: Abuse, Heavy Additional Past Alcohol Use History / Comment(s): Pt started smoking in 1984 and is about a 1 ppd smoker. He has been drinking more for quite a while and is up to at least 1/5 of vodka a day. Past Drug Use History: Marijuana Additional Drug Use History / Comment(s): Occasional marijuana use. - Past Family History Father Family Medical History: Cancer Additional Family Medical History / Comment(s): Brain CA and is . Mother Family Medical History: CVA/TIA Additional Family Medical History / Comment(s): Mother is living. Medications and Allergies Home Medications Medication Instructions Recorded Confirmed Type Sildenafil Citrate 100 mg PO DAILY PRN 02/05/20 02/05/20 History buPROPion XL [Wellbutrin Xl] 150 mg PO DAILY 02/05/20 02/05/20 History traZODone HCL [Desyrel] 100 mg PO HS 02/05/20 02/05/20 History Allergies Allergy/AdvReac Type Severity Reaction Status Date / Time Penicillins Allergy Rash/Hives Verified 02/08/19 10:45 Physical Examination - Vital Signs Vital Signs: Vital Signs Temp Pulse Resp BP Pulse Ox 02/07/20 11:57 98.1 F 53 L 15 122/73 97 02/07/20 08:00 98.9 F 64 20 122/80 93 L 02/07/20 04:00 98.2 F 59 L 16 123/72 94 L 02/07/20 00:00 98.5 F 63 16 128/76 95 02/06/20 20:00 98.6 F 59 L 16 136/78 97 Intake and Output 02/07/20 02/07/20 02/07/20 06:59 14:59 22:59 Intake Total 236 Output Total 0 0 Balance 0 236 Intake: Oral 236 Output: Urine 0 0 Other: Voiding Method Urinal Urinal Weight 84 kg Gen. exam Appearance: Thin body habitus HEENT: Clear sclera clear oropharynx neck supple. Chest: Clear to auscultation throughout. Cardiac: Regular rate and rhythm no murmurs noted. Pulses: Radial pedal pulses equal and symmetric. Extremities: No edema noted in the hands or feet. No clubbing of the digits noted. There is distal wasting of the muscles in the legs bilaterally. There is wasting in the feet with the intrinsic muscles bilaterally. Neurologic exam Mental status: Awake alert oriented times place person. Speech is fluent. Affect is sad and somewhat flat. Pupils: 2 mm equally reactive to light and accommodation. Cranial nerve exam: Cranial nerves III through XII are intact. Motor examination: Normal muscle bulk and tone in the upper extremities there is distal muscle wasting in the legs bilaterally below the knee. Moves all 4 extremities equally. Pronator drift negative. Strength is 5 out of 5 throughout. No abnormal involuntary movements noted. Deep tendon reflexes +2 over biceps brachial radialis. Patellar reflexes are absent. Ankle jerks absent. Plantar response is flexor bilaterally. Sensory exam: Intact to light touch and pinprick over the upper and lower extremities equally. Coordination testing intact to finger to nose testing with eyes open and eyes closed. Rapid sequential finger tapping is intact. He'll fitzpatrick maneuver intact. Gait examination patient is able to transfer from sitting to standing without difficulty no ataxia noted. Results - Laboratory Findings CBC and BMP: 02/07/20 06:42 02/07/20 06:42 Abnormal Lab Findings: Abnormal Labs 02/05/20 02/05/20 02/05/20 16:08 16:08 22:20 WBC 18.0 H Neutrophils # 15.7 H Lymphocytes # 0.8 L Monocytes # 1.3 H Sodium 123 L Chloride 85 L Carbon Dioxide 18 L BUN 7 L Glucose 130 H AST 205 H ALT 71 H HDL Cholesterol Urine Blood Trace H Urine Bacteria Rare H Urine Opiates Screen U Benzodiazepines Scrn 02/06/20 02/06/20 02/06/20 06:34 06:34 06:34 WBC 15.1 H Neutrophils # Lymphocytes # Monocytes # Sodium Chloride Carbon Dioxide BUN Glucose AST 163 H ALT 80 H HDL Cholesterol 75 H Urine Blood Urine Bacteria Urine Opiates Screen U Benzodiazepines Scrn 02/06/20 02/07/20 02/07/20 12:45 06:42 06:42 WBC 11.7 H Neutrophils # Lymphocytes # Monocytes # Sodium Chloride Carbon Dioxide BUN Glucose AST 265 H ALT 112 H HDL Cholesterol Urine Blood Urine Bacteria Urine Opiates Screen Detected H U Benzodiazepines Scrn Detected H Assessment and Plan Assessment: This is a 50-year-old gentleman neurology was requested to consult for new onset seizures. This patient has a long-standing history of multiple admissions for alcohol withdrawal. The patient reports on this admission however he hadn't had anything to drink for several days which could be alcohol withdrawal, however he is also on Wellbutrin which does have a high profile for seizures. This in combination with abrupt alcohol withdrawal could've significantly lowered his seizure threshold. On this examination there is no focal findings however he does have significant wasting of the legs bilaterally in a distal symmetric fashion. 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 He also has absent patellar reflexes and ankle jerks. This also goes along with a peripheral neuropathy picture. His neurological workup has essentially been negative in his ruled out any intracranial pathology. He's had no further seizures since admission. EEG was a normal wake only study. I am recommending that he follow-up with a neurologist within the next 2 weeks. I discussed [facility] laws regarding driving and seizures. I've advised the patient that he should follow up with a neurologist in due to the seizure he may require undergoing another EEG and close monitoring. Also I'm concerned for the distal wasting in his legs. This patient also has some findings that are suspicious for Uzdximj-Ctgtf-Lkiim disease. He also reports [place] ancestry. Summary 1. Alcohol withdrawal 2. New onset seizure possibly secondary to Wellbutrin as well as alcohol withdrawal 3. 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 This patient may be discharged home cleared by neurology today. 2. Strongly recommend that he does follow up with her neurologist within the next 2 weeks or sooner if there is any clinical change. 3. Discussed with patient the relationship of seizures and Wellbutrin and recommend possibly begin slow tapering. 4. Discussed with patient the importance of alcohol withdrawal seizures and abstinence. Patient cleared for discharge Thank you for this consultation. Patricia Marie M.D. Board Certified in Neurology and Sleep Medicine
[2020-02-07 16:59] VITALS: BP 123/77; PULSE 59; RESP 17; TEMP 97.8
--- NOTE | 2020-02-07 17:03 | P.DS ---
Providers Date of admission: 02/05/20 18:05 Expected date of discharge: 02/07/20 Attending physician: Melinda Pereira DO Consults: 02/06/20 08:32 Consult Physician Routine Consulting Provider: Patricia Marie Consult Reason/Comments: seizure, suspect due to ETOH withdrawal Do you want consulting provider notified?: Yes Primary care physician: Parmjit Rider Hospital Course: Discharge Diagnosis: New Onset Seizure Lieklt due to ETOH withdrawal in conjunction with wellbutrin Tongue bite Probable alcoholic hepatitis leukocytosis hyponatremia Hospital Course: Patient is a 50-year-old male with a history of multiple hospitalizations secondary to EtOH abuse and withdrawal with prior ICU admissions, acid reflux, and chronic low back pain who presented after a seizure at home. He had been cutting down on his alcohol intake and had not had anything to drink in 48-72 hours. In the ER he underwent an extensive evaluation. Chest x-ray and EKG were unremarkable. CT of the brain did not show any acute process. On initial arrival he was febrile with a temperature of 100.8. Initial vital signs and white blood cell count of 18, sodium 123, carbon dioxide 18, anion gap 20, BUN 7, creatinine 0.71, AST 205, ALT 71, alcohol undetectable, coated testing was negative, urinalysis negative. He was given a dose of Ativan and arrangements were made for admission for seizure. Neurology was consulted. He underwent an MRI which showed mild white matter changes. EEG did not show any underlying seizure tendency. He was clear by neurology who recommended tapering of his welbutrin over the next few weeks as it could contribute to the seizure. He will follow with Dr. Jose in the clina and Dr. Rider. He has been instructed to not drive for 6 months. We discussed multiple times the importance of abstaining for alcohol. Patient seen and examined at bedside. Still with Tongue pain, no complaints otherwise. No PAULA, no shaking, no nausea, no halluciations. Vital signs reviewed and stable. General: non toxic, no distress, appears at stated age Derm: warm, dry Head: atraumatic, normocephalic, symmetric Eyes: EOMI, no lid lag, anicteric sclera Mouth: no lip lesion, mucus membranes moist, + large right lateral tongue bite Cardiovascular: S1S2 reg, no murmur, positive posterior tibial pulse bilateral, Lungs: CTA bilateral, no rhonchi, no rales , no accessory muscle use Abdominal: soft, nontender to palpation, no guarding, no appreciable organomegaly Ext: no gross muscle atrophy, no edema, no contractures Neuro: CN II-XI grossly intact, no focal neuro deficits Psych: Alert, oriented, appropriate affect A total of 35 minutes of time were spent preparing this complex discharge summary . Patient Condition at Discharge: Stable Plan - Discharge Summary Discharge Rx Participant: Yes New Discharge Prescriptions: Continue Sildenafil Citrate 100 mg PO DAILY PRN PRN Reason: ED buPROPion XL [Wellbutrin XL] 150 mg PO DAILY traZODone HCL [Desyrel] 100 mg PO HS Discharge Medication List Sildenafil Citrate 100 mg PO DAILY PRN 02/05/20 [History] buPROPion XL [Wellbutrin XL] 150 mg PO DAILY 02/05/20 [History] traZODone HCL [Desyrel] 100 mg PO HS 02/05/20 [History] Follow up Appointment(s)/Referral(s): aPrmjit Rider MD [Primary Care Provider] - 1-2 days Sara Foley MD [Medical Doctor] - 2 Weeks Patient Instructions/Handouts: Nonepileptic Seizures (DC), Alcohol Withdrawal (GEN) Activity/Diet/Wound Care/Special Instructions: Activity: As tolerated No Driving for 6 months Diet: Regular Special Instructions: Wellbutrin: First dose 02/07 and then every 48 hours for 7 doses. Then further instructions form Dr. Rider. Discharge Disposition: HOME SELF-CARE
== END 2020-02-07 17:20 | disposition home or self-care (01) | DRG 101 ==
LOC: EC 15:35 → 3SCARD 18:05
PROVIDERS: ADMIT Internal Medicine; ATTEND Internal Medicine
DX: G40.89 Other seizures (principal); F10.231 Alcohol dependence with withdrawal delirium; E46 Unspecified protein-calorie malnutrition; E87.2 Acidosis; E87.1 Hypo-osmolality and hyponatremia; G62.1 Alcoholic polyneuropathy; K70.10 Alcoholic hepatitis without ascites; E87.8 Other disorders of electrolyte and fluid balance, not elsewhere classified; Y90.0 Blood alcohol level of less than 20 mg/100 ml; S00.512A Abrasion of oral cavity, initial encounter; Z20.828 Contact with and (suspected) exposure to other viral communicable diseases; D72.829 Elevated white blood cell count, unspecified; K21.9 Gastro-esophageal reflux disease without esophagitis; G89.29 Other chronic pain; M54.5 Low back pain; F32.9 Major depressive disorder, single episode, unspecified; F41.9 Anxiety disorder, unspecified; F17.210 Nicotine dependence, cigarettes, uncomplicated; Z71.6 Tobacco abuse counseling; Z79.899 Other long term (current) drug therapy; Z87.81 Personal history of (healed) traumatic fracture; Z87.438 Personal history of other diseases of male genital organs; Z98.890 Other specified postprocedural states; Z87.828 Personal history of other (healed) physical injury and trauma; Z87.19 Personal history of other diseases of the digestive system; Z88.0 Allergy status to penicillin; Z80.8 Family history of malignant neoplasm of other organs or systems; Z82.3 Family history of stroke
CPT/HCPCS: 36415; 70450; 70551; 71045; 80053; 80061; 80306; 80320; 81001; 83735; 85025; 85027; 93005; 95816; 96361; 96372; 96374; 99285

== ENCOUNTER → 2020-03-06 | Outpatient (CLI) | payer OTHER ==
--- NOTE | 2020-03-06 12:11 | US ---
EXAMINATION TYPE: US liver DATE OF EXAM: 03/06/2020 COMPARISON: None CLINICAL HISTORY: 50-year-old male R74.8 abnormal levels of other serum enzymes. Abnormal labs, pt st ates h/o liver injury via trauma (2011) and ETOH abuse TECHNIQUE: Multiple sonographic images of the right upper quadrant are obtained. FINDINGS: EXAM MEASUREMENTS: Liver Length: 17.1 cm Gallbladder Wall: 0.3 cm CBD: 0.3 cm Right Kidney: 12.7 x 4.1 x 4.9 cm Pancreas: wnl, tail obscured by overlying bowel gas Liver: Echogenic lesion measuring 1.8 x 1.6 cm posterior right liver lobe. Gallbladder : Anterior gallbladder wall polyp measuring 5 mm. No abnormal gallbladder distention, wal l thickening, pericholecystic fluid, or shadowing calculi. Evidence for sonographic Raygoza's sign: No CBD: wnl Right Kidney: Inferior tip lower pole. From bowel gas shadowing. No hydronephrosis. IMPRESSION: 1. A 1.8 cm echogenic lesion of the posterior right liver lobe, possible hemangioma. 3 month follow-u p ultrasound recommended to ensure stability. 2. 5 mm nodular lesion along the anterior gallbladder wall suggesting gallbladder wall polyp. This sh ould also be reassessed in 3 months. 3. No biliary ductal dilatation.
== END | disposition home or self-care (01) ==
LOC: RADUSWWP 10:20
PROVIDERS: ATTEND Family Medicine
DX: K76.9 Liver disease, unspecified (principal)
CPT/HCPCS: 76705

== ENCOUNTER → 2020-04-23 | Outpatient (CLI) | payer OTHER ==
--- NOTE | 2020-04-24 03:24 | MR ---
EXAMINATION TYPE: MR abdomen wo/w con DATE OF EXAM: 04/23/2020 COMPARISON: Ultrasound 03/06/2020 HISTORY: Hemangioma of liver CONTRAST: Standard multiplanar, multisequence MRI departmental protocol utilizing 8.5 mL intravenous Gadavist g adolinium contrast. Liver has normal size and contour. The bile ducts are not dilated. Gallbladder appears normal. Spleen is intact. The pancreas appears normal. Pancreatic duct appears normal. Common bile duct appears nor mal. The stomach appears normal. There is no adrenal mass. Kidneys show satisfactory contrast opacification. There is no hydronephrosi s. There is no evidence of retroperitoneal adenopathy. There is no evidence of ascites. There is no p leural effusion. On the T1 images there is rounded 1.6 cm area of decreased signal in the medial right lobe of the berny er close to the upper pole left kidney. This shows progressive enhancement on the delayed contrast im ages and diagnostic of a hemangioma. The remainder of the liver appears normal. The remainder of exam is unremarkable. IMPRESSION: Hemangioma in the right lobe of the liver not changed in size compared to recent ultrasound exam.
== END | disposition home or self-care (01) ==
LOC: RADMRIMAIN 07:36
PROVIDERS: ATTEND Family Medicine
DX: D18.03 Hemangioma of intra-abdominal structures (principal)
CPT/HCPCS: 74183; A9585

== ENCOUNTER 2020-04-28 10:30 | Day surgery (SDC) | payer OTHER ==
[2020-04-24 10:52] VITALS: BMI 25.0
[2020-04-28 10:53] VITALS: RESP 16; TEMP 98.1
[2020-04-28] MEDS: LACTATED RINGERS 1,000 ML IV SCH ×2 (11:01→11:09)
[2020-04-28] MEDS ORDERED: LIDOCAINE 1% (10MG/ML) FOR IV START INTRADERMA ONE (11:01)
[2020-04-28] MEDS ORDERED: PROPOFOL 10 MG/ML 20 ML VIAL IV ONE (11:10)
--- NOTE | 2020-04-28 11:50 | P.PCN ---
Date of Procedure: 04/28/20 Description of Procedure: BRIEF HISTORY: Patient is a 50-year-old male presenting for outpatient colonoscopy for screening for malignant neoplasm of the colon. No prior colonoscopy. No change in bowel habits. No blood per rectum reported. No family history of colon cancer. PROCEDURE PERFORMED: Colonoscopy with polypectomy. PREOPERATIVE DIAGNOSIS: Screening for malignant neoplasm of the colon. No prior colonoscopy. ESTIMATED BLOOD LOSS: Minimal. IV sedation per Anesthesia. PROCEDURE: After informed consent was obtained, the patient, was brought into the endoscopy unit. IV sedation was administered by Anesthesia under continuous monitoring. Digital rectal examination was normal. Initially the Olympus CF-190 flexible video colonoscope was then inserted in the rectum, gradually advanced into the cecum without any difficulty. Careful examination was performed as the scope was gradually being withdrawn. Ileocecal valve and the appendiceal orifice were visualized and appeared normal. Prep was excellent. Mucosa of the cecum, ascending colon, transverse colon, descending colon, sigmoid colon, and rectum appeared normal, with 2 diminutive polyps measuring 2-3 mm in size removed from the rectum. A few scattered diverticula noted in the sigmoid colon. Retrof lexion was performed in the rectum and no lesions were seen. The patient tolerated the procedure well. IMPRESSION: 2 diminutive rectal polyps removed with cold forcep polypectomy. Mild sigmoid diverticulosis. RECOMMENDATIONS: Findings of this examination were discussed with the patient and his family. Okay to resume diet. Okay to resume medication. Await pathology from polypectomies. Would recommend repeat colonoscopy in 7 years pending pathology from polypectomy.
[2020-04-28 12:40] VITALS: BP 131/74; PULSE 74
== END 2020-04-28 12:49 | disposition home or self-care (01) ==
LOC: ORWHC2ENDO 10:30
PROVIDERS: ATTEND Internal Medicine
DX: Z12.11 Encounter for screening for malignant neoplasm of colon (principal); K62.1 Rectal polyp; K62.3 Rectal prolapse; K57.30 Diverticulosis of large intestine without perforation or abscess without bleeding; K21.9 Gastro-esophageal reflux disease without esophagitis; K08.409 Partial loss of teeth, unspecified cause, unspecified class; F17.210 Nicotine dependence, cigarettes, uncomplicated; Z88.0 Allergy status to penicillin; Z79.899 Other long term (current) drug therapy; Z79.1 Long term (current) use of non-steroidal anti-inflammatories (NSAID); Z98.890 Other specified postprocedural states; Z86.69 Personal history of other diseases of the nervous system and sense organs
CPT/HCPCS: 88305; 45380; J2704

== ENCOUNTER 2020-07-01 11:43 | Emergency (ER) | payer OTHER ==
[2020-07-01 12:10] VITALS: BP 135/88; PULSE 71; RESP 18; TEMP 98.6
[2020-07-01] MEDS ORDERED: LIDOCAINE 1% INJ 10MG/ML (20 ML MDV) SQ ONE (12:42)
[2020-07-01] MEDS ORDERED: BACITRACIN OINT 1 EACH PACKET TOPICAL ONE (12:42)
--- NOTE | 2020-07-01 13:45 | XR ---
10 HISTORY: Laceration, trauma 3 views the left hand Bone mineralization, joint spaces and alignment are maintained. Flake-like without densities are pres ent in the lateral aspect of the second carpophalangeal joint seen best on the oblique view. IMPRESSION: Small radiopaque foreign bodies.
[2020-07-01] MEDS ORDERED: CEPHALEXIN 500MG STARTER PACK 4 CAP BTL PO STA (14:07)
[2020-07-01] MEDS ORDERED: DIPH,PERTUS(ACELL)TETVAC-LF 0.5 ML VIAL IM ONE (14:07)
--- NOTE | 2020-07-01 14:08 | ED ---
Wound/Laceration HPI - General Chief Complaint: Wound/Laceration Stated Complaint: hand lac Time Seen by Provider: 07/01/20 12:25 Source: patient Mode of arrival: ambulatory Limitations: no limitations - History of Present Illness Initial Comments: 50yo presenting today for chief complaint of laceration to left hand. Patient states he cut his left palm with a saw. states his friend put this powder clotting agent from a first aide kit then he came in. Unsure of last tetanus. denies limitation in ROM, denies active bleeding on arrival. Denies injury to other region, states he does not believe there is foreign body. Denies additional complaints. - Related Data Home Medications Medication Instructions Recorded Confirmed traZODone HCL [Desyrel] 100 mg PO HS 02/05/20 04/28/20 Ibuprofen 800 mg PO BID 04/24/20 04/28/20 Mirtazapine [Remeron] 15 mg PO HS 04/24/20 04/28/20 Previous Rx's Medication Instructions Recorded Cephalexin [Keflex] 500 mg PO Q6HR 7 Days #28 cap 07/01/20 Allergies Allergy/AdvReac Type Severity Reaction Status Date / Time Penicillins Allergy Rash/Hives Verified 07/01/20 12:10 Review of Systems ROS Statement: Those systems with pertinent positive or pertinent negative responses have been documented in the HPI. ROS Other: All systems not noted in ROS Statement are negative. Past Medical History Past Medical History: GERD/Reflux Additional Past Medical History / Comment(s): ETOH abuse, low back pain History of Any Multi-Drug Resistant Organisms: None Reported Past Surgical History: Orthopedic Surgery Additional Past Surgical History / Comment(s): 2014 surgery for fractured penis. Pt. states he broke both of his arms and had surgery; states back in 1999- something. States he lacerated his liver. States he fractured all of his ribs back in 2011. Past Anesthesia/Blood Transfusion Reactions: No Reported Reaction Past Psychological History: Anxiety, Depression Smoking Status: Current every day smoker Past Alcohol Use History: None Reported Past Drug Use History: None Reported - Past Family History Father Family Medical History: Cancer Additional Family Medical History / Comment(s): Brain CA and is . Mother Family Medical History: CVA/TIA Additional Family Medical History / Comment(s): Mother is living. General Exam - General Exam Comments Initial Comments: General: The patient is awake and alert, in no distress, and does not appear acutely ill. Eye: Pupils are equal, round and reactive to light, extra-ocular movements are intact. No nystagmus. There is normal conjunctiva bilaterally. No signs of icterus. Ears, nose, mouth and throat: There are moist mucous membranes and no oral lesions. Musculoskeletal: Normal ROM, no tenderness at MCP DIP and PIP joitns of all 5 digits of the left hand. Strength 5/5. Sensation intact. Radial pulses equal bilaterally 2+. Neurological: A&O x 3. CN II-XII intact grossly, There are no obvious motor or sensory deficits. Coordination appears grossly intact. Speech is normal. Skin: Skin is warm and dry and no [id number] laceration left palm lower aspect horizontal orientation. Psychiatric: Cooperative, appropriate mood & affect, normal judgment. Limitations: no limitations Course Vital Signs 07/01/20 12:07 Temperature 98.6 F Pulse Rate 71 Respiratory 18 Rate Blood Pressure 135/88 O2 Sat by Pulse 96 Oximetry Procedures - Laceration Laceration #1 Consent Obtained: verbal consent Indication: laceration Site: hand Size (cm): 7 Description: linear, contaminated Depth: simple, single layer Anesthetic Used: lidocaine 1% Anesthesia Technique: local infiltration Amount (mls): 4 Pre-repair: wound explored, irrigated extensively, deep structures intact, foreign body removed Type of Sutures: nylon Size of Sutures: 5-0 Number of Sutures: 7 Technique: simple, interrupted Patient Tolerated Procedure: well, no complications Medical Decision Making - Medical Decision Making 50-year-old male presenting today for chief complaint of hand laceration. Extensively irrigated and attempt to remove small radiopaque foreign bodies. No obvious foreign body. Patient placed on antibiotics no evidence of tendon injury. Patient's tetanus was updated. Pt discharged appearing well with PCP f/u. Discussed infection risk, return parameters. Disposition Clinical Impression: Hand laceration Disposition: HOME SELF-CARE Condition: Good Instructions (If sedation given, give patient instructions): Care For Your Stitches (ED), Laceration (ED) Additional Instructions: Please use medication as discussed. Please follow-up with family doctor in the next 2 days.a Please return to emergency room if the symptoms increase or worsen or for any other concerns. Prescriptions: Cephalexin [Keflex] 500 mg PO Q6HR 7 Days #28 cap Is patient prescribed a controlled substance at d/c from ED?: No Referrals: Parmjit Rider MD [Primary Care Provider] - 1-2 days Time of Disposition: 14:08
[2020-07-01] MEDS ORDERED: ACET/COD 300 MG/30 MG STARTER PACK 6 TAB BTL PO STA (14:34)
== END 2020-07-01 14:36 | disposition home or self-care (01) ==
LOC: EC 11:43
DX: S61.412A Laceration without foreign body of left hand, initial encounter (principal); F41.9 Anxiety disorder, unspecified; F32.9 Major depressive disorder, single episode, unspecified; F17.200 Nicotine dependence, unspecified, uncomplicated; Z79.899 Other long term (current) drug therapy; Z88.0 Allergy status to penicillin; Z23 Encounter for immunization; W27.0XXA Contact with workbench tool, initial encounter; Y92.009 Unspecified place in unspecified non-institutional (private) residence as the place of occurrence of the external cause
CPT/HCPCS: 73130; 90715; 99283; 90471; 12002; J2001

== ENCOUNTER 2021-10-21 10:09 | Inpatient (IN) | payer OTHER ==
--- NOTE | 2021-10-21 10:26 | ED ---
General Adult HPI - General Chief complaint: Alcohol Stated complaint: Alcohol Withdrawal Time Seen by Provider: 10/21/21 10:16 Source: patient, family Mode of arrival: ambulatory Limitations: no limitations - History of Present Illness Initial comments: This 51-year-old male with past medical history of alcohol use, HIV, Zafar fundoplication presents emergency department with headache 1 month, worsening over the last 2 days along with black tarry stools times one episode yesterday. Patient states his headache is heavy pressure and often feels like it is throbbing. He denies a history of headaches in his past. Patient states he has also noticed a little bit of episodic blurred vision on his headache seems worse. Patient states the headache is worse with bending forward. Patient states his headache is currently [address] that way for the last month. Patient denies any radiation of his headache. Patient denies any double or loss of vision. Patient denies any dizziness, lightheadedness or neck pain. Patient states yesterday when he had a bowel movement noticed he was black. Patient denies ever having this before. Patient states he called his doctor, Dr. Nair this morning to told him to come to the emergency department for labs and evaluation. Patient denies any fevers, chest pain, shortness of breath, abdominal pain, nausea, vomiting, weakness, hemoptysis. - Related Data Home Medications Medication Instructions Recorded Confirmed traZODone HCL [Desyrel] 100 mg PO HS 02/05/20 04/28/20 Ibuprofen 800 mg PO BID 04/24/20 04/28/20 Mirtazapine [Remeron] 15 mg PO HS 04/24/20 04/28/20 Previous Rx's Medication Instructions Recorded Cephalexin [Keflex] 500 mg PO Q6HR 7 Days #28 cap 07/01/20 Allergies Allergy/AdvReac Type Severity Reaction Status Date / Time Penicillins Allergy Rash/Hives Verified 10/21/21 10:13 Review of Systems ROS Statement: Those systems with pertinent positive or pertinent negative responses have been documented in the HPI. ROS Other: All systems not noted in ROS Statement are negative. Past Medical History Past Medical History: GERD/Reflux Additional Past Medical History / Comment(s): ETOH abuse, low back pain History of Any Multi-Drug Resistant Organisms: None Reported Past Surgical History: Orthopedic Surgery Additional Past Surgical History / Comment(s): 2015 surgery for fractured penis. Pt. states he broke both of his arms and had surgery; states back in 1999- something. States he lacerated his liver. States he fractured all of his ribs back in 2011. Past Anesthesia/Blood Transfusion Reactions: No Reported Reaction Past Psychological History: Anxiety, Depression Smoking Status: Current every day smoker Past Alcohol Use History: None Reported Past Drug Use History: None Reported - Past Family History Father Family Medical History: Cancer Additional Family Medical History / Comment(s): Brain CA and is . Mother Family Medical History: CVA/TIA Additional Family Medical History / Comment(s): Mother is living. General Exam Limitations: no limitations General appearance: alert, in no apparent distress Head exam: Present: atraumatic, normocephalic, normal inspection Eye exam: Present: normal appearance, PERRL, EOMI. Absent: scleral icterus, conjunctival injection, periorbital swelling Pupils: Present: normal accommodation ENT exam: Present: mucous membranes moist Neck exam: Present: normal inspection, full ROM. Absent: tenderness, meningismus, lymphadenopathy Respiratory exam: Present: normal lung sounds bilaterally. Absent: respiratory distress, wheezes, rales, rhonchi, stridor Cardiovascular Exam: Present: regular rate, normal rhythm, normal heart sounds. Absent: systolic murmur, diastolic murmur, rubs, gallop, clicks GI/Abdominal exam: Present: soft, normal bowel sounds. Absent: distended, tenderness, guarding, rebound, rigid Rectal exam: Present: normal rectal tone, heme (-) stool. Absent: fecal impaction, hemorrhoids, prostate tenderness Extremities exam: Present: full ROM, normal capillary refill. Absent: tenderness, pedal edema, joint swelling, calf tenderness Back exam: Present: full ROM. Absent: CVA tenderness (R), CVA tenderness (L), paraspinal tenderness, vertebral tenderness Neurological exam: Present: alert, oriented X3, CN II-XII intact Psychiatric exam: Present: normal affect, normal mood Skin exam: Present: warm, dry, intact, normal color. Absent: rash Course Vital Signs 10/21/21 10:09 Temperature 98.1 F Pulse Rate 71 Respiratory 18 Rate Blood Pressure 149/90 O2 Sat by Pulse 98 Oximetry Disposition Referrals: Parmjit Rider MD [Primary Care Provider] - 1-2 days
[2021-10-21] MEDS ORDERED: LORazepam 2 MG/ML INJ IV PRN (10:32)
[2021-10-21] MEDS ORDERED: SODIUM CHLORIDE 0.9% 1,000 ML IV STA (10:32)
[2021-10-21] MEDS ORDERED: ONDANSETRON 4 MG/2 ML VIAL IVP STA (10:48)
--- NOTE | 2021-10-21 10:48 | ED ---
Alcohol HPI - General Chief Complaint: Alcohol Stated Complaint: Alcohol Withdrawal Time Seen by Provider: 10/21/21 10:16 Source: patient, RN notes reviewed Mode of arrival: ambulatory Limitations: no limitations - History of Present Illness Initial Comments: 51-year-old male presents emergency Department with chief complaint of alcohol withdrawal. Patient states that he recently started drinking heavily daily. Patient states that he's been withdrawing as he stretches out drinking yesterday. He states he had a drink something prior to coming because he was shaking, having nausea vomiting patient's had hallucinations and seizures in the past. Patient denies any suicidal or homicidal states that he does have some mild abdominal discomfort. No chest pain or shortness of breath. - Related Data Home Medications Medication Instructions Recorded Confirmed No Known Home Medications 10/21/21 10/21/21 Allergies Allergy/AdvReac Type Severity Reaction Status Date / Time Penicillins Allergy see Verified 10/21/21 11:20 comments Review of Systems ROS Statement: Those systems with pertinent positive or pertinent negative responses have been documented in the HPI. ROS Other: All systems not noted in ROS Statement are negative. Past Medical History Past Medical History: GERD/Reflux Additional Past Medical History / Comment(s): ETOH abuse, low back pain History of Any Multi-Drug Resistant Organisms: None Reported Past Surgical History: Orthopedic Surgery Additional Past Surgical History / Comment(s): 2014 surgery for fractured penis. Pt. states he broke both of his arms and had surgery; states back in 1999- something. States he lacerated his liver. States he fractured all of his ribs back in 2011. Past Anesthesia/Blood Transfusion Reactions: No Reported Reaction Past Psychological History: Anxiety, Depression Smoking Status: Current every day smoker Past Alcohol Use History: None Reported Past Drug Use History: None Reported - Past Family History Father Family Medical History: Cancer Additional Family Medical History / Comment(s): Brain CA and is . Mother Family Medical History: CVA/TIA Additional Family Medical History / Comment(s): Mother is living. General Exam Limitations: no limitations General appearance: alert, in no apparent distress Head exam: Present: atraumatic, normocephalic, normal inspection Eye exam: Present: normal appearance, PERRL, EOMI. Absent: scleral icterus, conjunctival injection, periorbital swelling ENT exam: Present: normal exam, normal oropharynx, mucous membranes moist Neck exam: Present: normal inspection, full ROM. Absent: tenderness, meningismus, lymphadenopathy Respiratory exam: Present: normal lung sounds bilaterally. Absent: respiratory distress, wheezes, rales, rhonchi, stridor Cardiovascular Exam: Present: regular rate, normal rhythm, normal heart sounds. Absent: systolic murmur, diastolic murmur, rubs, gallop, clicks GI/Abdominal exam: Present: soft, normal bowel sounds. Absent: distended, tenderness, guarding, rebound, rigid Neurological exam: Present: alert, oriented X3, CN II-XII intact, reflexes normal. Absent: motor sensory deficit Skin exam: Present: warm, dry, intact, normal color. Absent: rash Course Vital Signs 10/21/21 10:09 Temperature 98.1 F Pulse Rate 71 Respiratory 18 Rate Blood Pressure 149/90 O2 Sat by Pulse 98 Oximetry Medical Decision Making - Medical Decision Making 51-year-old male presented for alcohol withdrawal. Patient was having severe alcohol withdrawal is prior arrival he did supplement with alcohol, calmed some symptoms but continued to have shaking, nausea vomiting patient was medicated patient was placed on around withdrawal protocol - Lab Data Result diagrams: 10/21/21 10:43 10/21/21 10:43 Lab Results 10/21/21 10/21/21 Range/Units 10:43 10:43 WBC 8.5 (3.8-10.6) k/uL RBC 5.23 (4.30-5.90) m/uL Hgb 16.2 (13.0-17.5) gm/dL Hct 49.3 (39.0-53.0) % MCV 94.2 (80.0-100.0) fL MCH 31.1 (25.0-35.0) pg MCHC 33.0 (31.0-37.0) g/dL RDW 14.3 (11.5-15.5) % Plt Count 297 (150-450) k/uL MPV 7.6 Neutrophils % 73 % Lymphocytes % 17 % Monocytes % 6 % Eosinophils % 1 % Basophils % 1 % Neutrophils # 6.2 (1.3-7.7) k/uL Lymphocytes # 1.5 (1.0-4.8) k/uL Monocytes # 0.5 (0-1.0) k/uL Eosinophils # 0.1 (0-0.7) k/uL Basophils # 0.1 (0-0.2) k/uL Sodium 138 (137-145) mmol/L Potassium 4.4 (3.5-5.1) mmol/L Chloride 105 (98-107) mmol/L Carbon Dioxide 23 (22-30) mmol/L Anion Gap 10 mmol/L BUN 12 (9-20) mg/dL Creatinine 0.87 (0.66-1.25) mg/dL Est GFR (CKD-EPI)AfAm >90 (>60 ml/min/1.73 sqM) Est GFR (CKD-EPI)NonAf >90 (>60 ml/min/1.73 sqM) Glucose 101 H (74-99) mg/dL Calcium 9.0 (8.4-10.2) mg/dL Magnesium 1.9 (1.6-2.3) mg/dL Total Bilirubin 0.6 (0.2-1.3) mg/dL AST 141 H (17-59) U/L ALT 131 H (4-49) U/L Alkaline Phosphatase 63 (38-126) U/L Total Protein 7.9 (6.3-8.2) g/dL Albumin 4.8 (3.5-5.0) g/dL Lipase 146 (23-300) U/L Serum Alcohol 283 H* mg/dL Disposition Clinical Impression: Alcohol abuse, Alcoholic intoxication, Alcohol withdrawal, Alcoholic hepatitis Disposition: ADMITTED IP TO THIS HOSP Condition: Fair Referrals: Parmjit Rider MD [Primary Care Provider] - 1-2 days
[2021-10-21] MEDS: LORazepam 2 MG/ML INJ IV PRN ×3 (10:50→21:27)
[2021-10-21 11:08] LABS: Basophils # (A) 0.1 k/uL (0-0.2); Basophils % (A) 1 %; Eosinophils # (A) 0.1 k/uL (0-0.7); Eosinophils % (A) 1 %; HCT 49.3 % (39.0-53.0); HGB 16.2 gm/dL (13.0-17.5); Lymphocytes # (A) 1.5 k/uL (1.0-4.8); Lymphocytes % (A) 17 %; MCH 31.1 pg (25.0-35.0); MCV 94.2 fL (80.0-100.0); Mean Platelet Volume 7.6; Monocytes # (A) 0.5 k/uL (0-1.0); Monocytes % (A) 6 %; Neutrophils # (A) 6.2 k/uL (1.3-7.7); Neutrophils % (A) 73 %; Platelet Count 297 k/uL (150-450); RBC 5.23 m/uL (4.30-5.90); RDW 14.3 % (11.5-15.5); WBC 8.5 k/uL (3.8-10.6)
[2021-10-21 11:21] LABS: ALT 131 U/L (4-49); AST 141 U/L (17-59); African American GFR (CKD) >90 (>60 ml/min/1.73 sqM); Albumin 4.8 g/dL (3.5-5.0); Alkaline Phosphatase 63 U/L (38-126); Anion Gap 10 mmol/L; Blood Urea Nitrogen 12 mg/dL (9-20); Carbon Dioxide 23 mmol/L (22-30); Chloride 105 mmol/L (98-107); Glucose 101 mg/dL (74-99); Lipase 146 U/L (23-300); Magnesium 1.9 mg/dL (1.6-2.3); Non-African American GFR(CKD) >90 (>60 ml/min/1.73 sqM); Potassium 4.4 mmol/L (3.5-5.1); Sodium 138 mmol/L (137-145); Total Bilirubin 0.6 mg/dL (0.2-1.3); Total Protein 7.9 g/dL (6.3-8.2)
[2021-10-21 11:28] LABS: Alcohol 283 mg/dL
[2021-10-21] MEDS ORDERED: NALOXONE 0.4 MG/ML 1 ML VIAL IV PRN ×2 (12:22→14:04)
[2021-10-21] MEDS ORDERED: ONDANSETRON 4 MG/2 ML VIAL IVP PRN (12:22)
[2021-10-21] MEDS ORDERED: LACTULOSE 20 GM/30 ML CUP PO PRN (14:04)
[2021-10-21] MEDS ORDERED: Acetaminophen-Codeine 300-30mg TAB PO PRN (14:04)
--- NOTE | 2021-10-21 14:26 | P.HPIM ---
History of Present Illness H&P Date: 10/21/21 Chief Complaint: Alcohol withdrawal symptoms 51-year-old male with past medical history significant for anxiety and depression. Patient he stated that he has been alcoholic since he was 12 years old. He stated that he has been sober but he relapsed one and half and 2 years ago when he stopped taking his psych medications. He drinks a fifth appliance of vodka every day with 6-7 packs appear daily. He presented to emergency Department with chief complaint of alcohol withdrawal. Patient states that he recently started drinking heavily daily. Patient states that he's been withdrawing as he stretches out drinking yesterday. He states he had a drink something prior to coming because he was shaking, having nausea vomiting patient's had hallucinations and seizures in the past. Patient denies any suicidal or homicidal states that he does have some mild abdominal discomfort. No chest pain or shortness of breath. Review of Systems All 14 review of systems evaluated and all negative except for above. Past Medical History Past Medical History: GERD/Reflux Additional Past Medical History / Comment(s): ETOH abuse, low back pain History of Any Multi-Drug Resistant Organisms: None Reported Past Surgical History: Orthopedic Surgery Additional Past Surgical History / Comment(s): 2014 surgery for fractured penis. Pt. states he broke both of his arms and had surgery; states back in 1999-. States he lacerated his liver. States he fractured all of his ribs back in 2011. Past Anesthesia/Blood Transfusion Reactions: No Reported Reaction Past Psychological History: Anxiety, Depression Smoking Status: Current every day smoker Past Alcohol Use History: None Reported Past Drug Use History: None Reported - Past Family History Father Family Medical History: Cancer Additional Family Medical History / Comment(s): Brain CA and is . Mother Family Medical History: CVA/TIA Additional Family Medical History / Comment(s): Mother is living. Medications and Allergies Home Medications Medication Instructions Recorded Confirmed Type No Known Home Medications 10/21/21 10/21/21 History Allergies Allergy/AdvReac Type Severity Reaction Status Date / Time Penicillins Allergy see Verified 10/21/21 11:20 comments Physical Exam Vitals: Vital Signs Temp Pulse Resp BP Pulse Ox 10/21/21 10:09 98.1 F 71 18 149/90 98 Intake and Output 10/20/21 10/21/21 10/21/21 22:59 06:59 14:59 Other: Weight 90.718 kg General: non toxic, no distress, appears at stated age Derm: warm, dry Head: atraumatic, normocephalic, symmetric Eyes: EOMI, no lid lag, anicteric sclera Mouth: no lip lesion, mucus membranes moist Cardiovascular: S1S2 reg, no murmur, positive posterior tibial pulse bilateral, Lungs: CTA bilateral, no rhonchi, no rales , no accessory muscle use Abdominal: soft, nontender to palpation, no guarding, no appreciable organomegaly Ext: no gross muscle atrophy, no edema, no contractures Neuro: CN II-XI grossly intact, no focal neuro deficits Psych: Alert, oriented, appropriate affect Results CBC & Chem 7: 10/21/21 10:43 10/21/21 10:43 Labs: Abnormal Lab Results - Last 24 Hours (Table) 10/21/21 Range/Units 10:43 Glucose 101 H (74-99) mg/dL AST 141 H (17-59) U/L ALT 131 H (4-49) U/L Serum Alcohol 283 H* mg/dL Assessment and Plan Assessment: #Alcohol withdrawal #Alcohol dependence -[facility] protocol -Ativan as needed -Multivitamin thiamine and folic acid -Supportive care -If fluids -rack production worker consult #Ongoing tobacco abuse -Nicotine patch #Elevated LFTs secondary to alcoholic dependence #Anxiety depression #DVT prophylaxis with Lovenox
[2021-10-21] MEDS: NICOTINE 21MG/24HR PATCH TRANSDERM SCH (16:37)
[2021-10-21] MEDS: FAMOTIDINE 20 MG TAB PO SCH (16:37)
[2021-10-21] MEDS: SODIUM CHLORIDE 0.9% 1,000 ML IV SCH (17:20)
[2021-10-21] MEDS ORDERED: THIAMINE 100 MG TAB PO SCH (17:30)
[2021-10-22 02:56] LABS: Hepatitis A Antibody IgM Nonreactive (Nonreactive); Hepatitis B Core IgM Nonreactive (Nonreactive); Hepatitis B Surface Antigen Nonreactive (Nonreactive); Hepatitis C IgG Antibody Nonreactive (Nonreactive)
[2021-10-22] MEDS: LORazepam 2 MG/ML INJ IV PRN ×7 (04:39→22:39)
[2021-10-22 07:14] LABS: Basophils # (A) 0.1 k/uL (0-0.2); Basophils % (A) 1 %; Eosinophils # (A) 0.1 k/uL (0-0.7); Eosinophils % (A) 1 %; HCT 44.2 % (39.0-53.0); HGB 14.5 gm/dL (13.0-17.5); Lymphocytes # (A) 1.1 k/uL (1.0-4.8); Lymphocytes % (A) 12 %; MCH 31.2 pg (25.0-35.0); MCHC 32.8 g/dL (31.0-37.0); MCV 95.2 fL (80.0-100.0); Mean Platelet Volume 8.1; Monocytes # (A) 0.6 k/uL (0-1.0); Monocytes % (A) 6 %; Neutrophils # (A) 7.2 k/uL (1.3-7.7); Neutrophils % (A) 79 %; Platelet Count 241 k/uL (150-450); RBC 4.64 m/uL (4.30-5.90); RDW 14.2 % (11.5-15.5); WBC 9.1 k/uL (3.8-10.6)
[2021-10-22 07:37] LABS: ALT 102 U/L (4-49); AST 95 U/L (17-59); African American GFR (CKD) >90 (>60 ml/min/1.73 sqM); Albumin 3.8 g/dL (3.5-5.0); Alkaline Phosphatase 52 U/L (38-126); Anion Gap 7 mmol/L; Blood Urea Nitrogen 13 mg/dL (9-20); Calcium 8.5 mg/dL (8.4-10.2); Carbon Dioxide 22 mmol/L (22-30); Chloride 108 mmol/L (98-107); Glucose 79 mg/dL (74-99); Magnesium 1.9 mg/dL (1.6-2.3); Non-African American GFR(CKD) >90 (>60 ml/min/1.73 sqM); Potassium 4.4 mmol/L (3.5-5.1); Sodium 137 mmol/L (137-145); Total Protein 6.4 g/dL (6.3-8.2)
[2021-10-22] MEDS ORDERED: PANTOPRAZOLE 40 MG/10 ML VIAL IV SCH (09:00)
[2021-10-22] MEDS ORDERED: NICOTINE 14MG/24HR PATCH TRANSDERM SCH (09:00)
[2021-10-22] MEDS: ENOXAPARIN 40 MG/0.4 ML SYRINGE SQ SCH (09:16)
[2021-10-22] MEDS: FOLIC ACID 1 MG TAB PO SCH (09:16)
[2021-10-22] MEDS: FAMOTIDINE 20 MG TAB PO SCH ×2 (09:16→20:02)
[2021-10-22] MEDS: MULTIVITAMINS, THERA 1 EACH TAB PO SCH (09:16)
[2021-10-22] MEDS: THIAMINE 100 MG TAB PO SCH (09:16)
[2021-10-22] MEDS: NICOTINE 21MG/24HR PATCH TRANSDERM SCH (09:17)
--- NOTE | 2021-10-22 14:37 | P.PN ---
Subjective Progress Note Date: 10/22/21 Chief Complaint: Alcohol withdrawal symptoms History of present illness per H&P 51-year-old male with past medical history significant for anxiety and dep ression. Patient he stated that he has been alcoholic since he was 12 years old. He stated that he has been sober but he relapsed one and half and 2 years ago when he stopped taking his psych medications. He drinks a fifth appliance of vodka every day with 6-7 packs appear daily. He presented to emergency Department with chief complaint of alcohol withdrawal. Patient states that he recently started drinking heavily daily. Patient states that he's been withdrawing as he stretches out drinking yesterday. He states he had a drink something prior to coming because he was shaking, having nausea vomiting patient's had hallucinations and seizures in the past. Patient denies any suicidal or homicidal states that he does have some mild abdominal discomfort. No chest pain or shortness of breath. Interval history: #Examined at the bedside. Still complains of tremors and shakes. He still alert oriented 3. No acute changes overnight. Objective - Vital Signs Vital signs: Vital Signs Temp 98.3 F 10/22/21 13:18 Pulse 82 10/22/21 13:18 Resp 18 10/22/21 13:18 BP 148/88 10/22/21 13:18 Pulse Ox 97 10/22/21 13:18 Intake & Output 10/21/21 10/22/21 10/22/21 18:59 06:59 18:59 Intake Total 118 Balance 118 Weight 90.718 kg Intake: Oral 118 Other: # Voids 2 - Exam General: [non toxic], [no distress], [appears at stated age] Derm: [warm], [dry] Head: [atraumatic], [normocephalic], [symmetric] Eyes: [EOMI], [no lid lag], [anicteric sclera] Mouth: [no lip lesion], [mucus membranes moist] Cardiovascular: [S1S2 reg], [no murmur], [positive posterior tibial pulse bilateral], Lungs: [CTA bilateral], [no rhonchi, no rales] , [no accessory muscle use] Abdominal: [soft], [ nontender to palpation], [no guarding], [no appreciable organomegaly] Ext: [no gross muscle atrophy], [no edema], [no contractures] Neuro: [ CN II-XI grossly intact], [no focal neuro deficits] Psych: [Alert], [oriented], [appropriate affect] - Labs CBC & Chem 7: 10/22/21 06:31 10/22/21 06:31 Labs: Abnormal Lab Results - Last 24 Hours (Table) 10/22/21 Range/Units 06:31 Chloride 108 H (98-107) mmol/L AST 95 H (17-59) U/L ALT 102 H (4-49) U/L Assessment and Plan Assessment: #Alcohol withdrawal #Alcohol dependence -[facility] protocol -Ativan as needed -Multivitamin thiamine and folic acid -Supportive care -If fluids -solid waste collection worker consult #Ongoing tobacco abuse -Nicotine patch #Elevated LFTs secondary to alcoholic dependence -Secondary to alcoholic hepatitis -LFTs trending down -Negative hepatitis panel #Anxiety depression -Patient has been off medications for over a year #DVT prophylaxis with Lovenox
[2021-10-22] MEDS: SODIUM CHLORIDE 0.9% 1,000 ML IV SCH ×2 (16:20→16:21)
[2021-10-23] MEDS: LORazepam 2 MG/ML INJ IV PRN ×6 (01:57→22:23)
[2021-10-23] MEDS: SODIUM CHLORIDE 0.9% 1,000 ML IV SCH ×2 (06:34→11:43)
[2021-10-23] MEDS: PANTOPRAZOLE 40 MG TABLET PO SCH (06:34)
[2021-10-23 07:48] LABS: Basophils # (A) 0.1 k/uL (0-0.2); Basophils % (A) 1 %; Eosinophils # (A) 0.2 k/uL (0-0.7); Eosinophils % (A) 2 %; HCT 46.9 % (39.0-53.0); HGB 15.2 gm/dL (13.0-17.5); Lymphocytes # (A) 1.1 k/uL (1.0-4.8); Lymphocytes % (A) 13 %; MCH 30.8 pg (25.0-35.0); MCHC 32.4 g/dL (31.0-37.0); MCV 95.1 fL (80.0-100.0); Mean Platelet Volume 8.2; Monocytes # (A) 0.5 k/uL (0-1.0); Monocytes % (A) 6 %; Neutrophils # (A) 6.7 k/uL (1.3-7.7); Neutrophils % (A) 77 %; Platelet Count 259 k/uL (150-450); RBC 4.93 m/uL (4.30-5.90); RDW 14.5 % (11.5-15.5); WBC 8.7 k/uL (3.8-10.6)
[2021-10-23 07:55] LABS: ALT 102 U/L (4-49); AST 81 U/L (17-59); African American GFR (CKD) >90 (>60 ml/min/1.73 sqM); Alkaline Phosphatase 51 U/L (38-126); Anion Gap 5 mmol/L; Blood Urea Nitrogen 14 mg/dL (9-20); Calcium 9.1 mg/dL (8.4-10.2); Carbon Dioxide 22 mmol/L (22-30); Chloride 106 mmol/L (98-107); Glucose 88 mg/dL (74-99); Magnesium 1.9 mg/dL (1.6-2.3); Non-African American GFR(CKD) >90 (>60 ml/min/1.73 sqM); Potassium 4.1 mmol/L (3.5-5.1); Sodium 133 mmol/L (137-145); Total Protein 6.7 g/dL (6.3-8.2)
[2021-10-23] MEDS: MULTIVITAMINS, THERA 1 EACH TAB PO SCH (08:28)
[2021-10-23] MEDS: FAMOTIDINE 20 MG TAB PO SCH ×2 (08:28→20:21)
[2021-10-23] MEDS: FOLIC ACID 1 MG TAB PO SCH (08:28)
[2021-10-23] MEDS: ENOXAPARIN 40 MG/0.4 ML SYRINGE SQ SCH (08:28)
[2021-10-23] MEDS: THIAMINE 100 MG TAB PO SCH (08:28)
[2021-10-23] MEDS: NICOTINE 21MG/24HR PATCH TRANSDERM SCH (08:32)
--- NOTE | 2021-10-23 16:12 | P.PN ---
Subjective Progress Note Date: 10/23/21 Chief Complaint: Alcohol withdrawal symptoms History of present illness per H&P 51-year-old male with past medical history significant for anxiety and dep ression. Patient he stated that he has been alcoholic since he was 12 years old. He stated that he has been sober but he relapsed one and half and 2 years ago when he stopped taking his psych medications. He drinks a fifth appliance of vodka every day with 6-7 packs appear daily. He presented to emergency Department with chief complaint of alcohol withdrawal. Patient states that he recently started drinking heavily daily. Patient states that he's been withdrawing as he stretches out drinking yesterday. He states he had a drink something prior to coming because he was shaking, having nausea vomiting patient's had hallucinations and seizures in the past. Patient denies any suicidal or homicidal states that he does have some mild abdominal discomfort. No chest pain or shortness of breath. Interval history: #Examined at the bedside. Still complains of tremors and shakes. He still alert oriented 3. No acute changes overnight. Objective - Vital Signs Vital signs: Vital Signs Temp 98.0 F 10/23/21 08:33 Pulse 79 10/23/21 08:33 Resp 18 10/23/21 14:56 BP 134/79 10/23/21 08:33 Pulse Ox 97 10/23/21 08:33 Intake & Output 10/22/21 10/23/21 10/23/21 18:59 06:59 18:59 Intake Total 358 1080 118 Balance 358 1080 118 Intake: Oral 358 1080 118 Other: Voiding Method Urinal Urinal Urinal # Bowel Movements 0 - Exam General: [non toxic], [no distress], [appears at stated age] Derm: [warm], [dry] Head: [atraumatic], [normocephalic], [symmetric] Eyes: [EOMI], [no lid lag], [anicteric sclera] Mouth: [no lip lesion], [mucus membranes moist] Cardiovascular: [S1S2 reg], [no murmur], [positive posterior tibial pulse bilateral], Lungs: [CTA bilateral], [no rhonchi, no rales] , [no accessory muscle use] Abdominal: [soft], [ nontender to palpation], [no guarding], [no appreciable organomegaly] Ext: [no gross muscle atrophy], [no edema], [no contractures] Neuro: [ CN II-XI grossly intact], [no focal neuro deficits] Psych: [Alert], [oriented], [appropriate affect] - Labs CBC & Chem 7: 10/23/21 07:19 10/23/21 07:19 Labs: Abnormal Lab Results - Last 24 Hours (Table) 10/23/21 Range/Units 07:19 Sodium 133 L (137-145) mmol/L AST 81 H (17-59) U/L ALT 102 H (4-49) U/L Assessment and Plan Assessment: #Alcohol withdrawal #Alcohol dependence -[facility] protocol -Ativan as needed -Multivitamin thiamine and folic acid -Supportive care -If fluids -dish room worker consult #Ongoing tobacco abuse -Nicotine patch #Elevated LFTs secondary to alcoholic dependence -Secondary to alcoholic hepatitis -LFTs trending down -Negative hepatitis panel #Anxiety depression -Patient has been off medications for over a year #DVT prophylaxis with Lovenox
[2021-10-24] MEDS: SODIUM CHLORIDE 0.9% 1,000 ML IV SCH ×2 (06:01→10:25)
[2021-10-24] MEDS: PANTOPRAZOLE 40 MG TABLET PO SCH (06:01)
[2021-10-24] MEDS: ENOXAPARIN 40 MG/0.4 ML SYRINGE SQ SCH (09:11)
[2021-10-24] MEDS: NICOTINE 21MG/24HR PATCH TRANSDERM SCH (09:11)
[2021-10-24] MEDS: FOLIC ACID 1 MG TAB PO SCH (09:11)
[2021-10-24] MEDS: MULTIVITAMINS, THERA 1 EACH TAB PO SCH (09:11)
[2021-10-24] MEDS: THIAMINE 100 MG TAB PO SCH (09:11)
[2021-10-24] MEDS: FAMOTIDINE 20 MG TAB PO SCH (09:11)
[2021-10-24 09:16] VITALS: BP 113/64; PULSE 64; RESP 18; TEMP 97.8
[2021-10-24] MEDS: LORazepam 2 MG/ML INJ IV PRN (09:20)
[2021-10-24 09:39] LABS: Basophils % (A) 1 %; Eosinophils # (A) 0.2 k/uL (0-0.7); Eosinophils % (A) 2 %; HCT 46.4 % (39.0-53.0); HGB 15.2 gm/dL (13.0-17.5); Lymphocytes # (A) 1.3 k/uL (1.0-4.8); Lymphocytes % (A) 17 %; MCHC 32.8 g/dL (31.0-37.0); MCV 94.4 fL (80.0-100.0); Mean Platelet Volume 8.5; Monocytes # (A) 0.5 k/uL (0-1.0); Monocytes % (A) 6 %; Neutrophils # (A) 5.6 k/uL (1.3-7.7); Neutrophils % (A) 72 %; Platelet Count 211 k/uL (150-450); RBC 4.91 m/uL (4.30-5.90); RDW 14.5 % (11.5-15.5); WBC 7.8 k/uL (3.8-10.6)
[2021-10-24 09:50] LABS: ALT 103 U/L (4-49); AST 75 U/L (17-59); African American GFR (CKD) >90 (>60 ml/min/1.73 sqM); Alkaline Phosphatase 52 U/L (38-126); Anion Gap 7 mmol/L; Blood Urea Nitrogen 16 mg/dL (9-20); Calcium 9.2 mg/dL (8.4-10.2); Carbon Dioxide 25 mmol/L (22-30); Chloride 105 mmol/L (98-107); Glucose 98 mg/dL (74-99); Non-African American GFR(CKD) 90 (>60 ml/min/1.73 sqM); Potassium 4.1 mmol/L (3.5-5.1); Sodium 137 mmol/L (137-145); Total Bilirubin 0.8 mg/dL (0.2-1.3); Total Protein 6.7 g/dL (6.3-8.2)
--- NOTE | 2021-10-24 15:23 | P.DS ---
Providers Date of admission: 10/21/21 14:04 Expected date of discharge: 10/24/21 Attending physician: Melinda Pereira DO Primary care physician: Parmjit Rider [facility] Course: History of present illness per H&P 51-year-old male with past medical history significant for anxiety and depression. Patient he stated that he has been alcoholic since he was 12 years old. He stated that he has been sober but he relapsed one and half and 2 years ago when he stopped taking his psych medications. He drinks a fifth appliance of vodka every day with 6-7 packs appear daily. He presented to emergency Department with chief complaint of alcohol withdrawal. Patient states that he recently started drinking heavily daily. Patient states that he's been withdrawing as he stretches out drinking yesterday. He states he had a drink something prior to coming because he was shaking, having nausea vomiting patient's had hallucinations and seizures in the past. Patient denies any suicidal or homicidal states that he does have some mild abdominal discomfort. No chest pain or shortness of breath. #Alcohol withdrawal #Alcohol dependence -Patient has been stable for the past 48 hours without any signs of active alcohol withdrawal. Plan to discharge home today -[facility] protocol -Ativan as needed -Multivitamin thiamine and folic acid -Supportive care -If fluids -delinquency prevention social worker consult #Ongoing tobacco abuse -Nicotine patch #Elevated LFTs secondary to alcoholic dependence -Secondary to alcoholic hepatitis -LFTs trending down -Negative hepatitis panel #Anxiety depression -Patient has been off medications for over a year Time spent in discharge process 35 minutes - Exam General: [non toxic], [no distress], [appears at stated age] Derm: [warm], [dry] Head: [atraumatic], [normocephalic], [symmetric] Eyes: [EOMI], [no lid lag], [anicteric sclera] Mouth: [no lip lesion], [mucus membranes moist] Cardiovascular: [S1S2 reg], [no murmur], [positive posterior tibial pulse bilateral], Lungs: [CTA bilateral], [no rhonchi, no rales] , [no accessory muscle use] Abdominal: [soft], [ nontender to palpation], [no guarding], [no appreciable organomegaly] Ext: [no gross muscle atrophy], [no edema], [no contractures] Neuro: [ CN II-XI grossly intact], [no focal neuro deficits] Psych: [Alert], [oriented], [appropriate affect] Patient Condition at Discharge: Serious Plan - Discharge Summary Discharge Rx Participant: No New Discharge Prescriptions: No Action No Known Home Medications Discharge Medication List No Known Home Medications 10/21/21 [History] Follow up Appointment(s)/Referral(s): Parmjit Rider MD [Primary Care Provider] - 1-2 days (Call monday to schedule follow up. ) Patient Instructions/Handouts: Abuse of Alcohol (GEN) Discharge/Stand Alone Forms: AA Meetings [place], Who Do I Call?, Community Resources, Outpatient Counseling, Personal Button Maker Discharge Disposition: HOME SELF-CARE
== END 2021-10-24 13:25 | disposition home or self-care (01) | DRG 897 ==
LOC: EC 10:09 → 6NMEDSUR 12:22 → OBSVTOIN 14:04 → 6NMEDSUR 14:58 → 4SSUR 20:28 → 3SCARD 20:35
PROVIDERS: ADMIT Internal Medicine; ATTEND Internal Medicine
DX: F10.239 Alcohol dependence with withdrawal, unspecified (principal); F17.200 Nicotine dependence, unspecified, uncomplicated; F41.8 Other specified anxiety disorders; K70.10 Alcoholic hepatitis without ascites; Z80.8 Family history of malignant neoplasm of other organs or systems; Z82.3 Family history of stroke; K21.9 Gastro-esophageal reflux disease without esophagitis; F10.229 Alcohol dependence with intoxication, unspecified; R79.89 Other specified abnormal findings of blood chemistry
CPT/HCPCS: 36415; 80053; 80074; 80320; 83690; 83735; 85025; 96361; 96374; 96376; 99285

== ENCOUNTER 2021-12-03 12:52 | Emergency (ER) | payer OTHER ==
[2021-12-03 13:25] VITALS: RESP 18; TEMP 98
[2021-12-03] MEDS ORDERED: BACITRACIN OINT 1 EACH PACKET TOPICAL ONE (14:16)
[2021-12-03] MEDS ORDERED: LIDOCAINE 1% INJ 10MG/ML (20 ML MDV) SQ ONE (14:16)
[2021-12-03] MEDS ORDERED: ACET/COD 300 MG/30 MG STARTER PACK 6 TAB BTL PO STA (15:19)
--- NOTE | 2021-12-03 15:22 | ED ---
General Adult HPI - General Chief complaint: Wound/Laceration Stated complaint: Lt Hand Lac Time Seen by Provider: 12/03/21 13:49 Source: patient Mode of arrival: ambulatory Limitations: no limitations - History of Present Illness Initial comments: This 51-year-old male presents emergency Department with laceration to his left hand. Patient states he was at work and sliced his hand with a razor blade. Patient states he is up-to-date on his tetanus vaccination. Patient denies being on any anti-coagulant medications or blood thinners. Patient denies any loss of range of motion and states his. He does feel little bit tingly, however he does have full sensation in his fingers and hand. Patient states he does have some pain that is approximately 7/10. Patient states this happened around 10:00 AM. Patient denies any chest pain or shortness of breath, abdominal pain, nausea, vomiting, headache, lightheadedness, dizziness, change in bowel or bladder, change in appetite. - Related Data Previous Rx's Medication Instructions Recorded Cephalexin [Keflex] 500 mg PO Q6HR #20 cap 12/03/21 Allergies Allergy/AdvReac Type Severity Reaction Status Date / Time Penicillins Allergy see Verified 12/03/21 13:25 comments Review of Systems ROS Statement: Those systems with pertinent positive or pertinent negative responses have been documented in the HPI. ROS Other: All systems not noted in ROS Statement are negative. Past Medical History Past Medical History: GERD/Reflux Additional Past Medical History / Comment(s): ETOH abuse with past withdrawals of tremors/hallucinations/seizure, low back pain, multiple fractures/liver laceration pt states all work related. History of Any Multi-Drug Resistant Organisms: None Reported Past Surgical History: Orthopedic Surgery Additional Past Surgical History / Comment(s): Bilateral arm fractures with surgical repair, penile fracture with repair, colonoscopy. Past Anesthesia/Blood Transfusion Reactions: No Reported Reaction Past Psychological History: Anxiety, Depression Smoking Status: Current every day smoker Past Alcohol Use History: Abuse, Daily, Heavy Past Drug Use History: None Reported - Past Family History Father Family Medical History: Cancer Additional Family Medical History / Comment(s): Brain CA and is . Mother Family Medical History: CVA/TIA Additional Family Medical History / Comment(s): Mother is living. General Exam Limitations: no limitations General appearance: alert, in no apparent distress Head exam: Present: atraumatic, normocephalic, normal inspection Eye exam: Present: normal appearance, PERRL, EOMI. Absent: scleral icterus, conjunctival injection, periorbital swelling Pupils: Present: normal accommodation ENT exam: Present: normal exam, mucous membranes moist Neck exam: Present: normal inspection, full ROM. Absent: tenderness, meningismus, lymphadenopathy Respiratory exam: Present: normal lung sounds bilaterally. Absent: respiratory distress, wheezes, rales, rhonchi, stridor Cardiovascular Exam: Present: regular rate, normal rhythm, normal heart sounds. Absent: systolic murmur, diastolic murmur, rubs, gallop, clicks GI/Abdominal exam: Present: soft, normal bowel sounds. Absent: distended, tenderness, guarding, rebound, rigid Extremities exam: Present: normal inspection (Radial and ulnar pulses palpable bilaterally. 7 cm laceration to medial sided left palm below the pinky in the shape of a half-lower sioux), full ROM, normal capillary refill (Patient with full range of motion and sensation to left hand and fingers), other (Radial and ulnar pulses palpable bilaterally. 7 cm laceration to medial sided left palm below the pinky in the shape of a half-lower sioux) Neurological exam: Present: alert, oriented X3, CN II-XII intact Psychiatric exam: Present: normal affect, normal mood Course Vital Signs 12/03/21 13:23 Temperature 98 F Pulse Rate 100 Respiratory 18 Rate Blood Pressure 111/73 O2 Sat by Pulse 95 Oximetry Procedures - Laceration Laceration #1 Consent Obtained: verbal consent Indication: laceration Site: other (hand) Size (cm): 7 Description: stellate Depth: simple, single layer Anesthetic Used: lidocaine 1% Pre-repair: irrigated extensively Type of Sutures: nylon Size of Sutures: 5-0 Number of Sutures: 14 Technique: simple, interrupted Patient Tolerated Procedure: well, no complications Medical Decision Making - Medical Decision Making This 51-year-old male presents emergency department with 7 cm laceration to left hand. 14 5-0 sutures were placed. Hemostasis obtained. Patient with full range of motion and sensation. Patient given Tylenol 3 and Keflex for 5 days. Instructed patient to return to the emergency department on 12/09/21 to have sutures removed. Strict return precautions were discussed. Patient verbally agree to plan. Patient sent home in stable condition. Case discussed in detail with my attending, . Disposition Clinical Impression: Laceration of left hand Disposition: HOME SELF-CARE Condition: Stable Instructions (If sedation given, give patient instructions): Care For Your Stitches (ED), Laceration (ED) Additional Instructions: Please follow-up with their primary care provider next 1-2 days. Return to have sutures removed on 11/08/21. Take Keflex as directed. Take Tylenol 3 as directed. Return to the emergency department with any new, worsening, or concerning symptoms. Prescriptions: Cephalexin [Keflex] 500 mg PO Q6HR #20 cap Is patient prescribed a controlled substance at d/c from ED?: No Referrals: Parmjit Rider MD [Primary Care Provider] - 1-2 days Time of Disposition: 15:27
[2021-12-03 15:46] VITALS: BP 121/72; PULSE 84
== END 2021-12-03 15:45 | disposition home or self-care (01) ==
LOC: EC 12:52
DX: S61.412A Laceration without foreign body of left hand, initial encounter (principal); F17.200 Nicotine dependence, unspecified, uncomplicated; W26.8XXA Contact with other sharp object(s), not elsewhere classified, initial encounter; Y99.0 Civilian activity done for income or pay
CPT/HCPCS: 12002; 99282; J2001

== ENCOUNTER → 2022-03-14 | Outpatient (CLI) | payer OTHER ==
--- NOTE | 2022-03-15 08:52 | US ---
EXAMINATION TYPE: US abdomen limited DATE OF EXAM: 03/14/2022 COMPARISON: NONE CLINICAL HISTORY: F10.20 ALCOHOL DEPENDENCE. elevated liver enzymes TECHNIQUE: Multiple sonographic images of the right upper quadrant are obtained. FINDINGS: EXAM MEASUREMENTS: Liver Length: 18.3 cm Gallbladder Wall: 0.2 cm CBD: 0.5 cm Right Kidney: 12.2 x 5.8 x 6.2 cm MATERIAL ASSEMBLER NOTES: Pancreas: not seen due to bowel gas Liver: heterogeneous, difficult to penetrate Gallbladder: wnl Evidence for sonographic Raygoza's sign: no CBD: wnl Right Kidney: wnl IMPRESSION: Hepatomegaly with mild fatty infiltration of liver.
== END | disposition home or self-care (01) ==
LOC: RADUSWWP 15:39
PROVIDERS: ATTEND Family Medicine
DX: F10.20 Alcohol dependence, uncomplicated (principal); K76.0 Fatty (change of) liver, not elsewhere classified
CPT/HCPCS: 76705

== ENCOUNTER 2022-04-04 19:40 | Emergency (ER) | payer OTHER ==
[2022-04-04 20:26] VITALS: BP 114/73; PULSE 96; RESP 16; TEMP 98.2
[2022-04-04] MEDS ORDERED: SODIUM CHLORIDE 0.9% 1,000 ML IV ONE (22:57)
--- NOTE | 2022-04-04 23:23 | ED ---
General Adult HPI - General Chief complaint: Alcohol Stated complaint: hallucinations Time Seen by Provider: 04/04/22 22:44 Source: patient, RN notes reviewed, old records reviewed Mode of arrival: ambulatory Limitations: no limitations - History of Present Illness Initial comments: 52-year-old male presenting with alcohol intoxication. Patient has had history with alcohol abuse for some time. He's attempted rehabilitation in the past. Patient presents with request for medical detox and concern for alcohol withdrawal seizures in the past. His been no seizure activity. He has attempted rehab with [facility] in the past. - Related Data Previous Rx's Medication Instructions Recorded Cephalexin [Keflex] 500 mg PO Q6HR #20 cap 12/03/21 Allergies Allergy/AdvReac Type Severity Reaction Status Date / Time Penicillins Allergy see Verified 12/03/21 13:25 comments Review of Systems ROS Statement: Those systems with pertinent positive or pertinent negative responses have been documented in the HPI. ROS Other: All systems not noted in ROS Statement are negative. Past Medical History Past Medical History: GERD/Reflux Additional Past Medical History / Comment(s): ETOH abuse with past withdrawals of tremors/hallucinations/seizure, low back pain, multiple fractures/liver laceration pt states all work related. History of Any Multi-Drug Resistant Organisms: None Reported Past Surgical History: Orthopedic Surgery Additional Past Surgical History / Comment(s): Bilateral arm fractures with surgical repair, penile fracture with repair, colonoscopy. Past Anesthesia/Blood Transfusion Reactions: No Reported Reaction Past Psychological History: Anxiety, Depression Smoking Status: Current every day smoker Past Alcohol Use History: Abuse, Daily, Heavy Past Drug Use History: None Reported - Past Family History Father Family Medical History: Cancer Additional Family Medical History / Comment(s): Brain CA and is . Mother Family Medical History: CVA/TIA Additional Family Medical History / Comment(s): Mother is living. General Exam Limitations: no limitations General appearance: appears intoxicated Head exam: Present: atraumatic, normocephalic Eye exam: Present: normal appearance, PERRL ENT exam: Present: normal exam Neck exam: Present: normal inspection. Absent: tenderness, meningismus Respiratory exam: Present: normal lung sounds bilaterally. Absent: respiratory distress, wheezes Cardiovascular Exam: Present: regular rate, normal rhythm GI/Abdominal exam: Present: soft. Absent: distended, tenderness, guarding Extremities exam: Present: normal inspection, normal capillary refill Neurological exam: Present: alert, CN II-XII intact. Absent: motor sensory deficit Skin exam: Present: warm, dry, intact. Absent: cyanosis, diaphoretic Course Vital Signs 04/04/22 20:22 Temperature 98.2 F Pulse Rate 96 Respiratory 16 Rate Blood Pressure 114/73 O2 Sat by Pulse 97 Oximetry Medical Decision Making - Medical Decision Making IV as well as laboratory testing including CBC, CMP, magnesium and alcohol level was ordered on this patient. Prior to obtaining laboratory testing or receiving any treatment the patient eloped without my knowledge. He was accompanied by his who was sober Disposition Clinical Impression: Alcoholic intoxication Disposition: Left Against Medical Advice Condition: Undetermined Is patient prescribed a controlled substance at d/c from ED?: No Referrals: Parmjit Rider MD [Primary Care Provider] - 1-2 days
== END 2022-04-04 23:45 | disposition left against medical advice (07) ==
LOC: EC 19:40
DX: F10.129 Alcohol abuse with intoxication, unspecified (principal); K21.9 Gastro-esophageal reflux disease without esophagitis; F41.9 Anxiety disorder, unspecified; F32.A Depression, unspecified; F17.200 Nicotine dependence, unspecified, uncomplicated; Z88.0 Allergy status to penicillin; Z79.899 Other long term (current) drug therapy; Z53.29 Procedure and treatment not carried out because of patient's decision for other reasons
CPT/HCPCS: 99284

== ENCOUNTER 2023-10-23 17:07 | Emergency (ER) | payer OTHER ==
--- NOTE | 2023-10-23 17:15 | ED ---
General Adult HPI - General Source: patient, RN notes reviewed Mode of arrival: ambulatory Limitations: no limitations <Kylee Lucia - Last Filed: 10/23/23 17:14> <Flakita Quevedo - Last Filed: 10/24/23 00:52> - General Stated complaint: Thrush,left side ear pain Time Seen by Provider: 10/23/23 17:14 - History of Present Illness Initial comments: Quick note: Patient is a 53-year-old male presented to ER with chief complaint of left ear pain. States he was seen at urgent care yesterday and diagnosed with oral thrush. He states this been going on for a week and his symptoms have not improved. Reporting chills. Denies any fevers. (Kylee Lucia) 53-year-old male presenting with chief complaint of left ear pain. States that this pain has been ongoing for about a week. He has significant hearing loss in the left ear. He also admits to left-sided sinus pressure. He admits to a thick white coating on the tongue. He was seen at urgent care 2 days ago and diagnosed with thrush and an ear infection, he was started on Keflex, nystatin, and eardrops. No injury or trauma. No bleeding or discharge from the ears. No fevers. No difficulty breathing. No nausea, vomiting, abdominal pain. (Flakita Quevedo) - Related Data Home Medications Medication Instructions Recorded Confirmed Mirtazapine [Remeron] 30 mg PO HS 04/05/22 04/05/22 Naltrexone HCl [Revia] 50 mg PO DAILY 04/05/22 04/05/22 Sildenafil Citrate 100 mg PO DAILY PRN 04/05/22 04/05/22 traZODone HCL 100 mg PO HS 04/05/22 04/05/22 Previous Rx's Medication Instructions Recorded chlordiazePOXIDE HCl [Librium] 20 mg PO QID 5 Days #20 cap 04/08/22 Cefdinir 300 mg PO Q12HR 7 Days #14 cap 10/23/23 Clotrimazole Delia [Mycelex 10 mg MUCOUS MEM 5XD 7 Days #35 10/23/23 Delia] delia Allergies Allergy/AdvReac Type Severity Reaction Status Date / Time Penicillins Allergy see Verified 04/05/22 17:04 comments Review of Systems ROS Other: All systems not noted in ROS Statement are negative. <Kylee Lucia - Last Filed: 10/23/23 17:14> ROS Other: All systems not noted in ROS Statement are negative. <Flakita Quevedo - Last Filed: 10/24/23 00:52> ROS Statement: Those systems with pertinent positive or pertinent negative responses have been documented in the HPI. Past Medical History Past Medical History: GERD/Reflux Additional Past Medical History / Comment(s): ETOH abuse with past withdrawals of tremors/hallucinations/seizure, low back pain, multiple fractures/liver laceration pt states all work related. History of Any Multi-Drug Resistant Organisms: None Reported Past Surgical History: Orthopedic Surgery Additional Past Surgical History / Comment(s): Bilateral arm fractures with surgical repair, penile fracture with repair, colonoscopy. Past Anesthesia/Blood Transfusion Reactions: No Reported Reaction Past Psychological History: Anxiety, Depression Smoking Status: Current every day smoker Past Alcohol Use History: Abuse, Daily, Heavy Past Drug Use History: None Reported - Past Family History Father Family Medical History: Cancer Additional Family Medical History / Comment(s): Brain CA and is . Mother Family Medical History: CVA/TIA Additional Family Medical History / Comment(s): Mother is living. <Kylee Lucia - Last Filed: 10/23/23 17:14> General Exam <Kylee Lucia - Last Filed: 10/23/23 17:14> Limitations: no limitations General appearance: alert, in no apparent distress Head exam: Present: atraumatic, normocephalic Eye exam: Present: normal appearance Expanded Ear exam: Present: normal external inspection TM/Canal exam: Erythema: Right TM, Perforation: Left TM (No evidence of foreign body or mastoid erythema or tenderness) Mouth exam: Present: other (Patient has a thick white coating to the tongue). Absent: drooling, trismus, muffled voice Neck exam: Present: normal inspection Respiratory exam: Present: normal lung sounds bilaterally. Absent: respiratory distress, wheezes, rales, rhonchi, stridor Cardiovascular Exam: Present: regular rate, normal rhythm, normal heart sounds. Absent: systolic murmur, diastolic murmur, rubs, gallop, clicks Neurological exam: Present: alert, oriented X3 Psychiatric exam: Present: normal affect, normal mood Skin exam: Present: warm, dry <Flakita Quevedo - Last Filed: 10/24/23 00:52> - General Exam Comments Initial Comments: Visual Physical Exam Vital signs reviewed General: Intoxicated, alcohol odor on breath nontoxic, no acute distress. Head: Normocephalic, atraumatic Eyes: PERRLA, EOMI ENT: Airway patent, white plaque on tongue Chest: Nonlabored breathing Skin: No visual rash, normal skin tone Neuro: Alert and oriented 3 Musculoskeletal: No gross abnormalities (Kylee Lucia) Course Vital Signs 10/23/23 10/23/23 17:16 19:53 Temperature 98.3 F Pulse Rate 89 82 Respiratory 20 18 Rate Blood Pressure 160/106 133/92 O2 Sat by Pulse 97 95 Oximetry Medical Decision Making <Kylee Lucia - Last Filed: 10/23/23 17:14> <Flakita Quevedo - Last Filed: 10/24/23 00:52> - Medical Decision Making I performed the quick note portion of this chart. Electronically signed by Kylee Lucia PA-C (Kylee Lucia) Was pt. sent in by a medical professional or institution ([facility], [employer], urgent care, hospital, or care home...) When possible be specific @ -No Did you speak to anyone other than the patient for history (EMS, parent, family, police, friend...)? What history was obtained from this source @ -No Did you review nursing and triage notes (agree or disagree)? Why? @ -I reviewed and agree with nursing and triage notes Were old charts reviewed (outside hosp., previous admission, EMS record, old EKG, old radiological studies, urgent care reports/EKG's, care home records)? Report findings @ -No old charts were reviewed Differential Diagnosis (chest pain, altered mental status, abdominal pain women, abdominal pain men, vaginal bleeding, weakness, fever, dyspnea, syncope, headache, dizziness, GI bleed, back pain, seizure, CVA, palpatations, mental health, musculoskeletal)? @ -Differential includes otitis media, otitis externa, foreign body, mastoiditis, this is not an all-inclusive list EKG interpreted by me (3pts min.). @ -As above X-rays interpreted by me (1pt min.). @ -None done CT interpreted by me (1pt min.). @ -None done U/S interpreted by me (1pt. min.). @ -None done What testing was considered but not performed or refused? (CT, X-rays, U/S, labs)? Why? @ -None What meds were considered but not given or refused? Why? @ -None Did you discuss the management of the patient with other professionals (professionals i.e. , PA, [employer] DATA [employer]AD, lab, RT, psych nurse, social worker assistant, dust box worker, teacher, building drafting officer, rehabilitation case coordinator)? Give summary @ -No Was smoking cessation discussed for >3mins.? @ -No Was critical care preformed (if so, how long)? @ -No Were there social determinants of health that impacted care today? How? (Homelessness, low income, unemployed, alcoholism, drug addiction, transportation, low edu. Level, literacy, decrease access to med. care, half-way, rehab)? @ -No Was there de-escalation of care discussed even if they declined (Discuss DNR or withdrawal of care, Hospice)? DNR status @ -No What co-morbidities impacted this encounter? (DM, HTN, Smoking, COPD, CAD, Cancer, CVA, ARF, Chemo, Hep., AIDS, mental health diagnosis, sleep apnea, morbid obesity)? @ -None Was patient admitted / discharged? Hospital course, mention meds given and route, prescriptions, significant lab abnormalities, going to OR and other pertinent info. @ -53-year-old male presenting with chief complaint of left-sided ear pain. On physical exam there appears to be a left-sided tympanic membrane rupture. Right-sided tympanic membrane also appears erythematous. No evidence of mastoid erythema or swelling. Patient also has a thick white coating to the tongue. Patient is started on cefdinir for ear infection and clotrimazole for thrush. Instructed to follow-up with ENT. Discharged home. Follow-up with PCP. Report back to ER with any new or worsening symptoms. Discussed return parameters and answered all questions. Patient conveyed verbal understanding and agreed to the plan. I discussed this case in detail with my attending Dr. Millard Undiagnosed new problem with uncertain prognosis? @ -No Drug Therapy requiring intensive monitoring for toxicity (Heparin, Nitro, Insulin, Cardizem)? @ -No Were any procedures done? @ -No Diagnosis/symptom? @ -Otitis media, tympanic membrane rupture, thrush Acute, or Chronic, or Acute on Chronic? @ -Acute Uncomplicated (without systemic symptoms) or Complicated (systemic symptoms)? @ -Uncomplicated Side effects of treatment? @ -No Exacerbation, Progression, or Severe Exacerbation? @ -No Poses a threat to life or bodily function? How? (Chest pain, [place], [place], pneumonia, PE, COPD, DKA, ARF, appy, cholecystitis, CVA, Diverticulitis, Homicidal, Suicidal, threat to staff... and all critical care pts) @ -No (Flakita Quevedo) - Lab Data Lab Results 10/23/23 Range/Units 17:18 Influenza Type A (PCR) Not Detected (Not Detectd) Influenza Type B (PCR) Not Detected (Not Detectd) RSV (PCR) Not Detected (Not Detectd) SARS-CoV-2 (PCR) Not Detected (Not Detectd) Disposition <Kylee Lucia - Last Filed: 10/23/23 17:14> Is patient prescribed a controlled substance at d/c from ED?: No Time of Disposition: 19:41 <Flakita Quevedo - Last Filed: 10/24/23 00:52> Clinical Impression: Otitis media, Tympanic membrane rupture, Oral thrush Disposition: HOME SELF-CARE Condition: Good Instructions (If sedation given, give patient instructions): Ruptured Eardrum (ED), Oral Candidiasis (ED), Ear Infection (ED) Additional Instructions: Follow-up with PCP and ENT. Report back to ER with any new or worsening symptoms. Prescriptions: Cefdinir 300 mg PO Q12HR 7 Days #14 cap Clotrimazole Delia [Mycelex Delia] 10 mg MUCOUS MEM 5XD 7 Days #35 delia Referrals: Parmjit Rider MD [Primary Care Provider] - 1-2 days Tam Gallardo MD [STAFF PHYSICIAN] - 1-2 days
[2023-10-23 17:24] VITALS: TEMP 98.3
[2023-10-23 20:28] VITALS: BP 133/92; PULSE 82; RESP 18
== END 2023-10-23 20:45 | disposition home or self-care (01) ==
LOC: EC 17:07
DX: H66.92 Otitis media, unspecified, left ear (principal); H72.92 Unspecified perforation of tympanic membrane, left ear; B37.0 Candidal stomatitis; F17.200 Nicotine dependence, unspecified, uncomplicated; Z88.0 Allergy status to penicillin; Z11.52 Encounter for screening for COVID-19
CPT/HCPCS: 87636; 99283